=== PATIENT | female | born 1955 | race Caucasian/White ===

== ENCOUNTER 2020-04-29 09:09 | Outpatient (REF) | payer MEDICARE, OTHER, SELFPAY ==
--- NOTE | 2020-04-29 09:14 | MM_ITS ---
EXAMINATION: MM SCREENING DIGITAL BREAST TOMOSYNTHESIS, BILATERAL CLINICAL INFORMATION: Screening. Asymptomatic. The lifetime risk of breast cancer based on the Tyrer-Cuzick Model is 19%. COMPARISON: Mammography: 04/24/2019, 04/22/2018, 04/20/2017 TECHNIQUE: Digital breast tomosynthesis is performed in both the craniocaudal and mediolateral oblique views along with computer-aided detection (CAD). Synthesized 2D images are generated from the tomosynthesis. Additional exaggerated right CC view is provided. FINDINGS: The breasts are heterogeneously dense, which may obscure small masses (ACR BI-RADS breast composition Category c). Breast tissue composition borders on average fibroglandular. There are no significant masses, abnormal calcifications, or other abnormalities. No significant changes from prior studies. MM/MM tomosynthesis screening BI IMPRESSION: No significant changes from prior studies. ASSESSMENT: BI-RADS 1: Negative RECOMMENDATION: Routine annual mammography screening. This patient's information was entered into a reminder system with a target due date for their next mammogram.
== END 2020-04-29 09:10 | disposition home or self-care (01) ==
LOC: HO.MAMMO 09:09
PROVIDERS: PCP Internal Medicine; Visit Provider Internal Medicine
DX: Z12.31 Encounter for screening mammogram for malignant neoplasm of breast (principal)
CPT/HCPCS: 77063; 77067

== ENCOUNTER → 2021-01-05 08:41 | Outpatient (BNVA) | payer MEDICARE, OTHER, SELFPAY | PROVIDERS: PCP Internal Medicine; Visit Provider Advanced Practice Midwife ==

== ENCOUNTER 2021-03-30 08:45 | Outpatient (REF) | payer MEDICARE, OTHER, SELFPAY ==
[2021-03-30 11:37] LABS: MANUAL DIFF FLAG NO
[2021-03-30 11:55] LABS: Basophils Absolute Auto 0.1 X10*3/uL (0.0-0.2); Basophils Percent Auto 1.9 % (0-2); Eosinophils Absolute Auto 0.3 X10*3/uL (0.0-0.4); Eosinophils Percent Auto 8.3 % (0-4); Hematocrit 44.6 % (37-47); Hemoglobin 14.4 g/dl (12.0-16.0); Imm Gran Abs Auto 0.01 X10*3/uL (0.00-0.03); Imm Gran Pct Auto 0.3 % (0.0-0.4); Lymphocytes Absolute Auto 1.2 X10*3/uL (1.2-4.9); Lymphocytes Percent Auto 33.1 % (20-40); Mean Corpuscular HGB Conc 32.3 g/dl (31.0-35.0); Mean Corpuscular Hemoglobin 30.5 pg (27.0-33.0); Mean Corpuscular Volume 94.5 fL (80-98); Mean Platelet Volume 10.9 fL (9.4-12.3); Monocytes Absolute Auto 0.4 X10*3/uL (0.1-1.2); Monocytes Percent Auto 11.3 % (2-11); Neutrophils Absolute Auto 1.6 X10*3/uL (2.0-8.3); Neutrophils Percent Auto 45.1 % (45-73); Platelet Count 236 X10*3/uL (160-400); Red Blood Count 4.72 X10*6/uL (4.20-5.50); Red Cell Distribution Width 13.1 % (11.0-16.0); White Blood Count 3.6 X10*3/uL (4.8-10.8)
[2021-03-30 11:58] LABS: Alanine Aminotransferase 20 U/L (0-31); Albumin Level 4.3 g/dL (3.5-5.0); Alkaline Phosphatase 88 U/L (39-117); Anion Gap 11 (12-20); Aspartate Amino Transferase 16 U/L (5-31); Bilirubin Total 0.8 mg/dL (0.0-1.0); Blood Urea Nitrogen 16 mg/dL (9-16); Calcium 9.4 mg/dL (8.4-10.2); Carbon Dioxide 29 mmol/L (22-29); Chloride 105 mmol/L (96-108); Cholesterol 224 mg/dL; Estimated Glomerular Filt Rate > 60; Glucose Fasting 87 mg/dL (60-99); HDL Cholesterol 69 mg/dL; LDL Cholesterol Calculated 139 mg/dl; Potassium 3.9 mmol/L (3.3-5.1); Sodium 141 mmol/L (135-145); Total Protein 6.9 g/dL (6.5-8.0); Triglycerides 81 mg/dL
[2021-03-30 12:20] LABS: Vitamin D 25-OH Total 57.2 ng/mL (>30)
== END 2021-03-30 08:46 | disposition home or self-care (01) ==
LOC: HO.HMGCLDS 08:45
PROVIDERS: PCP Internal Medicine; Visit Provider Internal Medicine
DX: E78.00 Pure hypercholesterolemia, unspecified (principal); M54.9 Dorsalgia, unspecified; K21.9 Gastro-esophageal reflux disease without esophagitis; M85.80 Other specified disorders of bone density and structure, unspecified site
CPT/HCPCS: 36415; 80053; 80061; 82306; 85025

== ENCOUNTER 2021-05-03 13:17 | Outpatient (REF) | payer MEDICARE, OTHER, SELFPAY ==
--- NOTE | ~2021-05-03 | MM_ITS ---
EXAMINATION: BONE DENSITOMETRY CLINICAL INDICATION: Encounter for screening for osteoporosis. COMPARISON: Previous BD dated 04/10/2014 and baseline BD dated 05/28/2008. TECHNIQUE: Using a Android App Review Source DXA System (software version: 13.1) manufactured by [employer], dual-energy x-ray absorptiometry was performed of the lumbar spine and left hip. The images are of good technical quality. Summary results are attached. FINDINGS: AP SPINE L1-L4: Current: BMD 1.101 g/cm2, Z-score 2.3, T-score -0.7, normal, 0.5% increase from previous, 1.2% decrease from baseline (<5% change is not significant). Prior: BMD 1.095 g/cm2. Baseline: BMD 1.114 g/cm2. LEFT FEMUR, NECK: Current: BMD 0.813 g/cm2, Z-score 0.8, T-score -1.6, osteopenia. Prior: BMD 0.831 g/cm2. Baseline: BMD 0.981 g/cm2. LEFT FEMUR, TOTAL: Current: BMD 0.779 g/cm2, Z-score 0.4, T-score -1.8, osteopenia, 11.4% decrease from previous, 20.1% decrease from baseline (<5% change is not significant). Prior: BMD 0.879 g/cm2. Baseline: BMD 0.975 g/cm2. IDENTIFIED RISK FACTORS: Height loss, low body weight, family history (parental hip fracture), menopause. HISTORY OF FRACTURE: None listed. MEDICATIONS: Calcium supplements or multivitamin, vitamin D. MM/XR DEXA axial skeleton IMPRESSION: 1. DIAGNOSIS: Osteopenia based on the lowest T-score value of -1.8 in the total femur applying World Health Organization criteria. 2. 10-YEAR FRACTURE RISK PREDICTION, FRAX: Major osteoporotic fracture (clinical spine, forearm, hip or shoulder) 8.0%. Hip fracture 1.0%. 3. Treatment Recommendations: NOF guidelines recommend consideration for treatment in postmenopausal women and men age 50 and older presenting with the following: -A hip or vertebral (clinical or morphometric) fracture. -T-score less than or equal to -2.5 at the femoral neck or spine after appropriate evaluation to exclude secondary causes. -Low bone mass at the hip or spine and a 10-year fracture probability by FRAX of greater than or equal to 3% for hip fracture or greater than or equal to 20% for major osteoporotic fracture based on the [place] adapted WHO algorithm. 4. Other Recommendations: All treatment decisions require clinical judgment and consideration of individual patient factors, including patient preferences, comorbidities, previous drug use, risk factors not captured in the FRAX model (e.g. frailty, falls, vitamin D deficiency, increased bone turnover, interval significant decline in bone density) and possible under or overestimation of fracture risk by FRAX. Additional medical evaluation for secondary cause of low bone mineral density may be appropriate. FUTURE SCAN RECOMMENDATION: People with diagnosed cases of osteoporosis or at high risk for fracture should have regular bone mineral density tests. For patients eligible for Medicare, routine testing is allowed once every 2 years. The testing frequency can be increased to one year for patients who have rapidly progressing disease, those who are receiving or discontinuing medical therapy to restore bone mass, or have additional risk factors.
== END 2021-05-03 13:18 | disposition home or self-care (01) ==
LOC: HO.MAMMO 13:17
PROVIDERS: Visit Provider Internal Medicine
DX: Z13.820 Encounter for screening for osteoporosis (principal); M85.80 Other specified disorders of bone density and structure, unspecified site; Z78.0 Asymptomatic menopausal state; Z79.899 Other long term (current) drug therapy; Z87.81 Personal history of (healed) traumatic fracture
CPT/HCPCS: 77080

== ENCOUNTER 2021-05-11 15:05 | Outpatient (REF) | payer MEDICARE, OTHER, SELFPAY ==
--- NOTE | ~2021-05-11 | MM_ITS ---
EXAMINATION: MM SCREENING DIGITAL BREAST TOMOSYNTHESIS, BILATERAL CLINICAL INFORMATION: Screening. Asymptomatic. The lifetime risk of breast cancer based on the Tyrer-Cuzick Model is 16%. COMPARISON: Mammography: 04/29/2020, 04/24/2019, 04/22/2018 TECHNIQUE: Digital breast tomosynthesis is performed in both the craniocaudal and mediolateral oblique views along with computer-aided detection (CAD). Synthesized 2D images are generated from the tomosynthesis. FINDINGS: The breasts are heterogeneously dense, which may obscure small masses (ACR BI-RADS breast composition Category c). There are no significant masses, abnormal calcifications, or other abnormalities. Breast tissue composition borders on average fibroglandular. No significant changes. MM/MM tomosynthesis screening BI IMPRESSION: No mammographic evidence of malignancy. ASSESSMENT: BI-RADS 1: Negative RECOMMENDATION: Routine annual mammography screening. This patient's information was entered into a reminder system with a target due date for their next mammogram.
== END 2021-05-11 15:06 | disposition home or self-care (01) ==
LOC: HO.MAMMO 15:05
PROVIDERS: Visit Provider Internal Medicine
DX: Z12.31 Encounter for screening mammogram for malignant neoplasm of breast (principal)
CPT/HCPCS: 77063; 77067

== ENCOUNTER 2021-05-17 14:04 | Outpatient (REF) | payer MEDICARE, OTHER, SELFPAY ==
--- NOTE | ~2021-05-17 | XR_ITS ---
EXAMINATION: XR THORACIC SPINE XR LUMBAR SPINE CLINICAL INFORMATION: Pain COMPARISON: 04/16/2014 TECHNIQUE: 3 views of the thoracic spine. 3 views of the lumbar spine. FINDINGS: Scoliotic curvature of the spine with dextroscoliosis at the lower thoracic and upper lumbar spine. Grade 1 retrolisthesis of L1 on L2 and L2 on L3. Vertebral body height and alignment otherwise maintained. Disc spaces are maintained throughout the thoracic spine. Disc space narrowing at L1-L2, L2-L3, and L3-L4. Associated endplate osteophytes. Facet arthropathy which is greatest at the lumbar spine. The sacroiliac joints are symmetric. The visualized sacrum is intact. The visualized lungs are clear. Normal bowel gas pattern. XR/XR lumbar spine 2-3V IMPRESSION: Scoliotic curvature of the spine. Degenerative changes are present which are greatest at the upper lumbar spine. These have progressed since prior in 2013.
--- NOTE | ~2021-05-17 | XR_ITS ---
EXAMINATION: XR THORACIC SPINE XR LUMBAR SPINE CLINICAL INFORMATION: Pain COMPARISON: 04/16/2014 TECHNIQUE: 3 views of the thoracic spine. 3 views of the lumbar spine. FINDINGS: Scoliotic curvature of the spine with dextroscoliosis at the lower thoracic and upper lumbar spine. Grade 1 retrolisthesis of L1 on L2 and L2 on L3. Vertebral body height and alignment otherwise maintained. Disc spaces are maintained throughout the thoracic spine. Disc space narrowing at L1-L2, L2-L3, and L3-L4. Associated endplate osteophytes. Facet arthropathy which is greatest at the lumbar spine. The sacroiliac joints are symmetric. The visualized sacrum is intact. The visualized lungs are clear. Normal bowel gas pattern. XR/XR thoracic spine 3V IMPRESSION: Scoliotic curvature of the spine. Degenerative changes are present which are greatest at the upper lumbar spine. These have progressed since prior in 2013.
== END 2021-05-17 14:05 | disposition home or self-care (01) ==
LOC: HO.HMGCX 14:04
PROVIDERS: PCP Internal Medicine; Visit Provider Internal Medicine
DX: M41.9 Scoliosis, unspecified (principal)
CPT/HCPCS: 72072; 72100

== ENCOUNTER 2022-03-27 08:58 | Outpatient (REF) | payer MEDICARE, OTHER, SELFPAY ==
[2022-03-27 11:22] LABS: MANUAL DIFF FLAG NO
[2022-03-27 11:43] LABS: Basophils Absolute Auto 0.1 X10*3/uL (0.0-0.2); Basophils Percent Auto 1.9 % (0-2); Eosinophils Absolute Auto 0.5 X10*3/uL (0.0-0.4); Eosinophils Percent Auto 10.9 % (0-4); Hematocrit 46.4 % (37.0-47.0); Hemoglobin 15.1 g/dl (12.0-16.0); Imm Gran Abs Auto 0.02 X10*3/uL (0.00-0.03); Imm Gran Pct Auto 0.5 % (0.0-0.4); Lymphocytes Absolute Auto 1.6 X10*3/uL (1.2-4.9); Lymphocytes Percent Auto 38.1 % (20-40); Mean Corpuscular HGB Conc 32.5 g/dl (31.0-35.0); Mean Corpuscular Hemoglobin 30.8 pg (27.0-33.0); Mean Corpuscular Volume 94.5 fL (80.0-98.0); Mean Platelet Volume 10.7 fL (9.4-12.3); Monocytes Absolute Auto 0.5 X10*3/uL (0.1-1.2); Monocytes Percent Auto 11.9 % (2-11); Neutrophils Absolute Auto 1.5 x10*3/uL (2.0-8.3); Neutrophils Percent Auto 36.7 % (45-73); Platelet Count 247 X10*3/uL (160-400); Red Blood Count 4.91 X10*6/uL (4.20-5.50); Red Cell Distribution Width 12.7 % (11.0-16.0); White Blood Count 4.1 X10*3/uL (4.8-10.8)
[2022-03-27 12:13] LABS: Alanine Aminotransferase 21 U/L (0-31); Albumin Level 4.4 g/dL (3.5-5.0); Alkaline Phosphatase 94 U/L (39-117); Anion Gap 17 (12-20); Aspartate Amino Transferase 22 U/L (5-31); Bilirubin Total 0.4 mg/dL (0.0-1.0); Blood Urea Nitrogen 16 mg/dL (9-16); Calcium 9.5 mg/dL (8.4-10.2); Carbon Dioxide 28 mmol/L (22-29); Chloride 102 mmol/L (96-108); Cholesterol 244 mg/dL; Estimated Glomerular Filt Rate > 60; Glucose Fasting 90 mg/dL (60-99); HDL Cholesterol 75 mg/dL; LDL Cholesterol Calculated 149 mg/dl; Potassium 4.1 mmol/L (3.3-5.1); Sodium 143 mmol/L (135-145); Total Protein 7.2 g/dL (6.5-8.0); Triglycerides 104 mg/dL
== END 2022-03-27 08:59 | disposition home or self-care (01) ==
LOC: HO.HMGCLDS 08:58
PROVIDERS: PCP Internal Medicine; Visit Provider Internal Medicine
DX: Z00.00 Encounter for general adult medical examination without abnormal findings (principal)
CPT/HCPCS: 36415; 80053; 80061; 85025

== ENCOUNTER 2022-05-17 09:38 | Outpatient (REF) | payer MEDICARE, OTHER, SELFPAY ==
--- NOTE | ~2022-05-17 | MM_ITS ---
EXAMINATION: MM SCREENING DIGITAL BREAST TOMOSYNTHESIS, BILATERAL CLINICAL INFORMATION: Screening. Asymptomatic. Family history breast cancer, mother age 41 and maternal grandmother age 51. The lifetime risk of breast cancer based on the Tyrer-Cuzick Model is 15%. COMPARISON: Mammography: 05/11/2021, 04/29/2020, 04/24/2019 TECHNIQUE: Digital breast tomosynthesis is performed in both the craniocaudal and mediolateral oblique views along with computer-aided detection (CAD). Synthesized 2D images are generated from the tomosynthesis. FINDINGS: There are scattered areas of fibroglandular density (ACR BI-RADS breast composition Category b). Breast tissue composition borders on heterogeneously dense. There is no significant mass or developing density or architectural abnormality. Small circumscribed nodule periareolar 3:00 left breast is similar to prior exams, better appreciated on tomography. There are no abnormal calcifications. The axilla and skin contours are unremarkable. MM/MM tomosynthesis screening BI IMPRESSION: No significant changes from prior studies. ASSESSMENT: BI-RADS 2: Benign RECOMMENDATION: Routine annual mammography screening. This patient's information was entered into a reminder system with a target due date for their next mammogram.
== END 2022-05-17 09:39 | disposition home or self-care (01) ==
LOC: HO.MAMMO 09:38
PROVIDERS: PCP Internal Medicine; Visit Provider Internal Medicine
DX: Z12.31 Encounter for screening mammogram for malignant neoplasm of breast (principal)
CPT/HCPCS: 77063; 77067

== ENCOUNTER 2022-07-07 08:46 | Outpatient (REF) | payer MEDICARE, OTHER, SELFPAY ==
[2022-07-07 11:59] LABS: Cholesterol 217 mg/dL; HDL Cholesterol 64 mg/dL; LDL Cholesterol Calculated 138 mg/dl; Triglycerides 79 mg/dL
== END 2022-07-07 08:47 | disposition home or self-care (01) ==
LOC: HO.HMGCLDS 08:46
PROVIDERS: Visit Provider Internal Medicine
DX: E78.00 Pure hypercholesterolemia, unspecified (principal)
CPT/HCPCS: 36415; 80061

== ENCOUNTER 2023-03-16 07:21 | Outpatient (REF) | payer MEDICARE, OTHER, SELFPAY ==
[2023-03-16 11:29] LABS: MANUAL DIFF FLAG NO
[2023-03-16 11:46] LABS: Basophils Absolute Auto 0.1 X10*3/uL (0.0-0.2); Basophils Percent Auto 1.7 % (0-2); Eosinophils Absolute Auto 0.5 X10*3/uL (0.0-0.4); Eosinophils Percent Auto 12.6 % (0-4); Hematocrit 44.5 % (37.0-47.0); Hemoglobin 14.7 g/dl (12.0-16.0); Imm Gran Abs Auto 0.01 X10*3/uL (0.00-0.03); Imm Gran Pct Auto 0.2 % (0.0-0.4); Lymphocytes Absolute Auto 1.6 X10*3/uL (1.2-4.9); Lymphocytes Percent Auto 39.9 % (20-40); Mean Corpuscular Hemoglobin 31.5 pg (27.0-33.0); Mean Corpuscular Volume 95.3 fL (80.0-98.0); Mean Platelet Volume 10.6 fL (9.4-12.3); Monocytes Absolute Auto 0.5 X10*3/uL (0.1-1.2); Monocytes Percent Auto 12.1 % (2-11); Neutrophils Absolute Auto 1.4 x10*3/uL (2.0-8.3); Neutrophils Percent Auto 33.5 % (45-73); Platelet Count 231 X10*3/uL (160-400); Red Blood Count 4.67 X10*6/uL (4.20-5.50); Red Cell Distribution Width 12.7 % (11.0-16.0)
[2023-03-16 13:01] LABS: Alanine Aminotransferase 16 U/L (0-31); Albumin Level 4.4 g/dL (3.5-5.0); Alkaline Phosphatase 81 U/L (39-117); Anion Gap 15 (12-20); Aspartate Amino Transferase 20 U/L (5-31); Bilirubin Total 0.5 mg/dL (0.0-1.0); Blood Urea Nitrogen 19 mg/dL (9-16); Calcium 9.6 mg/dL (8.4-10.2); Carbon Dioxide 28 mmol/L (22-29); Chloride 102 mmol/L (96-108); Cholesterol 213 mg/dL (<200); Estimated Glomerular Filt Rate > 60; Glucose Fasting 76 mg/dL (60-99); HDL Cholesterol 72 mg/dL (>40); LDL Cholesterol Calculated 124 mg/dL (<100); Potassium 3.5 mmol/L (3.3-5.1); Sodium 141 mmol/L (135-145); Total Protein 7.4 g/dL (6.5-8.0); Triglycerides 88 mg/dL (<150)
[2023-03-16 13:20] LABS: Vitamin D 25-OH Total 70.7 ng/mL (>30)
== END 2023-03-16 07:22 | disposition home or self-care (01) ==
LOC: HO.HMGCLDS 07:21
PROVIDERS: PCP Internal Medicine; Visit Provider Internal Medicine
DX: E78.00 Pure hypercholesterolemia, unspecified (principal); M85.80 Other specified disorders of bone density and structure, unspecified site; K21.9 Gastro-esophageal reflux disease without esophagitis
CPT/HCPCS: 36415; 80053; 80061; 82306; 85025

== ENCOUNTER 2023-05-23 09:17 | Outpatient (REF) | payer MEDICARE, OTHER, SELFPAY | END 2023-05-23 09:18 | disposition home or self-care (01) | LOC: HO.MAMMO 09:17 | PROVIDERS: PCP Internal Medicine; Visit Provider Internal Medicine | DX: Z12.31 Encounter for screening mammogram for malignant neoplasm of breast (principal) | CPT/HCPCS: 77063; 77067 ==

== ENCOUNTER → 2023-05-23 09:30 | Outpatient (BNV) | payer MEDICARE, OTHER, SELFPAY | PROVIDERS: PCP Internal Medicine; Visit Provider Radiology Diagnostic Radiology | DX: Z12.31 Encounter for screening mammogram for malignant neoplasm of breast (principal) | CPT/HCPCS: 77063; 77067 ==

== ENCOUNTER 2023-10-23 10:12 | Outpatient (REF) | payer MEDICARE, OTHER, SELFPAY ==
[2023-10-23 11:09] LABS: MANUAL DIFF FLAG NO
[2023-10-23 11:14] LABS: Basophils Absolute Auto 0.1 X10*3/uL (0.0-0.2); Basophils Percent Auto 1.7 % (0-2); Eosinophils Absolute Auto 0.3 X10*3/uL (0.0-0.4); Eosinophils Percent Auto 8.6 % (0-4); Hemoglobin 14.5 g/dl (12.0-16.0); Imm Gran Abs Auto 0.01 X10*3/uL (0.00-0.03); Imm Gran Pct Auto 0.3 % (0.0-0.4); Lymphocytes Absolute Auto 1.2 X10*3/uL (1.2-4.9); Lymphocytes Percent Auto 33.4 % (20-40); Mean Corpuscular Hemoglobin 31.3 pg (27.0-33.0); Monocytes Absolute Auto 0.5 X10*3/uL (0.1-1.2); Monocytes Percent Auto 13.4 % (2-11); Neutrophils Absolute Auto 1.5 x10*3/uL (2.0-8.3); Neutrophils Percent Auto 42.6 % (45-73); Platelet Count 214 X10*3/uL (160-400); Red Blood Count 4.63 X10*6/uL (4.20-5.50); Red Cell Distribution Width 12.7 % (11.0-16.0); White Blood Count 3.6 X10*3/uL (4.8-10.8)
[2023-10-23 12:59] LABS: Alanine Aminotransferase 16 U/L (0-31); Albumin Level 4.3 g/dL (3.5-5.0); Alkaline Phosphatase 89 U/L (39-117); Anion Gap 13 (12-20); Aspartate Amino Transferase 18 U/L (5-31); Bilirubin Total 0.3 mg/dL (0.0-1.0); Blood Urea Nitrogen 22 mg/dL (9-16); Calcium 9.7 mg/dL (8.4-10.2); Carbon Dioxide 30 mmol/L (22-29); Chloride 100 mmol/L (96-108); Estimated Glomerular Filt Rate > 60; Lipase 37 U/L (8-78); Potassium 4.1 mmol/L (3.3-5.1); Sodium 139 mmol/L (135-145); Total Protein 7.3 g/dL (6.5-8.0)
[2023-10-23 13:09] LABS: Glucose Random 49 mg/dL (60-115)
== END 2023-10-23 10:13 | disposition home or self-care (01) ==
LOC: HO.10HDL 10:12
PROVIDERS: Visit Provider Internal Medicine
DX: R10.9 Unspecified abdominal pain (principal); R63.4 Abnormal weight loss; K21.9 Gastro-esophageal reflux disease without esophagitis
CPT/HCPCS: 36415; 80053; 83690; 85025

== ENCOUNTER 2023-10-24 13:13 | Outpatient (REF) | payer MEDICARE, OTHER, SELFPAY ==
[2023-10-24 16:45] LABS: Insulin 5 uU/mL (2-29)
== END 2023-10-24 13:14 | disposition home or self-care (01) ==
LOC: HO.HMGCLDS 13:13
PROVIDERS: PCP Internal Medicine; Visit Provider Internal Medicine
DX: D64.9 Anemia, unspecified (principal)
CPT/HCPCS: 36415; 83525

== ENCOUNTER 2023-12-18 09:15 | Outpatient (REF) | payer MEDICARE, OTHER, SELFPAY ==
[2023-12-18 10:43] LABS: MANUAL DIFF FLAG NO
[2023-12-18 10:56] LABS: Basophils Absolute Auto 0.1 X10*3/uL (0.0-0.2); Basophils Percent Auto 1.3 % (0-2); Eosinophils Absolute Auto 0.5 X10*3/uL (0.0-0.4); Eosinophils Percent Auto 10.8 % (0-4); Hematocrit 44.8 % (37.0-47.0); Hemoglobin 14.7 g/dl (12.0-16.0); Lymphocytes Absolute Auto 1.1 X10*3/uL (1.2-4.9); Lymphocytes Percent Auto 23.1 % (20-40); Mean Corpuscular HGB Conc 32.8 g/dl (31.0-35.0); Mean Corpuscular Hemoglobin 31.7 pg (27.0-33.0); Mean Corpuscular Volume 96.6 fL (80.0-98.0); Mean Platelet Volume 10.6 fL (9.4-12.3); Monocytes Absolute Auto 0.5 X10*3/uL (0.1-1.2); Monocytes Percent Auto 10.1 % (2-11); Neutrophils Absolute Auto 2.5 x10*3/uL (2.0-8.3); Neutrophils Percent Auto 54.7 % (45-73); Platelet Count 216 X10*3/uL (160-400); Red Blood Count 4.64 X10*6/uL (4.20-5.50); Red Cell Distribution Width 12.6 % (11.0-16.0); White Blood Count 4.5 X10*3/uL (4.8-10.8)
[2023-12-18 11:26] LABS: Erythrocyte Sedimentation Rate 2 MM/HR (0-20)
[2023-12-18 11:37] LABS: Alanine Aminotransferase 15 U/L (0-31); Albumin Level 4.4 g/dL (3.5-5.0); Alkaline Phosphatase 99 U/L (39-117); Amylase 71 U/L (28-100); Aspartate Amino Transferase 17 U/L (5-31); Bilirubin Direct < 0.2 mg/dL (0.0-0.5); Bilirubin Total 0.2 mg/dL (0.0-1.0); C Reactive Protein < 0.04 mg/dL (< or = 0.50); Lipase 35 U/L (8-78); Total Protein 7.2 g/dL (6.5-8.0)
[2023-12-19 13:48] LABS: Gliadin Deamidated IgA Ab <1.0 U/mL; Gliadin Deamidated IgG Ab <1.0 U/mL; Transglutaminase Ab IgG <1.0 U/mL; Transglutaminase IgA <1.0 U/mL
[2023-12-20 08:48] LABS: Immunoglobulin A 94 mg/dL (70-320)
[2023-12-26 12:03] LABS: Endomysial IgA Antibody Negative (Negative)
== END 2023-12-18 09:16 | disposition home or self-care (01) ==
LOC: HO.10HDL 09:15
PROVIDERS: Visit Provider Internal Medicine
DX: R10.13 Epigastric pain (principal); R93.3 Abnormal findings on diagnostic imaging of other parts of digestive tract; K21.9 Gastro-esophageal reflux disease without esophagitis
CPT/HCPCS: 36415; 80076; 82150; 82784; 83690; 85025; 85652; 86140; 86231; 86258; 86364

== ENCOUNTER 2023-12-19 10:16 | Outpatient (REF) | payer MEDICARE, OTHER, SELFPAY ==
--- NOTE | ~2023-12-19 | US_ITS ---
EXAMINATION: US ABDOMEN COMPLETE CLINICAL INFORMATION: History of abnormal CT imaging exam. Epigastric abdominal pain. COMPARISON: None available. TECHNIQUE: Real-time imaging of the abdominal viscera. FINDINGS: PANCREAS: Normal. ABDOMINAL AORTA: The proximal, mid, and distal segments are normal in caliber. INFERIOR VENA CAVA: Visualized portions are normal. LIVER: Liver has normal size, contour and parenchymal echotexture. No evidence of focal lesion or intrahepatic ductal dilatation. GALLBLADDER: The gallbladder is physiologically distended without evidence of stones, sludge, wall thickening or pericholecystic fluid. 0.3 cm gallbladder polyp is noted. No imaging follow-up is recommended for a polyp of this size. COMMON BILE DUCT: Normal in caliber measuring 0.6 cm in diameter. KIDNEYS: The kidneys have normal size, cortical thickness and echotexture. No renal mass, nephrolithiasis or hydronephrosis. The right kidney is 11.9 cm and left kidney 11.5 cm in length. SPLEEN: Normal. The spleen measures 10.2 cm in maximum dimension. FREE FLUID: None. US/US abdomen complete IMPRESSION: * No acute sonographic abnormalities in the visualized abdomen. No evidence of cholelithiasis, cholecystitis or biliary tract obstruction. * Incidentally noted is a 0.3 cm gallbladder polyp.
== END 2023-12-19 10:17 | disposition home or self-care (01) ==
LOC: HO.HMGCX 10:16
PROVIDERS: PCP Internal Medicine; Visit Provider Internal Medicine
DX: R10.13 Epigastric pain (principal); R93.3 Abnormal findings on diagnostic imaging of other parts of digestive tract
CPT/HCPCS: 76700

== ENCOUNTER 2023-12-20 13:41 | Day surgery (SDC) | payer MEDICARE, OTHER, SELFPAY ==
[2023-12-20 14:01] VITALS: BMI 18.5
[2023-12-20 14:03] VITALS: BP 169/92; PULSE 57; RESP 16; TEMP 36.6; O2SAT 98
[2023-12-20] MEDS: Lactated Ringers 1,000 ML 50 ML IVCONT (14:23)
--- NOTE | 2023-12-20 14:24 | HO.ANESPROP2 ---
HPI - Anesthesia Eval Consult details Narrative: 68 yo female patient for EGD PMF Active Problems Active Problems: Back pain Kyphosis GERD Abdominal pain Past Medical History Medical History Benign breast lumps GERD (gastroesophageal reflux disease) Tubular adenoma Kyphosis Family History Family History Mother Breast cancer Heart attack Father Stroke HTN (hypertension) Family history of problems with anesthesia: No Surgical History Surgical History Hx of colonoscopy History of Problems with Anesthesia: No Social History Social History Household Members: None Housing: House Alcohol intake: never Patient Tobacco Use Status: Never used Tobacco Use of substances other than those prescribed or required for medical reasons: No Are you DNR?: No Advance Directives: No Advance Directives Information Provided: Yes Meds Allergies Allergy/AdvReac Type Severity Reaction Status Date / Time No Known Allergies Allergy Verified 12/20/23 13:57 Active Medications: Current Medications Lactated Ringer's (Lr) 1,000 mls @ 50 mls/hr IVCONT .Q20H GERALD Last Admin: 12/20/23 14:23 Dose: 50 mls/hr Home Medications ?Medication ?Instructions ?Recorded ?Confirmed ?Last Taken ?Type Claritin 10 mg PO DAILY 12/19/23 12/20/23 Unknown History CoQ-10 12/19/23 Unknown History Tylenol 12/19/23 Unknown History flaxseed oil 12/19/23 Unknown History gabapentin 100 mg tablet 100 mg PO BID 12/19/23 12/19/23 12/20/23 09:30 History magnesium 12/19/23 12/19/23 Unknown History multivitamin 12/19/23 Unknown History omeprazole 20 mg capsule,delayed 20 mg PO BID 12/19/23 12/19/23 12/20/23 07:15 History release Exam Height,Weight and Vital Signs: Height 5 ft 5 in Weight 50.53 kg Last Vital Signs Temp 97.9 F 12/20/23 14:03 Pulse 57 12/20/23 14:03 Resp 16 12/20/23 14:03 BP 169/92 H 12/20/23 14:03 Pulse Ox 98 12/20/23 14:03 O2 Del Method Room Air 12/20/23 14:03 Airway Mallampati Class: II TM Dist: >3cm Neck ROM: Full Loose/Missing/Broken Teeth: No (Denies broken, loose, missing teeth) Heart: RRR Lungs: CTAB Assessment and Plan Assessment Anesthesia Assessment: Anesthesia Plan Discussed and Chart Reviewed Final Anesthetic Review Family History of Problems with Anesthesia: No History of Problems with Anesthesia: No NPO: Yes ASA Class: II Final Preanesthetic Review: No Changes in Pt Med Stat, Meds/Allgs Chart Reviewed, Consent Obtained/Reviewed and Anes Risks/Benef Reviewed Patient Risk: Low Procedure Risk: Low Assessment/Block/Sedation in SS: Assess/Block/Sedation-SS Anesthetic Plan Anesthetic Plan: TIVA Disposition: Standard PACU
[2023-12-20 15:17] VITALS: BP 101/51; PULSE 73; RESP 16; TEMP 36.3; O2SAT 97
--- NOTE | 2023-12-20 15:19 | P.BOP_ITS ---
Brief Operative Note Date of Service: 12/20/23 Pre-op diagnosis: Abnormal CT of small bowel Post-op diagnosis: other (Hiatal hernia, normal small bowel) Procedure: EGD with Enteroscopy with biopsies Surgeon: Charli Hart MD Anesthesia: MAC Was an Fisheries Technical Officer used for this Procedure?: No Estimated blood loss (mL): 2.0 Pathology: other (A. Jejunum) Condition: stable Disposition: PACU
[2023-12-20 15:32] VITALS: BP 89/52; PULSE 61; RESP 16; O2SAT 96
[2023-12-20 15:47] VITALS: BP 143/63; PULSE 57; RESP 16; TEMP 36.1; O2SAT 96
--- NOTE | 2023-12-20 17:29 | OP_ITS ---
DATE OF SERVICE: 12/20/2023 SURGEON: Charli Hart MD INDICATIONS: The patient presents for evaluation of previous abdominal discomfort and abnormal CT scan of GI tract. Full consent has been obtained from her for this, including risks of bleeding and perforation. PREOPERATIVE DIAGNOSIS: POSTOPERATIVE DIAGNOSIS: PROCEDURE PERFORMED: Esophagogastroduodenoscopy with small bowel enteroscopy and biopsies. ESTIMATED BLOOD LOSS: COMPLICATIONS: ANESTHESIA: Monitored anesthesia care. ASSISTANTS: SPECIMENS: PREOPERATIVE DIAGNOSES: Abdominal pain and abnormal CT scan of gastrointestinal tract. POSTOPERATIVE DIAGNOSES: Abdominal pain, abnormal CT scan of gastrointestinal tract, hiatal hernia. DESCRIPTION OF PROCEDURE: The patient was placed in the left lateral decubitus position. The Olympus video pediatric colonoscope was then entered into the oropharynx and upper esophagus under direct vision. The scope was passed slowly to the distal esophagus. The gastroesophageal junction appeared normal at 34 cm. There was no sign of any esophagitis nor Villanueva esophagus. The scope was advanced to the pylorus. The duodenum was cannulated. The duodenum including the bulb appeared normal. The scope was then advanced as far into the small bowel as possible. I went up to between 120 and 130 cm on the colonoscope. I was obviously well past the duodenum. All of the small bowel mucosa appeared normal. I did obtain biopsies in the jejunum. The scope was slowly withdrawn assessing all the small bowel mucosa as carefully as possible and everything appeared normal. There was no sign of any inflammatory changes nor other abnormalities. The scope was withdrawn back into the stomach. The gastric antrum and body appeared normal with good peristalsis. The scope was retroflexed, visualizing the proximal stomach carefully, which appeared normal, without any sign of mass or ulceration, other than some hyperplastic-appearing gastric polyps. The scope was straightened and withdrawn back to the esophagus. The esophageal mucosa appeared normal. The scope was withdrawn from the patient. She tolerated the procedure well and was returned to the recovery area in stable condition. IMPRESSION: Hiatal hernia. PLAN: The results of the biopsies will be checked. At this point, as of our conversation 2 days ago when she was in the office, she has been definitely feeling better than earlier in the year. The CT scan findings were somewhat indefinite and nonspecific. Her gallbladder ultrasound done yesterday was normal and without any sign of stones. Therefore, we decided that if she is continuing to improve and feel better, and the workup with the ultrasound and today's procedure is not revealing, we would then plan to simply observe things rather than put her through any further testing at this time. Of note, her laboratories including a sed rate and C-reactive protein were also normal. She does have celiac disease serologies pending. If her symptoms were to persist or relapse, then we could certainly obtain further studies with a small-bowel series, MRI with enterography, and possible small bowel capsule study. However, if things do continue to improve as they are, then we could simply observe things and see her for followup in the office. This has been discussed with her brother, Reynaldo as well. MD VIKASH Stafford/GIOVANNY / [id number] MTDD
--- NOTE | 2023-12-21 07:42 | PC.NURSE ---
24hr update documented on paper.
== END 2023-12-20 15:58 | disposition home or self-care (01) ==
PROVIDERS: PCP Internal Medicine; Visit Provider Internal Medicine
PROC: 0DJ08ZZ Inspection of Upper Intestinal Tract, Via Natural or Artificial Opening Endoscopic (ICD-10-PCS; CPT 43235; principal; 2023-12-20 14:40)
DX: K44.9 Diaphragmatic hernia without obstruction or gangrene (principal); R10.13 Epigastric pain; R93.3 Abnormal findings on diagnostic imaging of other parts of digestive tract
CPT/HCPCS: 43239; 88305; J2704

== ENCOUNTER 2024-03-19 09:05 | Outpatient (REF) | payer MEDICARE, OTHER, SELFPAY ==
[2024-03-19 09:56] LABS: MANUAL DIFF FLAG NO
[2024-03-19 10:13] LABS: Basophils Absolute Auto 0.1 X10*3/uL (0.0-0.2); Basophils Percent Auto 1.9 % (0-2); Eosinophils Absolute Auto 0.5 X10*3/uL (0.0-0.4); Eosinophils Percent Auto 12.5 % (0-4); Hematocrit 46.4 % (37.0-47.0); Hemoglobin 15.3 g/dl (12.0-16.0); Lymphocytes Absolute Auto 1.5 X10*3/uL (1.2-4.9); Lymphocytes Percent Auto 35.4 % (20-40); Mean Corpuscular Hemoglobin 31.7 pg (27.0-33.0); Mean Corpuscular Volume 96.3 fL (80.0-98.0); Mean Platelet Volume 10.6 fL (9.4-12.3); Monocytes Absolute Auto 0.5 X10*3/uL (0.1-1.2); Monocytes Percent Auto 11.8 % (2-11); Neutrophils Absolute Auto 1.6 x10*3/uL (2.0-8.3); Neutrophils Percent Auto 38.4 % (45-73); Platelet Count 239 X10*3/uL (160-400); Red Blood Count 4.82 X10*6/uL (4.20-5.50); Red Cell Distribution Width 12.5 % (11.0-16.0); White Blood Count 4.2 X10*3/uL (4.8-10.8)
[2024-03-19 10:35] LABS: Alanine Aminotransferase 18 U/L (0-31); Albumin Level 4.4 g/dL (3.5-5.0); Alkaline Phosphatase 88 U/L (39-117); Anion Gap 12 (12-20); Aspartate Amino Transferase 20 U/L (5-31); Bilirubin Total 0.4 mg/dL (0.0-1.0); Blood Urea Nitrogen 20 mg/dL (9-16); Calcium 9.2 mg/dL (8.4-10.2); Carbon Dioxide 29 mmol/L (22-29); Chloride 104 mmol/L (96-108); Cholesterol 218 mg/dL (<200); Estimated Glomerular Filt Rate > 60; Glucose Fasting 84 mg/dL (60-99); HDL Cholesterol 76 mg/dL (>40); LDL Cholesterol Calculated 126 mg/dL (<100); Potassium 3.6 mmol/L (3.3-5.1); Sodium 141 mmol/L (135-145); Total Protein 7.3 g/dL (6.5-8.0); Triglycerides 81 mg/dL (<150)
[2024-03-19 10:37] LABS: Vitamin D 25-OH Total 74.9 ng/mL (>30)
== END 2024-03-19 09:06 | disposition home or self-care (01) ==
LOC: HO.HMGCLDS 09:05
PROVIDERS: PCP Internal Medicine; Visit Provider Internal Medicine
DX: E78.00 Pure hypercholesterolemia, unspecified (principal); M81.0 Age-related osteoporosis without current pathological fracture; K21.9 Gastro-esophageal reflux disease without esophagitis
CPT/HCPCS: 36415; 80053; 80061; 82306; 85025

== ENCOUNTER 2024-04-04 10:11 | Outpatient (REF) | payer MEDICARE, OTHER, SELFPAY ==
--- NOTE | ~2024-04-04 | MM_ITS ---
EXAMINATION: BONE DENSITOMETRY CLINICAL INDICATION: Menopause. COMPARISON: Previous BD dated 05/03/2021 and baseline BD dated 05/28/2008. TECHNIQUE: Using a BIMA DXA System (software version: 13.1) manufactured by [employer], dual-energy x-ray absorptiometry was performed of the lumbar spine and left hip. The images are of good technical quality. Summary results are attached. FINDINGS: LEFT FEMUR, NECK: Current: BMD 0.786 g/cm2, Z-score 0.1, T-score -1.8, osteopenia. Prior: BMD 0.813 g/cm2. Baseline: BMD 0.981 g/cm2. LEFT FEMUR, TOTAL: Current: BMD 0.733 g/cm2, Z-score -0.5, T-score -2.2, osteopenia, 5.9% decrease from previous, 24.8% decrease from baseline (<5% change is not significant). Prior: BMD 0.779 g/cm2. Baseline: BMD 0.975 g/cm2. AP SPINE L1-L4: Current: BMD 0.942 g/cm2, Z-score 0.1, T-score -2.0, osteopenia, 14.4% decrease from previous, 15.4% decrease from baseline (<5% change is not significant). Prior: BMD 1.101 g/cm2. Baseline: BMD 1.114 g/cm2. IDENTIFIED RISK FACTORS: Menopause, family history (parent hip fracture), height loss, low body weight. HISTORY OF FRACTURE: None listed. MEDICATIONS: Calcium, multivitamin. MM/XR DEXA axial skeleton IMPRESSION: 1. DIAGNOSIS: Osteopenia based on the lowest T-score value of -2.2 in the total femur applying World Health Organization criteria. 2. 10-YEAR FRACTURE RISK PREDICTION, FRAX: Major osteoporotic fracture (clinical spine, forearm, hip or shoulder) 15.3%. Hip fracture 3.2%. 3. Treatment Recommendations: NOF guidelines recommend consideration for treatment in postmenopausal women and men age 50 and older presenting with the following: -A hip or vertebral (clinical or morphometric) fracture. -T-score less than or equal to -2.5 at the femoral neck or spine after appropriate evaluation to exclude secondary causes. -Low bone mass at the hip or spine and a 10-year fracture probability by FRAX of greater than or equal to 3% for hip fracture or greater than or equal to 20% for major osteoporotic fracture based on the [place] adapted WHO algorithm. 4. Other Recommendations: All treatment decisions require clinical judgment and consideration of individual patient factors, including patient preferences, comorbidities, previous drug use, risk factors not captured in the FRAX model (e.g. frailty, falls, vitamin D deficiency, increased bone turnover, interval significant decline in bone density) and possible under or overestimation of fracture risk by FRAX. Additional medical evaluation for secondary cause of low bone mineral density may be appropriate. FUTURE SCAN RECOMMENDATION: People with diagnosed cases of osteoporosis or at high risk for fracture should have regular bone mineral density tests. For patients eligible for Medicare, routine testing is allowed once every 2 years. The testing frequency can be increased to one year for patients who have rapidly progressing disease, those who are receiving or discontinuing medical therapy to restore bone mass, or have additional risk factors. Electronically signed by: Jamar Shelton MD 04/10/2024 03:14 PM EDT JERRY
== END 2024-04-04 10:12 | disposition home or self-care (01) ==
LOC: HO.MAMMO 10:11
PROVIDERS: PCP Internal Medicine; Visit Provider Internal Medicine
DX: M85.89 Other specified disorders of bone density and structure, multiple sites (principal); Z78.0 Asymptomatic menopausal state
CPT/HCPCS: 77080

== ENCOUNTER 2024-05-26 09:12 | Outpatient (REF) | payer MEDICARE, OTHER, SELFPAY | END 2024-05-26 09:13 | disposition home or self-care (01) | LOC: HO.MAMMO 09:12 | PROVIDERS: PCP Internal Medicine; Visit Provider Internal Medicine | DX: Z12.31 Encounter for screening mammogram for malignant neoplasm of breast (principal) | CPT/HCPCS: 77063; 77067 ==

== ENCOUNTER → 2024-05-26 09:30 | Outpatient (BNV) | payer MEDICARE, OTHER, SELFPAY | PROVIDERS: PCP Internal Medicine; Visit Provider Internal Medicine | DX: Z12.31 Encounter for screening mammogram for malignant neoplasm of breast (principal) | CPT/HCPCS: 77063; 77067 ==

== ENCOUNTER 2024-07-02 08:48 | Outpatient (REF) | payer MEDICARE, OTHER, SELFPAY ==
--- NOTE | ~2024-07-02 | MM_ITS ---
EXAMINATION: MM DIAGNOSTIC DIGITAL BREAST TOMOSYNTHESIS, LEFT Limited left breast ultrasound. CLINICAL INFORMATION: Call back from screening for focal asymmetry in the left breast. COMPARISON: Mammography: Comparison is made with prior available imaging. TECHNIQUE: Digital breast tomosynthesis is performed in both the craniocaudal and mediolateral oblique views along with computer-aided detection (CAD). Synthesized 2D images are generated from the tomosynthesis. Limited left breast ultrasound. FINDINGS: The breasts are heterogeneously dense, which may obscure small masses (ACR BI-RADS breast composition Category c). Circumscribed oval mass in the retroareolar region lower outer breast persist on additional imaging projections at anterior depth. No suspicious calcifications or other abnormal findings. Targeted color Doppler ultrasound scanning from 12-2 o'clock demonstrates normal fibroglandular breast tissue. Targeted color Doppler ultrasound 3:00 1 cm from the nipple demonstrates a hypoechoic solid mass measuring 4 x 4 x 4 mm which correlates with the focal asymmetry on mammography. MM/MM tomosynthesis added views L IMPRESSION: Solid mass at 3:00 1 cm from the nipple Mammography. Recommend histology with ultrasound guided core needle biopsy at this time. The findings and recommendations were discussed with the patient the procedure will be scheduled. ASSESSMENT: BI-RADS BI-RADS 4 - Suspicious finding RECOMMENDATION: Biopsy recommended Results were provided to the patient at time of visit by the technologist. This patient's information was entered into a reminder system with a target due date for their next mammogram. Electronically signed by: Haven Doshi DO 07/02/2024 12:29 PM [facility]
--- OUTSIDE RECORDS SUMMARY | 2024-07-02 09:04 | XMS_ITS | Patient Health Record ---
Author Organization [facility] [place] Address [address] [place] [address] Care Team Providers Care Manager Of Procurement Name Role Phone Bishop Hansen MD Primary Care Provider Magen Arrington Unavailable [phone] Allergies Allergen (clinical drug ingredient) Drug/Non Drug Allergy documented on EMR Reaction Allergy Type Onset Date Status Codeine Phosphate dizzy Drug Allergy Active meperidine Demerol nausea Drug Allergy Active Cortisone leg cramps Drug Allergy Active Adhesive rash Allergy Active Reason For Referral No Information Medications Medication SIG (Take, Route, Frequency, Duration) Notes Start Date End Date Status Doxycycline Hyclate 100 MG 1 capsule Orally Twice a day for 7 days 09/06/2022 Active Omeprazole Active Meloxicam 15 MG 1 tablet Orally Once a day for 30 day(s) Active Centrum Silver Activ e Calcium + D3 600-200 MG-UNIT 1 tablet with a meal Orally Once a day for 30 day(s) Active Stool Softener 100 MG 1 capsule as neede d Orally Once a day for 30 day(s) Active Gabapentin Active Flaxseed Oil 1000 MG as directed Orally Active Night Splint AFO - L1930 as directed 08/07/2018 Unknown Magnesium 250 MG 2 tablet with a meal Orally Once a day Active Ibuprofen Active Claritin Active Ranitidine Not-Takin g Tylenol Active Doxycycline Hyclate 100 MG 1 capsule Orally Once a day for 10 day(s) 8 days Active Zolpidem Tartrate 5 MG 1/2 tablet at bed time Orally prn Unknown CoQ10 100 MG as directed Orally Active Loratadine 10 MG 1 tablet Orally Once a day for 30 day(s) Unknown Immunizations Vaccine Route Administration Date Status Comme nts COVID-19 Nikhil & Nikhil/Lamine Unknown 09/06/2022 R efused Social History Tobacco Use: Social History Observation Description Date Details (start date - stop date) Never Smoker NA - NA Tobacco Use/Smoking Question Answer Notes Are you a: nonsmoker Additional Findings: Tobacco Non-User Current no n-smoker Alcohol Screen Question Answer Notes Did you have a drink containing alcohol in the p ast year? Yes Points 0 Interpretation Negative Tobacco use other than smoking: Question Answer Notes Are you an other tobacco user? 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 [place] [address] [id number] [place], [place] Self - patient is the insured [facility] [address] [place] [address] [id number] [place] Self - patient is the insured Medical (General) History Medical History History ICD Code Back,Hip,and Knee pain Broken bones Headaches/Eye Migraines Chicken pox Arthritis Surgical History Surgery Date(Month/Year) tonsillectomy 1967 breast mass removal 03/1991
== END 2024-07-02 08:49 | disposition home or self-care (01) ==
LOC: HO.MAMMO 08:48
PROVIDERS: PCP Internal Medicine; Visit Provider Internal Medicine
DX: N64.89 Other specified disorders of breast (principal)
CPT/HCPCS: 76642; 77061; 77065

== ENCOUNTER → 2024-07-02 09:00 | Outpatient (BNV) | payer MEDICARE, OTHER, SELFPAY | PROVIDERS: PCP Internal Medicine; Visit Provider Internal Medicine | DX: N63.23 Unspecified lump in the left breast, lower outer quadrant (principal); R92.332 Mammographic heterogeneous density, left breast | CPT/HCPCS: 76642; 77065; G0279 ==

== ENCOUNTER → 2024-07-18 10:46 | Outpatient (AMB) | payer MEDICARE, OTHER, SELFPAY | END | disposition home or self-care (01) | PROVIDERS: PCP Internal Medicine; Visit Provider Surgery | CPT/HCPCS: 99204 ==

== ENCOUNTER → 2024-07-18 10:46 | Outpatient (BNVA) | payer MEDICARE, OTHER, SELFPAY | PROVIDERS: PCP Internal Medicine; Visit Provider Surgery | DX: R92.8 Other abnormal and inconclusive findings on diagnostic imaging of breast (principal); N63.25 Unspecified lump in the left breast, overlapping quadrants; Z80.3 Family history of malignant neoplasm of breast; Z91.89 Other specified personal risk factors, not elsewhere classified | CPT/HCPCS: 99202 ==

== ENCOUNTER 2024-07-24 07:25 | Outpatient (REF) | payer MEDICARE, OTHER, SELFPAY ==
--- NOTE | ~2024-07-24 | MM_ITS ---
PROCEDURE: ULTRASOUND-GUIDED LEFT BREAST BIOPSY CLINICAL INFORMATION: Subdermal left breast mass at 3:00. COMPARISON: Comparison is made with available prior examinations. TECHNIQUE: The details of the procedure, as well as the risks, benefits, and alternatives to the procedure were explained to the patient in detail and all of her questions were answered, after which, written informed consent was obtained. PROCEDURE: Prior to the procedure, sonography revealed a subdermal hypoechoic mass at 3:00. A time-out was performed, the lesion intended for biopsy was targeted and the skin of the left breast was then prepped and draped in the usual sterile fashion. Using sonographic guidance, sterile technique, and 1% lidocaine without epinephrine for local anesthesia, a total of 5 cores were obtained through the targeted area with a 14-gauge biopsy device. At the completion of tissue sampling, a single coil metallic clip was deposited at the biopsy site. An appropriate sample was obtained. The postprocedure 2-view direct digital mammogram reveals satisfactory positioning of the biopsy clip. The patient tolerated the procedure well and, after assuring adequate hemostasis, was discharged in good condition after reviewing postbiopsy breast care instructions. Final pathology results are pending. MM/MM tomosynthesis diagnostic LT IMPRESSION: 1. Uncomplicated sonographically-guided core biopsy of the left breast. The 2-view direct digital postprocedure mammogram reveals satisfactory positioning of the biopsy clip. 2. Final pathology results are pending. A separate report with final recommendations will be issued once these results are made available. Electronically signed by: Haven Doshi DO 07/24/2024 09:59 AM [facility]
[2024-07-24] MEDS: Sodium Bicarbonate 8.4% 50 MEQ/50 ML VIAL SUBCUT (08:49)
[2024-07-24] MEDS: Lidocaine HCl 1 % 20 ML VIAL 9 ML SUBCUT (08:49)
== END 2024-07-24 07:26 | disposition home or self-care (01) ==
LOC: HO.MAMMO 07:25
PROVIDERS: PCP Internal Medicine; Visit Provider Surgery
DX: R92.8 Other abnormal and inconclusive findings on diagnostic imaging of breast (principal)
CPT/HCPCS: 19083; 77061; 77065; 88305; A4648; J2003

== ENCOUNTER → 2024-07-24 08:00 | Outpatient (BNV) | payer MEDICARE, OTHER, SELFPAY | PROVIDERS: PCP Internal Medicine; Visit Provider Internal Medicine | DX: N63.15 Unspecified lump in the right breast, overlapping quadrants (principal) | CPT/HCPCS: 19083; 77065; G0279 ==

== ENCOUNTER 2024-08-01 09:26 | Outpatient (AMB) | payer MEDICARE, OTHER, SELFPAY ==
--- NOTE | 2024-08-01 09:35 | MHC.OFFVIS ---
Vital Signs 08/01/24 09:39 Height 5 ft 5 in Weight 114 lb 10.246 oz BMI 19.1 Respiration 16 Pulse 62 Intake Visit Reasons: s/p US BX (L) Breast 3:00 mass/Results Intake Note: Patient is seen in office for ultrasound biopsy RESULTS, left breast 3 o'clock mass. 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 This was confirmed on compression images as well felt to be suspicious for malignancy. Ultrasound-guided core biopsy was recommended in his been scheduled at the [facility] on 07/24/2024. She denies any current breast symptoms including breast pain, nipple discharge, skin changes, palpable mass or enlarged lymph nodes. She reports a previous right breast biopsy performed by Dr. Hernández in 1990 which was benign. Her family history is significant for her mother having breast cancer at the age of 41 and maternal grandmother having breast cancer diagnosed at the age of 55. Her menarche was the age of 12 and menopause at the age of 57. She is G0. She used hormone replacement therapy for very short time due to heavy menstrual bleeding from fibroids. She denies Ashkenazi Bahai heritage. She underwent ultrasound-guided core biopsy 1 week ago. Pathology revealed mainly adipose tissue with no evidence of atypia or malignancy. Routine follow-up mammogram in 1 year is recommended. [facility] Medical History Benign breast lumps GERD (gastroesophageal reflux disease) Tubular adenoma Kyphosis Surgical History History of lumpectomy of right breast Hx of colonoscopy Family History Mother Breast cancer, Onset Age: 41 Heart attack Father Stroke HTN (hypertension) Maternal Grandmother Breast cancer, Onset Age: 55 Social History Household Members: None Housing: House Alcohol intake: never Patient Tobacco Use Status: Never used Tobacco Female Reproductive History Menstrual Age of Menarche: 12 Physical Exam Vital Signs: Last Vital Signs Pulse 62 08/01/24 09:39 Resp 16 08/01/24 09:39 BMI result Body Mass Index 19.1 Const Other: Exam deferred Assessment & Plan Assessment & Plan (1) Abnormal mammogram of left breast: Code(s): R92.8 - Other abnormal and inconclusive findings on diagnostic imaging of breast Category: Medical (2) Abnormal ultrasound of breast: Code(s): R92.8 - Other abnormal and inconclusive findings on diagnostic imaging of breast Category: Medical Plan 69-year-old female patient returning 1 week following ultrasound-guided core biopsy. She tolerated the procedure well and her biopsy results were benign. She should continue with the routine annual mammograms follow-up as needed. Coding Level of Care Code Est Pt Level 3 (94250) Diagnoses Abnormal mammogram of left breast R92.8 Abnormal ultrasound of breast R92.8
[2024-08-01 09:39] VITALS: PULSE 62; RESP 16; BMI 19.1
--- OUTSIDE RECORDS SUMMARY | 2024-08-01 09:58 | XMS_ITS | Patient Health Record ---
Author Organization [facility] Address [address] [place] [address] Care Team Providers Care Automatic Pattern Edger Name Role Phone Bishop Hansen MD Primary Care Provider Charli Jackson [phone] ALLERGIES Allergen (clinical drug ingredient) Drug/Non Drug Allergy documented on EMR Reaction Allergy Type Onset Date Status meperidine Demerol Unknown Drug Allergy Active RESULTS Component Value Reference Range Notes Amylase Reviewed date:12/18/2023 11:58:21 PM Interpretation: Performing Lab:[facility], [address] [place] [phone] Notes/Report: Amylase 71 28-100 U/L Lipase Reviewed date:12/18/2023 11:58:13 PM Interpretation: Performing Lab:[facility], [address] [place] [phone] Notes/Report: Lipase 35 8-78 U/L US abdomen complete Reviewed date:12/19/2023 05:23:43 PM Interpretation: Performing Lab: Notes/Report: [facility] [address] [place] [address] [place] [address] Ultrasound Report Signed Patient: Socorro Salazar MR#: [id number] : 1955 Acct:[id number] Age/Sex: 68 / F ADM Date: 12/19/23 Loc: HO.HMGCX Attending Dr: Charli Hart MD Ordering Physician: Charli Hart MD Date of Service: 12/19/23 Procedure(s): US abdomen complete Accession Number(s): [id number] cc: Bishop Hansen MD; Charli Hart MD EXAMINATION: US ABDOMEN COMPLETE CLINICAL INFORMATION: History of abnormal CT imaging exam. Epigastric abdominal pain. COMPARISON: None available. TECHNIQUE: Real-time imaging of the abdominal viscera. FINDINGS: PANCREAS: Normal. ABDOMINAL AORTA: The proximal, mid, and distal segments are normal in caliber. INFERIOR VENA CAVA: Visualized portions are normal. LIVER: Liver has normal size, contour and parenchymal echotexture. No evidence of focal lesion or intrahepatic ductal dilatation. GALLBLADDER: The gallbladder is physiologically distended without evidence of stones, sludge, wall thickening or pericholecystic fluid. 0.3 cm gallbladder polyp is noted. No imaging follow-up is recommended for a polyp of this size. COMMON BILE DUCT: Normal in caliber measuring 0.6 cm in diameter. KIDNEYS: The kidneys have normal size, cortical thickness and echotexture. No renal mass, nephrolithiasis or hydronephrosis. The right kidney is 11.9 cm and left kidney 11.5 cm in length. SPLEEN: Normal. The spleen measures 10.2 cm in maximum dimension. FREE FLUID: None. US/US abdomen complete IMPRESSION: * No acute sonographic abnormalities in the visualized abdomen. No evidence of cholelithiasis, cholecystitis or biliary tract obstruction. * Incidentally noted is a 0.3 cm gallbladder polyp. Dictated By: Gregor Man MD Signed By: <Electronically signed by Gregor Man MD in OV> 12/19/23 1144 DD/ 1101 TD/TT: Outreach Associate: PD Complete Blood Count Auto Di ff Reviewed date:12/18/2023 11:06:52 AM Interpretation: Performing Lab:[facility], [address] [place] [phone] Notes/Report: White Blood Count 4.5 4.8-10.8 X10*3/uL Red Blood Count 4.64 4.20-5.50 X10*6/uL Hemoglobin 14.7 12.0-16.0 g/dl Hematocrit 44.8 37.0-47.0 % Mean Corpuscular Volume 96.6 80.0-98.0 fL Mean Corpuscular Hemoglobin 31.7 27.0-33.0 pg Mean Corpuscular HGB Conc 32.8 31.0-35.0 g/dl Red Cell Distribution Width 12.6 11.0-16.0 % Platelet Count 216 160-400 X10*3/uL Mean Platelet Volume 10.6 9.4-12.3 fL Neutrophils Percent Auto 54.7 45-73 % Imm Gran Pct Auto 0.0 0.0-0.4 % Lymphocytes Percent Auto 23.1 20-40 % Monocytes Percent Auto 10.1 2-11 % Eosinophils Percent Auto 10.8 0-4 % Basophils Percent Auto 1.3 0-2 % NRBC Pct Auto 0.0 0.0-0.2 /100WBC Neutrophils Absolute Auto 2.5 2.0-8.3 x10*3/u L Imm Gran Abs Auto 0.00 0.00-0.03 X10*3/uL Lymphocytes Absolute Auto 1.1 1.2-4.9 X10*3/u L Monocytes Absolute Auto 0.5 0.1-1.2 X10*3/uL Eosinophils Absolute Auto 0.5 0.0-0.4 X10*3/u L Basophils Absolute Auto 0.1 0.0-0.2 X10*3/uL NRBC Abs Auto 0.000 0.0-0.012 X10*3/uL Erythrocyte Sedimentation Ra te Reviewed date:12/18/2023 11:57:43 PM Interpretation: Performing Lab:[address] [address] Notes/Report: Erythrocyte Sedimentation Rate 2 0-20 MM/HR Patients with polycythemia and many hemoglobin abnormalities may have depressed sed rates whereas patients with anemia may have elevated sed rates. Liver Panel Reviewed date:12/18/2023 11:57:52 PM Interpretation: Performing Lab:[address] [address] Notes/Report: Bilirubin Total 0.2 0.0-1.0 mg/dL Bilirubin Direct < 0.2 0.0-0.5 mg/dL Aspartate Amino Transferase 17 5-31 U/L Alanine Aminotransferase 15 0-31 U/L Total Protein 7.2 6.5-8.0 g/dL Albumin Level 4.4 3.5-5.0 g/dL Alkaline Phosphatase 99 39-117 U/L C Reactive Protein Reviewed date:12/18/2023 11:58:02 PM Interpretation: Performing Lab:[facility], [address] [place] [phone] Notes/Report: C Reactive Protein < 0.04 < or = 0.50 mg/dL Immunoglobulin A Reviewed date:12/27/2023 08:59:18 AM Interpretation: Performing Lab:[facility], [address] [place] [phone] Notes/Report: Immunoglobulin A 94 70-320 mg/dL THIS TEST WAS PERFORMED AT: [facility] [address] [place] [phone] ALYSIA GIBBONS MD Transglutaminase Ab IgG Reviewed date:12/27/2023 08:59:24 AM Interpretation: Performing Lab:[facility], [address] [place] [phone] Notes/Report: Transglutaminase Ab IgG <1.0 Value Interpretation ----- <15.0 Antibody not detected > or = 15.0 Antibody detected THIS TEST WAS PERFORMED AT: [facility] [address] [place] [phone] ALYSIA GIBBONS MD Transglutaminase IgA Reviewed date:12/27/2023 08:59:30 AM Interpretation: Performing Lab:[facility], [address] [place] [phone] Notes/Report: Transglutaminase IgA <1.0 Value Interpretation ----- <15.0 Antibody not detected > or = 15.0 Antibody detected THIS TEST WAS PERFORMED AT: [facility] [address] [place] [phone] ALYSIA GIBBONS MD Gliadin Ab Panel Reviewed date:12/27/2023 08:59:36 AM Interpretation: Performing Lab:[facility], [address] [place] [phone] Notes/Report: Gliadin Deamidated IgA Ab <1.0 Value Interpretation ----- <15.0 Antibody not detected > or = 15.0 Antibody detected Gliadin Deamidated IgG Ab <1.0 Value Interpretation ----- <15.0 Antibody not detected > or = 15.0 Antibody detected THIS TEST WAS PERFORMED AT: [facility] [address] [place] [phone] ALYSIA GIBBONS MD Endomysial IgA rflx Titer Reviewed date:12/27/2023 08:59:42 AM Interpretation: Performing Lab:[facility], [address] [place] [phone] Notes/Report: Endomysial IgA Antibody Negative Negative THIS TEST WAS PERFORMED AT: [facility] [phone] LOI SAMAYOA MD,PHD Endomysial Titer TNP Pathology Reviewed date:01/05/2024 04:36:49 PM Interpretation: Performing Lab:[facility], [address] [place] [phone] Notes/Report: REASON FOR REFERRAL No Information MEDICATIONS Medication SIG (Take, Route, Frequency, Duration) Notes Start Date End Date Status Magnesium 250 MG 2 tablet with a meal Orally Once a day Active Flax Seed Oil 1000 MG as directed Orally Active Stool Softener 250 MG 1 capsule as neede d Orally twice a day Active Calcium 600 + D 600-200 MG-UNIT Orally Active Tylenol Active Senna Active Claritin 10 MG 1 tablet Orally Once a day Active CoQ10 100 MG as directed Orally o nce a day Active Metamucil 0.52 GM 2 capsules with 8 ou nces of liquid Orally QAM Active Ibuprofen 200 MG 1 tablet as needed O rally prn Active Multi Vitamin/Minerals Orally Active Omeprazole 20 MG Oral for 90 A ctive Gabapentin 100 MG Oral for 90 Active IMMUNIZATIONS Vaccine Route Administration Date Status Comme nts Influenza Unknown 04/23/2024 Refused SOCIAL HISTORY Sex Assigned At : Social History Observation Description Sex Assigned At Unknown PROBLEMS Problem Type ICD Code Onset Dates Problem Status W/U Status Risk SNOMED Code Notes Problem Colon cancer screening (Z12.11) Active confirmed Colon cancer screening (111957209) Problem Gastro-esophage al reflux disease without esophagitis (K21.9) Active confirmed Gastro-esophage al reflux disease without esophagitis (546344443) Problem Abdominal pain, epigastric (R10.13) Active confirmed Epigastric pain (76355074) Problem Gastric polyps (K31.7) Active confirmed Benign neoplasm of stomach (29642582) Problem Abnormal CT scan, small bowel (R93.3) Active confirmed Imaging of gastrointestinal tract abnormal (934125816) Problem Chronic GERD (K21.9) Active confirmed Gastroesophagea l reflux disease (908196681) VITAL SIGNS Temperature 96.9 degrees Fahrenheit 04/23/2024 Blood pressure diastolic 00 mm Hg 04/23/2024 Height 66.5 in 04/23/2024 Blood pressure systolic 000 mm Hg 04/23/2024 Weight 115 lb 6 oz lbs 04/23/2024 BMI 18.34 kg/m2 04/23/2024 Encounters Encounter Location Date Provider Diagnosis 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 ; Abn findings-GI tract R93.3 ; Gastro-esophageal reflux disease without esophagitis K21.9 ; Gastric polyps K31.7 and Weight loss R63.4 [facility] [address] [place] [phone] 12/18/2023 Charli Hart Abdominal pain, epigastric R10.13 ; Abnormal CT scan, small bowel R93.3 and Chronic GERD K21.9 [facility] [address] [place] [phone] 04/23/[address] scan, small bowel R93.3 ; Chronic GERD K21.9 and Colon cancer screening Z12.11 [facility] [address] [place] [phone] 12/06/2023 Charli Hart [facility] [address] [place] [phone] 12/19/2023 Charli Hart [facility] [address] [place] [phone] 01/05/2024 Charli Hart ASSESSMENTS Encounter Date Diagnosis Assessment Notes Treatment Notes Treatment Clinical Notes 12/20/2023 Abn findings-GI tract (ICD-10 - R93.3) 12/20/2023 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 PLAN OF TREATMENT Pending Test Test Name Order Date LIVER PROFILE 12/18/2023 CRP 12/18/2023 CBC w DIFF 12/18/2023 SED RATE (ESR) 12/18/2023 CELIAC PANEL #10 12/18/2023 Future Test Test Name Order Date COLONOSCOPY 11/17/2014 UPPER GI ENDOSCOPY 12/18/2023 COLONOSCOPY 04/23/2024 Next Appt Details Provider Name:Charli Duarte Hailey , 10/24/2024 10:00:00 AM, [address] [place] [address] , [place], [place], [phone], Insurance Providers Payer Name Payer Address Payer Phone Subscriber Number Group Number Insured Name Patient Relationship to Insured Coverage Start Date Coverage End Date MEDICARE OF [place] [address] [place] [address] [id number] [place], [place] Self - patient is the insured [employer] ([facility] [address] [place] [address] [id number] [place] N, [place] Self - patient is the insured MEDICAL (GENERAL) HISTORY Medical History History ICD Code History of tubular adenomas removed in 1995--neg. colonoscopies in 2003 and 2009 Denies RI,DM,CVA,Lung disease,renal dise ase Seasonal allergies GERD Negative colonoscopy 02/2015 Upper endoscopy in December using a colonoscope to evaluate the proximal small intestine was unremarkable. Biopsies from the small bowel were normal. There was no evidence of any esophagitis, gastritis, inflammatory bowel disease, celiac disease, or peptic ulcer disease. An abdominal ultrasound was negative as well in regard to abdominal discomfort at that time. Surgical History Surgery Date(Month/Year) Benign breast lump
--- OUTSIDE RECORDS SUMMARY | 2024-08-01 09:58 | XMS_ITS ---
Author Organization [facility] Address [address] [place] [address] Care Team Providers Care Agricultural Service Worker Name Role Phone Bishop Hansen MD Primary Care Provider Charli Jackson [phone] ALLERGIES Allergen (clinical drug ingredient) Drug/Non Drug Allergy documented on EMR Reaction Allergy Type Onset Date Status meperidine Demerol Unknown Drug Allergy Active REASON FOR VISIT Patient presents today for ABN CT SCAN OF GI TRACT MEDICATIONS Medication SIG (Take, Route, Frequency, Duration) Notes Start Date End Date Status Claritin 10 MG 1 tablet Orally Once a day Active Metamucil 0.52 GM 2 capsules with 8 ou nces of liquid Orally QAM Active Magnesium 250 MG 2 tablet with a meal Orally Once a day Active Stool Softener 250 MG 1 capsule as neede d Orally twice a day Active Calcium 600 + D 600-200 MG-UNIT Orally Active Senna Active Ibuprofen 200 MG 1 tablet as needed O rally prn Active Multi Vitamin/Minerals Orally Active Omeprazole 20 MG Oral for 90 A ctive Gabapentin 100 MG Oral for 90 Active Tylenol Active CoQ10 100 MG as directed Orally o nce a day Active Flax Seed Oil 1000 MG as directed Orally Active IMMUNIZATIONS Vaccine Route Administration Date Status Comme nts Influenza Unknown 04/23/2024 Refused PROBLEMS Problem Type ICD Code Onset Dates Problem Status W/U Status Risk SNOMED Code Notes Problem Colon cancer screening (Z12.11) Active confirmed Colon cancer screening (680022777) VITAL SIGNS BMI 18.34 kg/m2 04/23/2024 Blood pressure systolic 000 mm Hg 04/23/20 24 Blood pressure diastolic 00 mm Hg 024 Height 66.5 in 04/23/2024 Temperature 96.9 degrees Fahrenheit 04/23/20 24 Weight 115 lb 6 oz lbs 04/23/2024 Encounters Encounter Location Date Provider Diagnosis [facility] [address] [place] [address] 04/23/[address] scan, small bowel R93.3 ; Chronic GERD K21.9 and Colon cancer screening Z12.11 ASSESSMENTS Encounter Date Diagnosis Assessment Notes Treatment Notes Treatment Clinical Notes 04/23/[address] scan, small bowel (ICD-10 - R93.3) 04/23/2024 Chronic GERD (ICD-10 - K21.9) 04/23/2024 Colon cancer screening (ICD-10 - Z12.11) PLAN OF TREATMENT Future Test Test Name Order Date COLONOSCOPY 04/23/2024 Next Appt Details Follow Up: prn, Reason: Provider Name:Charli Hart , 10/24/2024 10:00:00 AM, [address] [place] [address] , [place], [place], [phone], Progress Notes * Examination Category Sub-Category Detail Notes General Examination GENERAL APPEARANCE: pleasant , well nourished, well developed, in no acute distress EYES: sclera non-icteric NECK/THYROID: no cervical lymphade nopathy, neck supple HEART: S1, S2 normal LUNGS: clear to auscultatio n bilaterally ABDOMEN: normal bowel sounds, no guarding or rigidity, no hepatosplenomegaly, no masses palpable, soft, nontender, nondistended. NEUROLOGIC: alert and oriented SKIN: nonjaundiced, no spi nalini angiomata. EXTREMITIES: no edema ORAL CAVITY: mucosa moist
--- OUTSIDE RECORDS SUMMARY | 2024-08-01 09:58 | XMS_ITS ---
Author Organization [facility] Address [address] [place] [address] Care Team Providers Care Prestidigitator Name Role Phone Bishop Hansen MD Primary Care Provider Charli Jackson [phone] Encounters Encounter Location Date Provider Diagnosis [facility] [address] [facility] [address] [place] [phone] 01/05/2024 Charli Hart PLAN OF TREATMENT Next Appt Details Provider Name:Charli Hart , 10/24/2024 10:00:00 AM, [address] [place] [address] , [place], [place], [phone],
--- OUTSIDE RECORDS SUMMARY | 2024-08-01 09:58 | XMS_ITS ---
Author Organization [facility] Address [address] [place] [address] Care Team Providers Care Neurology Hospitalist Name Role Phone Bishop Hansen MD Primary Care Provider Charli Jackson [phone] REASON FOR VISIT epigastric pain,abn ct scan sm bwl PROBLEMS Problem Type ICD Code Onset Dates Problem Status W/U Status Risk SNOMED Code Notes Problem Gastro-esophagea l reflux disease without esophagitis (K21.9) Active confirmed Gastro-esophage al reflux disease without esophagitis (524091164) Problem Gastric polyps (K31.7) Active confirmed Benign neoplasm of stomach (16050489) Encounters Encounter Location Date Provider Diagnosis [facility] Outpatient [address] [place], [place] [phone] 12/20/2023 Charli Hart 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 ; Abn findings-GI tract R93.3 ; Gastro-esophageal reflux disease without esophagitis K21.9 ; Gastric polyps K31.7 and Weight loss R63.4 ASSESSMENTS Encounter Date Diagnosis Assessment Notes Treatment Notes Treatment Clinical Notes 12/20/2023 Other specified functional intestinal disorders (ICD-10 - K59.89) 12/20/2023 Abn findings-GI tract (ICD-10 - R93.3) 12/20/2023 Gastro-esophageal reflux disease without esophagitis (ICD-10 - K21.9) 12/20/2023 Gastric polyps (ICD-10 - K31.7) 12/20/2023 Weight loss (ICD-10 - R63.4) PLAN OF TREATMENT Next Appt Details Provider Name:Charli Hart , 10/24/2024 10:00:00 AM, [address] [place] [address], [phone],
--- OUTSIDE RECORDS SUMMARY | 2024-08-01 09:59 | XMS_ITS | Patient Health Record ---
Author Organization [facility] Address [address] [place] [address] Care Team Providers Care Benzene Operator Name Role Phone Bishop Hansen MD Primary Care Provider Magen Arrington Unavailable [phone] Allergies Allergen (clinical drug ingredient) Drug/Non Drug [...] Problem Status W/U Status Risk Notes Problem [id number] Raynaud's diseas e without gangrene (I73.00) Active [...] [employer] [address] [place] [address] [id number] [place], [place] Self - patient is the insured [facility] ([facility]) [address] [place] [address] [id number] [place] n, [place] Self - patient is the insured Medical (General) History Medical History History ICD Code Back,Hip,and Knee pain Broken bones Headaches/Eye Migraines Chicken pox Arthritis Surgical History Surgery Date(Month/Year) tonsillectomy 1967 breast mass removal 03/1991
== END 2024-08-01 09:56 | disposition home or self-care (01) ==
PROVIDERS: PCP Internal Medicine; Visit Provider Surgery
DX: R92.8 Other abnormal and inconclusive findings on diagnostic imaging of breast (principal)
CPT/HCPCS: 99213

== ENCOUNTER → 2024-08-01 09:26 | Outpatient (BNVA) | payer MEDICARE, OTHER, SELFPAY | PROVIDERS: PCP Internal Medicine; Visit Provider Surgery | DX: R92.8 Other abnormal and inconclusive findings on diagnostic imaging of breast (principal) | CPT/HCPCS: 99212 ==

== ENCOUNTER 2024-10-08 15:04 | Outpatient (AMB) | payer MEDICARE, OTHER, SELFPAY ==
[2024-10-08 15:19] VITALS: BP 122/74; PULSE 74; TEMP 36.4; O2SAT 99; BMI 19.0
--- NOTE | 2024-10-08 15:19 | MHC.PC.OV ---
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 Required: No Accompanied by: Self / Same As Patient Allergies No Known Allergies Allergy (Verified 10/08/24 15:19) Tobacco use date assessed: 10/08/24 Fall risk assessment: No Falls in past year Last assessed Fall Risk: 10/08/24 Dental Screening Dental Screen Date: 10/08/24 Did you have a dental visit in the last 12 months?: Yes Did you have a dental problem in the last 6 months where you did not have access to dental care?: No HPI HPI Comments History of Present Illness Details History of Present Illness The patient is a 69-year-old female presenting with symptoms indicative of a viral upper respiratory infection that started four days prior to the visit. She describes a mild fever with a peak temperature of 99.9?F, nasal congestion with yellow discharge, and severe, throbbing pain localized on the left side of her face, accompanied by a blocked sensation in her ear. There is no presence of respiratory involvement like cough or shortness of breath. Despite using Tylenol and saline nasal spray, she reports minimal symptom relief. The patient has an extensive medical history that includes scoliosis and kyphosis, both managed with gabapentin and ibuprofen. These conditions impose limitations on her daily physical activity. She ceased regular walking exercises due to foot discomfort being addressed by her biochemist. She manages constipation and restless legs syndrome with magnesium supplements, additionally controlling acid reflux symptoms with omeprazole. Her preventive health care includes regular screenings for breast cancer due to her family history, with a recent mammogram involving benign biopsy results. Upcoming care comprises a colonoscopy scheduled for October. For sinus issues, she regularly takes Claritin and uses Flexi for dry eye management. Review of Systems - General: Denies fever greater than 100.4?F. - ENT: Reports nasal congestion with yellow discharge, left-sided facial pain and pressure, hearing muffled in ear; denies sore throat (currently), denies ear pain. - Respiratory: Denies cough, chest congestion, dyspnea, or wheezing. - Gastrointestinal: Denies heartburn or gastroesophageal reflux symptoms. - Musculoskeletal: Reports kyphosis, scoliosis; limited physical activity (historically). - Neurologic: Reports restless legs syndrome. - Family History: Positive for breast cancer. Vital Signs - Temperature: Self-reported maximum of 99.9?F - No other vital signs were reported or documented in this conversation. Health Maintenance - Colonoscopy scheduled in October with Dr. Hart - Recent mammogram with benign findings, assessed by Dr. Baca - Bone density evaluation completed in the past year - Routine sinus medication with Claritin Physical Exam Constitutional: Awake and alert, no apparent distress Heart: RRR, S1S2, no murmurs, no edema Lungs: CTA bilaterally, no wheezing Extremities: No calf tenderness Skin: Warm and dry Neuro: Alert and oriented x 3 Assessment and Plan 1. Viral Upper Respiratory Infection Current management consists of increased nasal irrigation and supportive care due to viral etiology, avoiding unnecessary antimicrobials. Monitor for potential bacterial progression if no resolution by 10 days post- onset. 2. Scoliosis Ongoing management incorporates gabapentin to ameliorate pain, maintaining current supportive regimen and activity as suitable. 3. Kyphosis Given pain management through gabapentin, the plan involves continuation of supportive routines tailored to pain-free allowances and lifestyle. 4. Constipation Current effectiveness of magnesium supplementation for symptom control in constipation and musculature is noted, with ongoing adherence to established regimen. 5. Acid Reflux Management with omeprazole provides effective reflux symptom control, warranting continuation of this approach with ongoing surveillance for symptom change. [facility] Medical History Benign breast lumps GERD (gastroesophageal reflux disease) Tubular adenoma Kyphosis Surgical History History of lumpectomy of right breast Hx of colonoscopy Family History (Updated 10/08/24 @ 15:33 by Anjelica Alfonso MA) Mother Breast cancer, Onset Age: 41 Heart attack Father Stroke HTN (hypertension) Maternal Grandmother Breast cancer, Onset Age: 55 Social History Household Members: None Housing: House Alcohol intake: never Patient Tobacco Use Status: Never used Tobacco e-Cigarette/Vaping Use: Never Used service: No Current occupational status: retired Cognitive needs: No Hearing needs: No Vision needs: Yes (rx glasses) Female Reproductive History Menstrual Age of Menarche: 12 Questionnaire PHQ-9 Over the last 2 weeks, how often have you been bothered by any of the following problems? 1. Little interest or pleasure in doing things: not at all 2. Feeling down, depressed, or hopeless: not at all 3. Trouble falling or staying asleep, or sleeping too much: not at all 4. Feeling tired or having little energy: not at all 5. Poor appetite or overeating: not at all 6. Feeling bad about yourself - or that you are a failure or have let yourself or your family down: not at all 7. Trouble concentrating on things, such as reading the newspaper or watching television: not at all 8. Moving or speaking so slowly that other people could have noticed. Or the opposite - being so fidgety or restless that you have been moving around a lot more than usual: not at all 9. Thoughts that you would be better off or of hurting yourself in some way: not at all Total score: 0 Source: Developed by Drs. Charli Richards, Dodie Kimbrough, Houston Delgadillo and colleagues, with an educational adin from [employer] (app). Thrive Questionnaire Date Thrive assessed: 10/08/24 I am a: Patient Within the past 12 months, did the food you bought not last and you didn't have the money to get more?: Never true Within the past 12 months, did you worry whether your food would run out before you got money to buy more?: Never true Do you have trouble paying for medicines?: No Do you have trouble getting transportation to medical appointments?: No Do you have trouble paying your heating and electricity bill?: No Do you have trouble taking care of your child, family member or friend?: No Do you have trouble with day-to-day activities such as bathing, preparing meals, shopping, managing finances, etc.?: No Are you currently unemployed and looking for a job?: No Are you interested in more education?: No THRIVE Score: 0 AUDIT C Alcohol Use Questionnaire (AUDIT-C) 1. How often do you have a drink containing alcohol?: Never 3. How often do you have six or more drinks on one occasion?: Never Total Score: 0 KELLE-7 AMB Questionnaire KELLE-7 Date KELLE - 7 assessed: 10/08/24 Feeling nervous, anxious, or on edge: 0 = Not at all Not being able to stop or control worryin = Not at all Worrying too much about different things: 0 = Not at all Trouble relaxin = Not at all Being so restless that it is hard to sit still: 0 = Not at all Becoming easily annoyed or irritable: 0 = Not at all Feeling afraid as if something awful might happen: 0 = Not at all Total KELLE-7 score (0-4 normal; 5-9 mild; 10-14 moderate; 15-21 severe): 0 Source: Developed by Drs. Charli Richards, Dodie Kimbrough, Houston Delgadillo and colleagues, with an educational adin from [employer] (app). Physical exam (Primary Care) Vital Signs: Last Vital Signs Temp 97.5 F 10/08/24 15:19 Pulse 74 10/08/24 15:19 BP 122/74 10/08/24 15:19 Pulse Ox 99 10/08/24 15:19 Oxygen Delivery Method Room Air 10/08/24 15:19 BMI result Body Mass Index 19.0 Tobacco/Smoking Status: Tobacco use Status Tobacco use date assessed 10/08/24 10/08/24 15:21 Patient Tobacco Use Status Never used Tobacco 10/08/24 15:21 e-Cigarette/Vaping Use Never Used 10/08/24 15:21 PHQ-9: PHQ-9 Score PHQ-9: Total score 0 10/08/24 15:52 Thrive Assessment: Date of Thrive Assessment Date Thrive assessed 10/08/24 10/08/24 15:21 Coding Level of Care Code New Pt Level 4 (97286) Complex EM visit Add On G2211 Diagnoses Sinusitis J32.9 Kyphosis M40.209 GERD (gastroesophageal reflux disease) K21.9 Assessment & Plan Assessment & Plan (1) Sinusitis: Code(s): J32.9 - Chronic sinusitis, unspecified Category: Medical Plan: Likely viral in nature. Conservative measures reviewed. Contact the office in 10 days if no improvements (2) Kyphosis: Code(s): M40.209 - Unspecified kyphosis, site unspecified Plan: Chronic but stable. Continue gabapentin, ibuprofen, acetaminophen (3) GERD (gastroesophageal reflux disease): Code(s): K21.9 - Gastro-esophageal reflux disease without esophagitis Plan: Stable. Continue with dietary accommodations and continue omeprazole Plan Screening labs ordered. Follow-up in 6 months for Medicare wellness visit
--- OUTSIDE RECORDS SUMMARY | 2024-10-08 16:09 | XMS_ITS ---
Author Organization [facility] Address [address] [place] [address] Care Team Providers Care Cooker Syrup Name Role Phone Bishop Hansen MD Primary Care Provider Yasir Asher Unavailable [phone] REASON FOR VISIT open toed shoe Encounters Encounter Location Date Provider Diagnosis [facility] [address] [place] [address] 08/22/2024 Yasir Loaiza Plan Of Treatment No Information Progress Notes * [place] SALAZAR ADOB: (69 yo F)Acc No.[id number]:08/22/2024 Patient:?Reinaldo SALAZAR :1955???Age:69 Y???Sex:Female Address:[address] [place] [address], [address] * true * Date:? Generated for Printi keegan/Helena/eTransmitting on:?10/08/2024 04:09 PM EDT
--- OUTSIDE RECORDS SUMMARY | 2024-10-08 16:09 | XMS_ITS | Patient Health Record ---
[facility] [place] Address [address] [place] [address] Care Team Providers Care Software Engineer Name Role Phone Bishop Hansen MD Primary Care Provider Yasir Asher Unavailable [phone] Black, Tiesha Unavailable [phone] Magen Morrison Unavailable [phone] Allergies Allergen (clinical drug ingredient) Drug/Non Drug Allergy documented on EMR Reaction Allergy Type Onset Date Status Codeine Phosphate dizzy Drug Allergy Active meperidine Demerol nausea Drug Allergy Active Cortisone leg cramps Drug Allergy Active Adhesive rash Allergy Active Results Component Value Reference Range Notes X ray : Foot, right 3V Reviewed date:09/04/2024 03:36:46 PM Interpretation:See Examination above Performing Lab: Notes/Report: See Examination above Reason For Referral No Information Medications Medication SIG (Take, Route, Frequency, Duration) Notes Start Date End Date Status Ibuprofen Active Claritin Active Doxycycline Hyclate 100 MG 1 capsule Orally Once a day for 10 day(s) 8 days Not-Taking CoQ10 100 MG as directed Orally Active Meloxicam 15 MG 1 tablet Orally Once a day for 30 day(s) Not-Taking Flaxseed Oil 1000 MG as directed Orally Active Ranitidine Not-Takin g Gabapentin Active Loratadine 10 MG 1 tablet Orally Once a day for 30 day(s) Not-Taking Stool Softener 100 MG 1 capsule as neede d Orally Once a day for 30 day(s) Active Tylenol Active Calcium + D3 600-200 MG-UNIT 1 tablet with a meal Orally Once a day for 30 day(s) Active Doxycycline Hyclate 100 MG 1 capsule Orally Twice a day for 7 days Active Centrum Silver Activ e Cephalexin 500 MG 1 capsule Orally twi ce a day for 10 days 08/21/2024 Active Zolpidem Tartrate 5 MG 1/2 tablet at bed time Orally prn Not-Taking Magnesium 250 MG 2 tablet with a meal Orally Once a day Active Night Splint AFO - L1930 as directed 08/07/2018 Not-Taking Omeprazole Active Immunizations Vaccine Route Administration Date Status Comme nts COVID-19 Nikhil & Nikhil/Lamine Unknown 09/06/2022 R efused Social History Tobacco Use: Social History Observation Description Date Details (start date - stop date) Never Smoker NA - NA Tobacco use other than smoking: Question Answer Notes Are you an other tobacco user? No Tobacco Control (Standard) Question Answer Notes Tobacco use: Nonsmoker Additional Findings: Tobacco non-user Current no nsmoker AUDIT-C (Standard) Question Answer Notes Did you have a drink containing alcohol in the p ast year? No Points 0 Interpretation Negative Problems Problem Type SNOMED Code ICD Code Onset Dates Problem Status W/U Status Risk Notes Problem Acquired hammer toe of right foot (6237714222261 105) Hammer toe of right foot (M20.41) Active confirmed Problem Raynaud's disease (527254258) Raynaud's disease without gangrene (I73.00) Active confirmed Vital Signs Blood pressure diastolic 78 mm Hg 09/04/2024 Height 5ft6in in 09/04/2024 Blood pressure systolic 120 mm Hg 09/04/2024 Weight 115 lbs 09/04/2024 BMI 18.56 kg/m2 09/04/2024 Encounters Encounter Location Date Provider Diagnosis [facility] [address] [address] 08/05/2024 Yasir Josse Raynaud's disease without gangrene I73.00 ; Ingrowing nail L60.0 ; Pain in right toe(s) M79.674 and Cellulitis of toe of right foot L03.031 [facility] [address] 08/21/2024 Tiesha Black Raynaud's disease without gangrene I73.00 ; Cellulitis of toe of right foot L03.031 ; Ingrowing nail L60.0 and Pain in right toe(s) M79.674 [facility] [address] [place] [address] 09/04/2024 Tiesha Black Raynaud's disease without gangrene I73.00 ; Hammer toe of right foot M20.41 and Pain in right toe(s) M79.674 [facility] [address] [place] [address] 08/04/2024 Magen Morrison [facility] [address] 08/15/2024 [facility] [address] 08/22/2024 Yasir Loaiza Assessments Encounter Date Diagnosis (ICD Code) Assessment Notes Treatment Notes Treatment Clinical Notes Section Notes 08/05/2024 Ingrowing nail (ICD-10 - L60.0) 08/05/2024 Raynaud's disease without gangrene (ICD-10 - I73.00) 08/21/2024 Raynaud's disease without gangrene (ICD-10 - I73.00) 08/21/2024 Cellulitis of toe of right foot (ICD-10 - L03.031) 09/04/2024 Hammer toe of right foot (ICD-10 - M20.41) 09/04/2024 Raynaud's disease without gangrene (ICD-10 - I73.00) 09/04/2024 Pain in right toe(s) (ICD-10 - M79.674) 08/21/2024 Ingrowing nail (ICD-10 - L60.0) 08/05/2024 Pain in right toe(s) (ICD-10 - M79.674) 08/21/2024 Pain in right toe(s) (ICD-10 - M79.674) 08/05/2024 Cellulitis of toe of right foot (ICD-10 - L03.031) Plan Of Treatment Pending Test Test Name Order Date X ray : Foot, right 3V 08/07/2018 X ray : Foot, right 3V 09/30/2018 Insurance Providers Payer Name Payer Address Payer Phone Subscriber Number Group Number Insured Name Patient Relationship to Insured Coverage Start Date Coverage End Date Medicare National [employer] [address] [place] [address] [id number] Abundiomustapha lewSocorro Self - patient is the insured [employer] [facility] [address] [place] [address] [phone] [id number] [place], [place] Self - patient is the insured Medical (General) History Medical History History ICD Code Back,Hip,and Knee pain Broken bones Headaches/Eye Migraines Chicken pox Arthritis Surgical History Surgery Date(Month/Year) tonsillectomy 1967 breast mass removal 03/1991
--- OUTSIDE RECORDS SUMMARY | 2024-10-08 16:09 | XMS_ITS ---
Author Organization [facility] roger Ralph Address [address] [place] [address] Care Team Providers Care Mechanic Driver Name Role Phone Bishop Hansen MD Primary Care Provider Yasir Asher Unavailable [phone] Black, Tiesha Unavailable [phone] Allergies Allergen (clinical drug ingredient) Drug/Non Drug Allergy documented on EMR Reaction Allergy Type Onset Date Status Codeine Phosphate dizzy Drug Allergy Active meperidine Demerol nausea Drug Allergy Active Cortisone leg cramps Drug Allergy Active Adhesive rash Allergy Active REASON FOR VISIT Pcp-04/03, skin problem Medications Medication SIG (Take, Route, Frequency, Duration) Notes Start Date End Date Status Zolpidem Tartrate 5 MG 1/2 tablet at bed time Orally prn Not-Taking Night Splint AFO - L1930 as directed 08/07/2018 Not-Taking Doxycycline Hyclate 100 MG 1 capsule Orally Twice a day for 7 days Active Loratadine 10 MG 1 tablet Orally Once a day for 30 day(s) Not-Taking Ranitidine Not-Takin g Tylenol Active Meloxicam 15 MG 1 tablet Orally Once a day for 30 day(s) Not-Taking Magnesium 250 MG 2 tablet with a meal Orally Once a day Active Stool Softener 100 MG 1 capsule as neede d Orally Once a day for 30 day(s) Active Omeprazole Active Ibuprofen Active Gabapentin Active Flaxseed Oil 1000 MG as directed Orally Active Doxycycline Hyclate 100 MG 1 capsule Orally Once a day for 10 day(s) 8 days Not-Taking CoQ10 100 MG as directed Orally Active Claritin Active Centrum Silver Activ e Cephalexin 500 MG 1 capsule Orally twi ce a day for 10 days 08/21/2024 Active Calcium + D3 600-200 MG-UNIT 1 tablet with a meal Orally Once a day for 30 day(s) Active Social History Tobacco Use: Social History Observation Description Date Details (start date - stop date) Never Smoker NA - NA Tobacco use other than smoking: Question Answer Notes Are you an other tobacco user? No Tobacco Control (Standard) Question Answer Notes Tobacco use: Nonsmoker Additional Findings: Tobacco non-user Current no nsmoker Vital Signs Height 5ft6in in 08/21/2024 Weight 115 lbs 08/21/2024 BMI 18.56 kg/m2 08/21/2024 Blood pressure systolic 122 mm Hg 08/22/19 25 Blood pressure diastolic 78 mm Hg 025 Encounters Encounter Location Date Provider Diagnosis [facility] [place] [address] [place] [address] 08/21/2024 Tiesha Mary Raynaud's disease without gangrene I73.00 ; Cellulitis of toe of right foot L03.031 ; Ingrowing nail L60.0 and Pain in right toe(s) M79.674 Assessments Encounter Date Diagnosis (ICD Code) Assessment Notes Treatment Notes Treatment Clinical Notes Section Notes 08/21/2024 Raynaud's disease without gangrene (ICD-10 - I73.00) 08/21/2024 Cellulitis of toe of right foot (ICD-10 - L03.031) 08/21/2024 Ingrowing nail (ICD-10 - L60.0) 08/21/2024 Pain in right toe(s) (ICD-10 - M79.674) Plan Of Treatment Medication Medication Name Sig Start Date Stop Date Notes Cephalexin 500 MG 1 capsule Orally twice a day for 10 days 08/21/2024 Progress Notes * Socorro SALAZAR ADOB: (69 yo F)Acc No.[id number]:08/21/2024 Progress Notes Patient:Reinaldo MURILLO Provider:?Tiesha Mary DPM :1955???Age:69 Y???Sex:Female D ate:08/21/2024 Address:[address] [place] [address] [id number] Pcp:Bishop Hansen MD Subjective: * Chief Complaints: * ???Pcp-04/03Alyce problem * HPI: ???Skin problems:?Location:?Tip, Right , 1st, Toe(s).?Duration:?several weeks.?Onset/Cause:?unknown, denies injury, cold temperature.?Course:?worsened, unchanged.?Aggravated by:?any pressure.?Treatments:?soaks, medication ( doxycycline hyclate 100 mg x 7 days).?Severity/Quality:?moderate.? * ROS:?General/Constitutional:?Nausea?denies.?Vomiting?denies.?Hunger Thirst?denies.?Loss appetite?denies.?Chills?denies.?Fatigue?denies.?Fever?denies.?Night Sweats?denies.?Unexplained weight loss?denies.?Unexplained weight gain?denies.?HEENTM:?Dentures?denies.?Dizziness?denies.?Glasses/contacts?admits.?Retinopathy?de nies.?Blurred/double vision?denies.?TMJ?denies.?Discharge/drainage?denies.?Implants?denies.?Sore throat?denies.?Dental implants?denies.?Hard of hearing ?denies.?Difficulty chewing/swallowing/speaking?denies.?Nose bleeds?denies.?Sore mouth?denies.?Respiratory:?On Oxygen?denies.?Pneumonia/pleurisy?denies.?Bronchitis?denies.?Emphysema?denies.?C oughing?denies.?Cough blood?denies.?Shortness of breath?denies.?Wheezing?denies.?Cardiovascular:?Pacemaker?denies.?MVP?denies.?WPW?denies.?CHF?denies.?Heart attack?denies.?Septal defect?denies.?Rapid beat?denies.?Chest pain ?denies.?Atrial Fib.?denies.?Murmur/Palpitations?denies.?Gastrointestinal:?Hemorrhoids?denies.?Stomach/Abdominal pain?denies.?Dark blood stool?denies.?Irritable bowel ?denies.?Constipation?denies.?Diarrhea?denies.?Hematology:?Swelling?denies.?Clots?denies.?Varicose Veins?denies.?Bruising?denies.?Bleeding problem?denies.?Genitourinary:?Blood urine?denies.?Frequent/Painfu/urination/bladder control?denies.?Kidney stones?denies.?Infection (UTI)?denies.?Nephropathy?denies.?sex trans dis (STD)?denies.?Prostate?denies.?Musculoskeletal:?Hammertoes?denies.?Bunions?denies.?Back Pain?denies.?Muscle Cramps/ Resting?denies.?Muscle cramps / walking?denies.?Generalized aches and pains?admits.?Weakness?denies.?Integ.:?Stone?denies.?Scars?denies.?Corns/calluses?denies.?Ingrown nails?admits.?Painful nails?denies.?Open Sores?denies.?Rashes?denies.?Neurologic:?Difficulty sleeping?admits.?Brain disorder?denies.?Numbness?denies.?Balance trouble?denies.?Confusion?denies.?Fainting/blackouts?denies.?Tingling?denies.?Tr emors?denies.? * Medical History:? * Surgical History:?tonsillect sandhya 1967breast mass removal 03/1991 * Hospitalization/Major Diagno stic Procedure:?Denies Past Hospitalization * Family History:?Mother: dece ased, poor circulation, diagnosed with Other malignant neoplasm of unspecified site, Diabetic - NIDDM, Unspecified heart disease, Family history of arthritis.?Father: , diagnosed with Unspecified essential hypertension, Unspecified cerebral artery occlusion with cerebral infarction.? * Social History:?Tobacco Use:?Tobacco use other than smoking?Are you an other tobacco user??No ?Tobacco Control (Standard)?Tobacco use:?Nonsmoker ?Additional Findings: Tobacco non-user?Current nonsmoker ???Miscellaneous:?Caffeine: yes, Tea, 1 cup. ?Children: no, none. ?Exercise: yes, PT Left Leg. ?Marital status: . 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 * Medications:?TakingCalcium + D3 600-200 MG-UNIT Tablet 1 tablet with a meal Orally Once a day Centrum Silver Claritin CoQ10 100 MG Capsule as directed Orally Flaxseed Oil 1000 MG Capsule as directed Orally Gabapentin Ibuprofen Magnesium 250 MG Tablet 2 tablet with a meal Orally Once a day Omeprazole Stool Softener 100 MG Capsule 1 capsule as needed Orally Once a day Tylenol Doxycycline Hyclate 100 MG Capsule 1 capsule Orally Twice a day Taking Calcium + D3 600-200 MG-UNIT Tablet 1 tablet with a meal Orally Once a day Taking Centrum Silver Taking Claritin Taking CoQ10 100 MG Capsule as directed Orally Taking Flaxseed Oil 1000 MG Capsule as directed Orally Taking Gabapentin Taking Ibuprofen Taking Magnesium 250 MG Tablet 2 tablet with a meal Orally Once a day Taking Omeprazole Taking Stool Softener 100 MG Capsule 1 capsule as needed Orally Once a day Taking Tylenol Taking Doxycycline Hyclate 100 MG Capsule 1 capsule Orally Twice a day Not-Taking/PRNDoxycycline Hyclate 100 MG Capsule 1 capsule Orally Once a day , Notes to Pharmacist: 8 daysMeloxicam 15 MG Tablet 1 tablet Orally Once a day Ranitidine Loratadine 10 MG Tablet 1 tablet Orally Once a day Zolpidem Tartrate 5 MG Tablet 1/2 tablet at bedtime Orally prn Night Splint AFO - L1930 as directed Medication List reviewed and reconciled with the patientNot-Taking/PRN Doxycycline Hyclate 100 MG Capsule 1 capsule Orally Once a day , Notes to Pharmacist: 8 daysNot-Taking/PRN Meloxicam 15 MG Tablet 1 tablet Orally Once a day Not-Taking/PRN Ranitidine Not-Taking/PRN Loratadine 10 MG Tablet 1 tablet Orally Once a day Not-Taking/PRN Zolpidem Tartrate 5 MG Tablet 1/2 tablet at bedtime Orally prn Not-Taking/PRN Night Splint AFO - L1930 as directed Medication List reviewed and reconciled with the patient * Allergies:?Codeine Phosphate : dizzyDemerol: nauseaCortisone: leg crampsAdhesive: rashyes[Allergies Verified] Objective: * Vitals:?Ht: 5ft6in, Wt:115, BMI:18.56, Shoe size: 9.5, BP:122/78mm Hg, Ht-cm: 167.64 cm, Wt-k.16 kg. * Examination: ???General Examination: ?GENERAL APPEARANCE:?Reveals a pleasant, alert, well nourished, well- developed, well hydrated individual, who demonstrates proper attention to hygiene/body habitus, and is in no acute distress, Pt serves as own historian for office visit today.?ORIENTED:?person, place, and time.?Neurological: ?SENSORY:?Neurological exam reveals intact sensorium, pain sensation normal, vibration sensation intact, pinprick sensation is normal in the lower extremities, Pt denies, anesthesia, burning, paresthesia, tingling, B/L.?Vascular: ?DP PULSES (B):? 0/4, B/L.?PT PULSES (B):?2/4, B/L.?CAPILLARY FILL TIME:? delayed, all digits, B/L.?TROPHIC CONDITION-TEXTURE/ELASTICITY/TURGOR/HAIR GROWTH (B):? decreased,?with sparse to absent hair growth, B/L.?TEMPERTURE GRADIENT (C):? decreased, cool to cold, proximal to distal, B/L.?PIGMENTATION:?mottled, B/L.?EDEMA (C):?absent, B/L.?CLAUDICATION (C):?denies, B/L.?REST PAIN:?denies, B/L.?TELANGECTASIA:?absent, B/L.?Dermatologic: ?SKIN FINDINGS:?Skin shows sign(s) of localized cellulitis right hallux.?Orthopedic: ?MUSCLE STRENGTH:?5/5 all groups in a symmetrical fashion , B/L.?FOOTWEAR:?1/2 size too small toe pressing on shoe.?Ingrown Nail: ?INSPECTION:? Reveals cont.nail incurvation, pain on palpation,distal aspect of?T5,There is evidence of surrounding periungual tissue erythema.? Assessment: * Assessment: 1.?Raynaud's disease without gangrene - I73.00???2.?Cellulitis of toe of right foot - L03.031 (Primary)???Specify :Acute problem, Complicated w/ Multiple Tx Options(4)???3.?Ingrowing nail - L60.0???4.?Pain in right toe(s) - M79.674??? Plan: * Treatment: * Procedure Codes:? * Preventive Medicine:? ??Counseling:?Discussion:?-13: Office or other outpatient visit for the evaluation and management of an established patient, which required a medically appropriate history and/or examination and LOW level of DECISION MAKING for: 1 STABLE ACUTE UNCOMPLICATED PROBLEM, 2 OR MORE MINOR PROBLEMS, OR 1 STABLE CHRONIC PROBLEM, THAT POSE(S) A LOW RISK FOR MORBIDITY/MORTALITY. The visit on the day of the encounter encompassed interpreting the data and educating the patient as to the nature of their condition, treatment options available according to their individual PMH, meds, allergies, and overall health/living conditions, as well as any potential risks or complications that may occur from a failure to adhere to, and participate in, the recommended course of therapy. The discussion included a complete verbal, and/or written explanation of the examination results, any x-rays taken, the proposed diagnosis, and outline of the treatment plan. A schedule for future care needs was also explained. The patient verbalized an understanding of the instructions at this time and agreed to be an active participant in their treatment. If the patient should think of any questions or concerns after the visit, I have encouraged the patient to call the office.?Cellulitis/Lymphangitis?Discussed with the pt the need to change her antibiotic. Cephalexin was sent to the pharmacy.?Misc.:?Discussed other tx options for the patients condition, Discussed the pressure from the shoes. Discussed the need to change 1/2 size or wear an open toed shoe.? * Images: * Sign off status: Completed true * Provider:?Tiesha Mary DPM Date:?2024 Generated for Theresa allison/Helena/Radha on:?10/08/2024 04:09 PM EDT History and Physical Notes * HPI (History of Present Illness) Category Sub-Category Detail Notes Category Not es Skin problems Location: Tip, Right , 1st, Toe(s) Duration: several weeks Onset/Cause: unknown, denies inju ry, cold temperature Course: worsened, unchanged Aggravated by: any pressure Treatments: soaks, medication ( doxycycline hyclate 100 mg x 7 days) Severity/Quality: moderate Examination Category Sub-Category Detail Notes Category Not es Ingrown Nail INSPECTION: Reveals cont.nicolette l incurvation, pain on palpation,distal aspect of T5,There is evidence of surrounding periungual tissue erythema Neurological SENSORY: Neurological exa m reveals intact sensorium, pain sensation normal, vibration sensation intact, pinprick sensation is normal in the lower extremities, Pt denies, anesthesia, burning, paresthesia, tingling, B/L Dermatologic SKIN FINDINGS: Skin shows sign( s) of localized cellulitis right hallux Orthopedic FOOTWEAR EVALUATION: 1/2 size to o small toe pressing on shoe MUSCLE STRENGTH: 5/5 all groups in a symmetrical fashion , B/L General Examination GENERAL APPEARANCE: Reveals a pleasant, alert, well nourished, well-developed, well hydrated individual, who demonstrates proper attention to hygiene/body habitus, and is in no acute distress, Pt serves as own historian for office visit today ORIENTED: person, place, and t donna Vascular DP PULSES (B): 0/4, B/L PT PULSES (B): 2/4, B/L CAPILLARY FILL TIME: delayed, all digits , B/L TEMPERTURE GRADIENT (C): decreased, cool to cold, proximal to distal, B/L TROPHIC CONDITION-TEXTURE/ELASTICITY/TURGOR/HAIR GROWTH (B): decreased, with sparse to absent hair gr owth, B/L EDEMA (C): absent, B/L TELANGECTASIA: absent, B/L CLAUDICATION (C): denies, B/L REST PAIN: denies, B/L PIGMENTATION: mottled, B/L
--- OUTSIDE RECORDS SUMMARY | 2024-10-08 16:09 | XMS_ITS ---
Author Organization [facility] roger [place] Address [address] [place] [address] Care Team Providers Care Blacking Wheel Tender Name Role Phone Bishop Hansen MD Primary Care Provider Yasir Asher Unavailable [phone] Black, Tiesha Unavailable [phone] Allergies Allergen (clinical drug ingredient) Drug/Non Drug [...] above Performing Lab: Notes/Report: See Examination above REASON FOR VISIT Pcp-04/03, Pcp-04/03, skin problem Medications Medication SIG (Take, Route, Frequency, Duration) Notes Start Date End Date Status Claritin Active CoQ10 100 MG as directed Orally Active Calcium + D3 600-200 MG-UNIT 1 tablet with a meal Orally Once a day for 30 day(s) Active Centrum Silver Activ e Night Splint AFO - L1930 as directed 08/07/2018 Not-Taking Doxycycline Hyclate 100 MG 1 capsule Orally Once a day for 10 day(s) 8 days Not-Taking Meloxicam 15 MG 1 tablet Orally Once a day for 30 day(s) Not-Taking Ranitidine Not-Takin g Loratadine 10 MG 1 tablet Orally Once a day for 30 day(s) Not-Taking Zolpidem Tartrate 5 MG 1/2 tablet at bed time Orally prn Not-Taking Stool Softener 100 MG 1 capsule as neede d Orally Once a day for 30 day(s) Active Tylenol Active Doxycycline Hyclate 100 MG 1 capsule Orally Twice a day for 7 days Active Cephalexin 500 MG 1 capsule Orally twi ce a day for 10 days 08/21/2024 Active Omeprazole Active Flaxseed Oil 1000 MG as directed Orally Active Gabapentin Active Magnesium 250 MG 2 tablet with a meal Orally Once a day Active Ibuprofen Active Social History Tobacco Use: Social History Observation Description Date Details (start date - stop date) Never Smoker NA - NA Tobacco use other than smoking: Question Answer Notes Are you an other tobacco user? No Tobacco Control (Standard) Question Answer Notes Tobacco use: Nonsmoker Additional Findings: Tobacco non-user Current no nsmoker Problems Problem Type SNOMED Code ICD Code Onset Dates Problem Status W/U Status Risk Notes Problem Acquired hammer toe of right foot (4766003149616 105) Hammer toe of right foot (M20.41) Active confirmed Vital Signs Height 5ft6in in 09/04/2024 Weight 115 lbs 09/04/2024 BMI 18.56 kg/m2 09/04/2024 Blood pressure systolic 120 mm Hg 09/05/19 25 Blood pressure diastolic 78 mm Hg 025 Encounters Encounter Location Date Provider Diagnosis [facility] [address] [address] 09/04/2024 Tiesha Black Raynaud's disease without gangrene I73.00 ; Hammer toe of right foot M20.41 and Pain in right toe(s) M79.674 Assessments Encounter Date Diagnosis (ICD Code) Assessment Notes Treatment Notes Treatment Clinical Notes Section Notes 09/04/2024 Raynaud's disease without gangrene (ICD-10 - I73.00) 09/04/2024 Hammer toe of right foot (ICD-10 - M20.41) 09/04/2024 Pain in right toe(s) (ICD-10 - M79.674) Plan Of Treatment Next Appt Details Follow Up: prn, Reason: Progress Notes * Socorro SALAZAR ADOB: (69 yo F)Acc No.[id number]:09/04/2024 Progress Notes Patient:?Reinaldo SALAZAR Provider:?Tiesha Mary DPM :1955???Age:69 Y???Sex:Female D ate:09/04/2024 Address:[address] [place], [place] [id number] Pcp:Bishop Hansen MD Subjective: * Chief Complaints: * ???Pcp-04/03Pcp-04/03Skin pr oblem * HPI: ???Skin problems:?Location:?Tip, Right , 1st, Toe(s).?Duration:?, a month.?Onset/Cause:?unknown, denies injury, cold temperature.?Course:?, improved, unresolved.?Aggravated by:?any pressure.?Treatments:?soaks, medication ( doxycycline hyclate 100 mg x 7 days, cephalexin 500mg x 10days), chnage in shoe size, wearing opened toed shoes.?Severity/Quality:?moderate.? * ROS:?General/Constitutional:?Nausea?denies.?Vomiting?denies.?Hunger Thirst?denies.?Loss appetite?denies.?Chills?denies.?Fatigue?denies.?Fever?denies.?Night Sweats?denies.?Unexplained weight loss?denies.?Unexplained [...] ?Marital status: . 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 * Medications:?TakingCalcium + D3 600-200 MG-UNIT Tablet [...] Capsule 1 capsule Orally Twice a day Cephalexin 500 MG Capsule 1 capsule Orally twice a day Taking Calcium + D3 600-200 [...] 1 capsule Orally Twice a day Taking Cephalexin 500 MG Capsule 1 capsule Orally twice a day Not-Taking/PRNDoxycycline Hyclate 100 MG Capsule [...] Vitals:?Ht: 5ft6in, Wt:115, BMI:18.56, Shoe size: 9.5, BP:120/78mm Hg, Ht-cm: 167.64 cm, Wt-k.16 kg. * [...] anesthesia, burning, paresthesia, tingling, B/L.?Vascular: ?DP PULSES (B):?, 1/4, B/L.?PT PULSES (B):?2/4, B/L.?CAPILLARY FILL TIME:? delayed, all digits, B/L.?TROPHIC CONDITION-TEXTURE/ELASTICITY/TURGOR/HAIR GROWTH (B):? decreased,?with sparse to absent hair growth, B/L.?TEMPERTURE GRADIENT (C):? decreased, cool to cold, proximal to distal, B/L.?PIGMENTATION:?mottled, B/L, rubrous, B/L.?EDEMA (C):?absent, B/L.?CLAUDICATION (C):?denies, B/L.?REST PAIN:?denies, B/L.?TELANGECTASIA:?absent, B/L.?Orthopedic: ?MUSCLE STRENGTH:?5/5 all groups in a symmetrical fashion , B/L.?BUNION:?Medially prominent 1st MPJ, B/L, inflammation present medial and distal right hallux, contracture at IPJ noted.?FOOTWEAR:?1/2 size too small toe pressing on shoe.?X-Rays - IMAGING REPORT: ?Clinical Indication(s):?Evaluate for Fracture, Evaluate Biomechanical Deformity.?Views:?3 views of Foot, LAT RAISED HALLUX, AP, MO, Taken by a trained Podiatric Staff Trainer ( [place] ).?HAV:?No subungual exostosis evident.?Fracture:?Negative fractures identified.? Assessment: * Assessment: 1.?Hammer toe of right foot - M20.41 (Primary)???2.?Raynaud's disease without gangrene - I73.00???3.?Pain in right toe(s) - M79.674??? Plan: * Treatment: * Procedure Codes:?58254 X-RAY EXAM OF RIGHT FOOT 3V, Modifiers: 26 , RT * Preventive Medicine:? ??Counseling:?Discussion:?-13: Office or other [...] have encouraged the patient to call the office.?[employer].:?Discussed and reviewed the X-rays with the patient. We discussed how the findings relate to the patients symptoms/complaints. Answered any and all questions. Discussed wearing shoes that are the correct size thus decreasing pressure to the hallux. Discussed no signs of infection at this time. Discussed the role her Raynaud's and the pressure to the hallux are having. Pt will try and keep the toes warm and decrease the pressure to the hallux.? * Follow Up:?prn * Images: * Sign off status: Completed true * Provider:?Tiesha Mary DPM Date:?2024 Generated for Theresa allison/Helena/Radha on:?10/08/2024 04:08 PM EDT History and Physical Notes * HPI (History of Present Illness) Category Sub-Category Detail Notes Category Not es Skin problems Location: Tip, Right , 1st, Toe(s) Duration: , a month Onset/Cause: unknown, denies inju ry, cold temperature Course: , improved, unresolv ed Aggravated by: any pressure Treatments: soaks, medication ( doxycycline hyclate 100 mg x 7 days, cephalexin 500mg x 10days), chnage in shoe size, wearing opened toed shoes Severity/Quality: moderate Examination Category Sub-Category Detail Notes Category Not es Neurological SENSORY: Neurological exa m reveals intact sensorium, pain sensation normal, vibration sensation intact, pinprick sensation is normal in the lower extremities, Pt denies, anesthesia, burning, paresthesia, tingling, B/L Dermatologic SKIN FINDINGS: Orthopedic BUNION: Medially promine nt 1st MPJ, B/L, inflammation present medial and distal right hallux, contracture at IPJ noted FOOTWEAR EVALUATION: 1/2 size too small toe pressing on shoe MUSCLE STRENGTH: 5/5 all groups in a symmetrical fashion , B/L General Examination GENERAL APPEARANCE: Reveals a pleasant, alert, well nourished, well-developed, well hydrated individual, who demonstrates proper attention to hygiene/body habitus, and is in no acute distress, Pt serves as own historian for office visit today ORIENTED: person, place, and t donna Vascular DP PULSES (B): , 1/4, B/L PT PULSES (B): 2/4, B/L CAPILLARY FILL TIME: delayed, all digits , B/L TEMPERTURE GRADIENT (C): decreased, cool to cold, proximal to distal, B/L TROPHIC CONDITION-TEXTURE/ELASTICITY/TURGOR/HAIR GROWTH (B): decreased, with sparse to absent hair gr owth, B/L EDEMA (C): absent, B/L TELANGECTASIA: absent, B/L CLAUDICATION (C): denies, B/L REST PAIN: denies, B/L PIGMENTATION: mottled, B/L, rubrou s, B/L X-Rays - IMAGING REPORT Fracture: Negative fracture s identified HAV: No subungual exostos is evident Views: 3 views of Foot, LAT RAISED HALLUX, AP, MO, Taken by a trained Podiatric Staff Trainer ( SF ) Clinical Indication(s): Evaluate for Fra cture, Evaluate Biomechanical Deformity
== END 2024-10-08 15:53 | disposition home or self-care (01) ==
LOC: HO.HMCHD 15:05
PROVIDERS: PCP Physician Assistant; Visit Provider Physician Assistant
DX: J32.9 Chronic sinusitis, unspecified (principal); M40.209 Unspecified kyphosis, site unspecified; K21.9 Gastro-esophageal reflux disease without esophagitis

== ENCOUNTER → 2024-10-08 15:04 | Outpatient (BNVA) | payer MEDICARE, OTHER, SELFPAY | PROVIDERS: PCP Physician Assistant; Visit Provider Physician Assistant | DX: J32.9 Chronic sinusitis, unspecified (principal); M40.209 Unspecified kyphosis, site unspecified; K21.9 Gastro-esophageal reflux disease without esophagitis | CPT/HCPCS: 96127; 99202 ==

== ENCOUNTER 2024-10-24 08:43 | Day surgery (SDC) | payer MEDICARE, OTHER, SELFPAY ==
--- OUTSIDE RECORDS SUMMARY | 2024-10-17 11:51 | XMS_ITS ---
Author Organization [facility] Address [address] [place] [address] Care Team Providers Care Card Lacer Jacquard Name Role Phone Bishop Hansen MD Primary Care Provider Charli Jackson [phone] REASON FOR VISIT epigastric pain,abn ct scan sm bwl Problems Problem Type SNOMED Code ICD Code Onset Dates Problem Status W/U Status Risk Notes Problem Gastro-esophagea l reflux disease without esophagitis (258342272) Gastro-esophage al reflux disease without esophagitis (K21.9) Active confirmed Problem Benign neoplasm of stomach (46217079) Gastric polyps (K31.7) Active confirmed Encounters Encounter Location Date Provider Diagnosis [facility] Outpatient [address] [place], [place] [phone] 12/20/2023 Charli Hart Other specified functional intestinal [...] loss (ICD-10 - R63.4) Plan Of Treatment Next Appt Details Provider Name:Charli Hart , 10/24/2024 10:00:00 AM, [address] [place] [address] , [place], [place], [phone], Progress Notes * SABINA NEWDOB:12/1954 (69 yo F)Acc No.[id number]:12/20/2023 EGD/MAC Patient:?GEMA NEW Provider:?Charli Hart MD :1955???Age:68 Y???Sex:Female D ate:12/20/2023 Address:[address] [place] [address] Pcp:Bishop Hansen MD Subjective: * Chief Complaints: * ???1. Epigastric pain,abn ct scan sm bwl. * Medical History:? Objective: * Vitals:? 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 Plan: * Treatment: * Procedure Codes:?18652 SMALL BOWEL ENDOSCOPY/BIOPSY * * The named appointment provid er may or may not be the originator of this progress note, and it is not deemed complete until electronically signed by the appointment provider. Sign off status: Pending * Provider:?Charli Hart MD Date:? 024 Generated for Theresa allison/Helena/eTransmitting on:?10/17/2024 11:51 AM EDT
--- OUTSIDE RECORDS SUMMARY | 2024-10-17 11:51 | XMS_ITS ---
Author Organization [facility] Address [address] [place] [address] Care Team Providers Care In Store Marketing Associate Name Role Phone Bishop Hansen MD Primary Care Provider Charli Jackson [phone] Encounters Encounter Location Date Provider Diagnosis [facility] [address] [place] [address] 01/05/2024 Charli Hart Plan Of Treatment Next Appt Details Provider Name:Charli Hart , 10/24/2024 10:00:00 AM, [address] [place] [address] , [place], [place], [phone], Progress Notes * SABINA NEWDOB:12/1954 (68 yo F)Acc No.[id number]:01/05/2024 Patient:?GEMA NEW :1955???Age:68 Y???Sex:Female Address:[address] [place] [address] * true * Date:? Generated for Printi keegan/Helena/eTransmitting on:?10/17/2024 11:51 AM EDT
--- OUTSIDE RECORDS SUMMARY | 2024-10-17 11:51 | XMS_ITS ---
Author Organization [facility] Address [address] [place] [address] Care Team Providers Care Staff Electronic Warfare Officer Name Role Phone Bishop Hansen MD Primary Care Provider Yasir Asher Unavailable [phone] Black, Tiesha Unavailable [phone] Allergies Allergen (clinical drug ingredient) Drug/Non Drug [...] Problem Acquired hammer toe of right foot ([id number]) Hammer toe of right foot (M20.41) Active confirmed Vital Signs Height 5ft6in in 09/04/2024 Weight 115 lbs 09/04/2024 BMI 18.56 kg/m2 09/04/2024 Blood pressure systolic 120 mm Hg 09/05/19 25 Blood pressure diastolic 78 mm Hg 025 Encounters Encounter Location Date Provider Diagnosis [facility] [address] [address] 09/04/2024 Tiesha Black Raynaud's disease without gangrene [...] * Socorro SALAZAR ADOB: (69 yo F)Acc No.[id number]:09/04/2024 Progress Notes Patient:?Reinaldo SALAZAR Provider:?Tiesha Mary DPM :1955???Age:69 Y???Sex:Female D ate:09/04/2024 Address:[address] [place], [place] [phone] Pcp:Bishop Hansen MD Subjective: * Chief Complaints: [...] ?Marital status: . 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 * Medications:?TakingCalcium + D3 600-200 MG-UNIT Tablet [...] [place], [place], Taken by a trained Podiatric Commercial Development Manager ( SF ).?HAV:?No subungual exostosis evident.?Fracture:?Negative fractures identified.? Assessment: * Assessment: 1.?Hammer toe of right foot - M20.41 (Primary)???2.?Raynaud's disease without gangrene - I73.00???3.?Pain in right toe(s) - M79.674??? Plan: * Treatment: * Procedure Codes:?36490 X-RAY EXAM OF RIGHT FOOT 3V, Modifiers: [...] Mary DPM Date:?2024 Generated for Theresa allison/Helena/Radha on:?10/17/2024 11:51 AM EDT History and Physical Notes * HPI [...] [place], [place], Taken by a trained Podiatric Commercial Development Manager ( SF ) Clinical Indication(s): Evaluate for Fra cture, Evaluate Biomechanical Deformity
--- OUTSIDE RECORDS SUMMARY | 2024-10-17 11:52 | XMS_ITS ---
Author Organization [facility] Address [address] [place] [address] Care Team Providers Care Care Transition Manager Name Role Phone Bishop Hansen MD Primary Care Provider Charli Jackson [phone] Allergies Allergen (clinical drug ingredient) Drug/Non Drug Allergy documented on EMR Reaction Allergy Type Onset Date Status meperidine Demerol Unknown Drug Allergy Active REASON FOR VISIT Patient presents today for ABN CT SCAN OF GI TRACT Medications Medication SIG (Take, Route, Frequency, Duration) [...] Oil 1000 MG as directed Orally Active Immunizations Vaccine Route Administration Date Status Comme nts Influenza Unknown 04/23/2024 Refused Problems Problem Type SNOMED Code ICD Code Onset Dates Problem Status W/U Status Risk Notes Problem Colon cancer screening (092378600) Colon cancer screening (Z12.11) Active confirmed Vital Signs Temperature 96.9 degrees Fahrenheit 04/23/20 24 Blood pressure systolic 000 mm Hg 04/23/20 24 Blood pressure diastolic 00 mm Hg 024 Height 66.5 in 04/23/2024 Weight 115 lb 6 oz lbs 04/23/2024 BMI 18.34 kg/m2 04/23/2024 Encounters Encounter Location Date Provider Diagnosis [facility] [address] [place] [address] 04/23/[address] scan, small bowel R93.3 ; Chronic GERD K21.9 and Colon cancer screening Z12.11 Assessments Encounter Date Diagnosis (ICD Code) Assessment Notes Treatment Notes Treatment Clinical Notes Section Notes 04/23/[address] scan, small bowel (ICD-10 - R93.3) Overall, Socorro appears quite well and her previous GI complaints have completely resolved. Her GI workup with upper endoscopy, small bowel biopsies, ultrasound, and laboratories has been completely nonrevealing as well. At this point I don't think she needss any further workup in that regard. I did advise her to certainly let me know if she has any recurrent symptoms that I can be of assistance with. I did recommend a followup colonoscopy for screening purposes in 2024 given that her last exam was in 2014. We did review the rationale for that in regard to colon cancer prevention. Full consent was obtained for this, including risks of bleeding and perforation. The procedure will be done with monitored anesthesia care. Socorro was comfortable with this plan. Thank you again for allowing me to participate in Socorro's care. I shall continue to keep you advised of her progress. 04/23/2024 Chronic GERD (ICD-10 - K21.9) Overall, Socorro appears quite well and her previous GI complaints have completely resolved. Her GI workup with upper endoscopy, small bowel biopsies, ultrasound, and laboratories has been completely nonrevealing as well. At this point I don't think she needss any further workup in that regard. I did advise her to certainly let me know if she has any recurrent symptoms that I can be of assistance with. I did recommend a followup colonoscopy for screening purposes in 2024 given that her last exam was in 2014. We did review the rationale for that in regard to colon cancer prevention. Full consent was obtained for this, including risks of bleeding and perforation. The procedure will be done with monitored anesthesia care. Socorro was comfortable with this plan. Thank you again for allowing me to participate in Socorro's care. I shall continue to keep you advised of her progress. 04/23/2024 Colon cancer screening (ICD-10 - Z12.11) Overall, Socorro appears quite well and her previous GI complaints have completely resolved. Her GI workup with upper endoscopy, small bowel biopsies, ultrasound, and laboratories has been completely nonrevealing as well. At this point I don't think she needss any further workup in that regard. I did advise her to certainly let me know if she has any recurrent symptoms that I can be of assistance with. I did recommend a followup colonoscopy for screening purposes in 2024 given that her last exam was in 2014. We did review the rationale for that in regard to colon cancer prevention. Full consent was obtained for this, including risks of bleeding and perforation. The procedure will be done with monitored anesthesia care. Socorro was comfortable with this plan. Thank you again for allowing me to participate in Socorro's care. I shall continue to keep you advised of her progress. Plan Of Treatment Future Test Test Name Order Date COLONOSCOPY 04/23/2024 Next Appt Details Follow Up: prn, Reason: Provider Name:Charli Hart , 10/24/2024 10:00:00 AM, [address] [place] [address], [phone], Progress Notes * SOCORRO NEWDOB:12/1954 (69 yo F)Acc No.[id number]:04/23/2024 Progress Notes Patient:?GEMA NEW Provider:?Charli Hart MD :1955???Age:69 Y???Sex:Female D ate:04/23/2024 Address:[address] [place], [place] [id number] Pcp:Bishop Hansen MD Subjective: * Chief Complaints: * ???Patient presents today fo r ABN CT SCAN OF GI TRACT * HPI: ???incontinence:? I saw Socorro in followup today in regard to her previous abdominal discomfort and abnormal CT scan of the small intestine. ?As you know, Socorro underwent an upper endoscopy in December for evaluation of her previously abnormal CT scan of her small intestine and some abdominal discomfort. I used a colonoscope to evaluate the proximal small intestine for as far as possible. There was no evidence of any mucosal abnormalities and specifically there was no sign of inflammatory bowel disease nor peptic ulcer disease. Biopsies from the small bowel were unremarkable. An abdominal ultrasound at that time was negative for gallstones or any other pathology. She denies any significant ongoing GI symptoms at this time. She denies any significant heartburn, dysphagia, anorexia, early satiety, nausea, nor vomiting. She reports that her previous abdominal discomfort has resolved and her weight has been stable. She denies any signs of jaundice. Her bowel movements have also been regular and without any sign of bleeding. In general, she is feeling much better than she had been earlier in the year. ?Laboratories just last month revealed a normal CBC, chemistries and renal function, and LFTs. Laboratories for celiac disease were negative back in December as well. * ROS:?General/Constitutional:?Change in appetite?denies.?Chills?denies.?Fatigue?denies.?Ophthalmologic:?Patient denies? Negative..?ENT:?Patient denies?Negative..?Respiratory:?Patient denies?No coughing/hemoptysis..?Cardiovascular:?Patient denies? No chest pain/orthopnea..?Gastrointestinal:?Comments?See HPI for details.?Genitourinary:?Patient denies? No dysuria/hematuria..?Incontinence?denies.?Musculoskeletal:?Comments?Back pain.?Skin:?Patient denies?No rash/pruritus..?Neurologic:?Patient denies? No headaches/seizures..?Psychiatric:?Patient denies?Negative..? * Medical History:? * Surgical History:?Benign ryan ast lump * Hospitalization/Major Diagno stic Procedure:?No Hospitalization History. * Family History:?Father: dece ased, diagnosed with Heart disease, HTN (hypertension).?Mother: , diagnosed with Diabetes, Heart disease.?Siblings: brother, diagnosed with HTN (hypertension), Heart disease.? There is no family history of colon cancer. No family history of liver cancer. * Social History:?Tobacco Use:?Tobacco Use/Smoking?Are you a: nonsmoker.?Drugs/Alcohol:?Alcohol Screen?Points: 2, Interpretation: Negative.?Miscellaneous:?Marital status: . Occupation: [employer]. ???Nonsmoker; no sig alcohol. * Medications:?TakingFlax Seed Oil 1000 MG Capsule as directed Orally CoQ10 100 MG Capsule as directed Orally once a dayTylenol Senna Omeprazole 20 MG Capsule Delayed Release Oral Gabapentin 100 MG Capsule Oral Ibuprofen 200 MG Tablet 1 tablet as needed Orally prnMulti Vitamin/Minerals Tablet Orally Stool Softener 250 MG Capsule 1 capsule as needed Orally twice a dayCalcium 600 + D 600-200 MG-UNIT Tablet Orally Magnesium 250 MG Tablet 2 tablet with a meal Orally Once a dayClaritin 10 MG Tablet 1 tablet Orally Once a dayMetamucil 0.52 GM Capsule 2 capsules with 8 ounces of liquid Orally QAMMedication List reviewed and reconciled with the patientTaking Flax Seed Oil 1000 MG Capsule as directed Orally Taking CoQ10 100 MG Capsule as directed Orally once a dayTaking Tylenol Taking Senna Taking Omeprazole 20 MG Capsule Delayed Release Oral Taking Gabapentin 100 MG Capsule Oral Taking Ibuprofen 200 MG Tablet 1 tablet as needed Orally prnTaking Multi Vitamin/Minerals Tablet Orally Taking Stool Softener 250 MG Capsule 1 capsule as needed Orally twice a dayTaking Calcium 600 + D 600- 200 MG-UNIT Tablet Orally Taking Magnesium 250 MG Tablet 2 tablet with a meal Orally Once a dayTaking Claritin 10 MG Tablet 1 tablet Orally Once a dayTaking Metamucil 0.52 GM Capsule 2 capsules with 8 ounces of liquid Orally QAMMedication List reviewed and reconciled with the patient * Allergies:?Demerolyes[Allerg ies Verified] Objective: * Vitals:?Wt: 115 lb 6 oz, Ht: 66.5 in, BMI:18.34 Index, BP: 000/00 mm Hg, Temp: 96.9. * Examination: ???General Examination: ?GENERAL APPEARANCE:?pleasant, well nourished, well developed, in no acute distress.?EYES:?sclera non-icteric.?ORAL CAVITY:?mucosa moist.?NECK/THYROID:?no cervical lymphadenopathy, neck supple.?SKIN:?nonjaundiced, no spider angiomata..?HEART:?S1, S2 normal.?LUNGS:?clear to auscultation bilaterally.?ABDOMEN:?normal bowel sounds, no guarding or rigidity, no hepatosplenomegaly, no masses palpable, soft, nontender, nondistended..?EXTREMITIES:?no edema.?NEUROLOGIC:?alert and oriented.? Assessment: * Assessment: 1.?Abnormal CT scan, small b owel - R93.3 (Primary)?2.?Chronic GERD - K21.9?3.?Colon cancer screening - Z12.11? Overall, Socorro appears qu ite well and her previous GI complaints have completely resolved. Her GI workup with upper endoscopy, small bowel biopsies, ultrasound, and laboratories has been completely nonrevealing as well. At this point I don't think she needss any further workup in that regard. I did advise her to certainly let me know if she has any recurrent symptoms that I can be of assistance with. I did recommend a followup colonoscopy for screening purposes in 2024 given that her last exam was in 2014. We did review the rationale for that in regard to colon cancer prevention. Full consent was obtained for this, including risks of bleeding and perforation. The procedure will be done with monitored anesthesia care. Socorro was comfortable with this plan. Thank you again for allowing me to participate in Socorro's care. I shall continue to keep you advised of her progress. Plan: * Treatment: * Immunizations:? Influenza (Not administered - Refused: Patient decision) * Procedure Codes:?3017F COLOR ECTAL CA SCREEN DOC [id number] TOBACCO [id number] BP SCR NOT PRFRM REC REASON NOS * Preventive Medicine:? ??Counseling:?Care goal follow-up plan:?Below Normal BMI Follow-up?Dietary education for weight gain,?BMI management provided?Yes.? ??Urinary Incontinence:?Urinary Incontinence?Assessment:?Absent,?Plan of care documented:?No, reason not specified.? ??Screenings:?Fall Risk Screening?Fall Risk Assessment:?No falls in the past year,?Screening:?No falls in the past year,?Assessment:?Not performed, no reason specified,?Plan of Care:?Not documented, no reason specified.? * Follow Up:?prn * * Sign off status: Completed true * Provider:?Charli Hart MD Date:? 024 Generated for Theresa allison/Helena/eTransmitting on:?10/17/2024 11:51 AM EDT History and Physical Notes * HPI (History of Present Illness) Category Sub-Category Detail Notes Category Not es incontinence I saw Socorro in followup today in regard to her previous abdominal discomfort and abnormal CT scan of the small intestine. As you know, Socorro underwent an upper endoscopy in December for evaluation of her previously abnormal CT scan of her small intestine and some abdominal discomfort. I used a colonoscope to evaluate the proximal small intestine for as far as possible. There was no evidence of any mucosal abnormalities and specifically there was no sign of inflammatory bowel disease nor peptic ulcer disease. Biopsies from the small bowel were unremarkable. An abdominal ultrasound at that time was negative for gallstones or any other pathology. She denies any significant ongoing GI symptoms at this time. She denies any significant heartburn, dysphagia, anorexia, early satiety, nausea, nor vomiting. She reports that her previous abdominal discomfort has resolved and her weight has been stable. She denies any signs of jaundice. Her bowel movements have also been regular and without any sign of bleeding. In general, she is feeling much better than she had been earlier in the year. Laboratories just last month revealed a normal CBC, chemistries and renal function, and LFTs. Laboratories for celiac disease were negative back in December as well. Examination Category Sub-Category Detail Notes Category Not es General Examination GENERAL APPEARANCE: pleasant , well [...]
--- OUTSIDE RECORDS SUMMARY | 2024-10-17 11:52 | XMS_ITS | Patient Health Record ---
Author Organization [facility] Address [address] [place] [address] Care Team Providers Care Sales Administration Specialist Name Role Phone Bishop Hansen MD Primary Care Provider Charli Jackson [phone] Allergies Allergen (clinical drug ingredient) Drug/Non Drug Allergy documented on EMR Reaction Allergy Type Onset Date Status meperidine Demerol Unknown Drug Allergy Active Results Component Value Reference Range Notes Amylase Reviewed date:12/18/2023 11:58:21 PM Interpretation: Performing Lab:[facility], [address] [place] [phone] Notes/Report: Amylase 71 28-100 U/L Lipase Reviewed date:12/18/2023 11:58:13 PM Interpretation: Performing Lab:[facility], [address] [place] [address] Notes/Report: Lipase 35 8-78 U/L US abdomen complete Reviewed date:12/19/2023 05:23:43 PM Interpretation: Performing Lab: Notes/Report: [facility] [address] [place] [address] [place] [address] Ultrasound Report Signed Patient: Socorro Salazar MR#: [id number] : 1955 Acct:[id number] Age/Sex: 68 / F ADM Date: 12/19/23 Loc: HO.HMGCX Attending Dr: Charli Hart MD Ordering Physician: Charli Hart MD Date of Service: 12/19/23 Procedure(s): US abdomen complete Accession Number(s): [id number] cc: Bishop Hansen MD; Charli Hart MD [...] in OV> 12/19/23 1144 DD/ 1101 TD/TT: Traffic Coordinator: [facility] [address] [place] [address] Ultrasound Report Signed Patient: Socorro Salazar MR#: [id number] : 1955 Acct:[id number] Age/Sex: 68 / F ADM Date: 12/19/23 Loc: HO.HMGCX Attending Dr: Charli Hart MD Ordering Physician: Charli Hart MD Date of Service: 12/19/23 Procedure(s): US abdomen complete Accession Number(s): [id number] cc: Bishop Hansen MD ; Charli Hart MD EXAMINATION: US ABDOMEN COMPLETE CLINICAL INFORMATION: History of abnormal CT imaging exam. Epigastric abdominal pain. COMPARISON: None available. TECHNIQUE: Real-time imaging of the abdominal viscera. FINDINGS: PANCREAS: Normal. ABDOMINAL AORTA: The proximal, mid, and distal segments are normal in caliber. INFERIOR VENA CAVA: Visualized portions are normal. LIVER: Liver has nor mal size, contour and parenchymal echotexture. No evidence [...] normal size, cortical thickness and echotexture. No sachin l mass, nephrolithiasis or hydronephrosis. The right kidney is 11.9 cm and left kidney 11.5 cm in length. SPLEEN: Normal. The spleen measures 10.2 cm in maximum dimension. FREE FLUID: None. US/US abdomen complete IMPRESSION: * No acute sonograph ic abnormalities in the visualized abdomen. No evidence of cholelithiasis, cholecystitis or biliary tract obstruction. * Incidentally noted is a 0.3 cm gallbladder polyp. Dictated By: Gregor Man MD Signed By: <Electronically signed by Gregor Man MD in OV> 12/19/23 1144 DD/ 1101 TD/TT: Traffic Coordinator: Complete Blood Count Auto Di ff Reviewed date:12/18/2023 11:06:52 AM Interpretation: Performing Lab:[facility], [address] [place] [phone] Notes/Report: White Blood Count 4.5 4.8-10.8 X10*3/uL [...] te Reviewed date:12/18/2023 11:57:43 PM Interpretation: Performing Lab:[facility], [address] [place] [address] Notes/Report: Erythrocyte Sedimentation Rate 2 0-20 MM/HR Patients with polycythemia and many hemoglobin abnormalities may have depressed sed rates whereas patients with anemia may have elevated sed rates. Liver Panel Reviewed date:12/18/2023 11:57:52 PM Interpretation: Performing Lab:[facility], [address] [place] [address] Notes/Report: Bilirubin Total 0.2 0.0-1.0 mg/dL Bilirubin Direct < 0.2 0.0-0.5 mg/dL Aspartate Amino Transferase 17 5-31 U/L Alanine Aminotransferase 15 0-31 U/L Total Protein 7.2 6.5-8.0 g/dL Albumin Level 4.4 3.5-5.0 g/dL Alkaline Phosphatase 99 39-117 U/L C Reactive Protein Reviewed date:12/18/2023 11:58:02 PM Interpretation: Performing Lab:[facility], [address] [place] [phone] Notes/Report: C Reactive Protein < 0.04 < or = 0.50 mg/dL Immunoglobulin A Reviewed date:12/27/2023 08:59:18 AM Interpretation: Performing Lab:[facility], [address] [place] [phone] Notes/Report: Immunoglobulin A 94 70-320 mg/dL THIS TEST WAS PERFORMED AT: [facility] [address] [place] [phone] ALYSIA GIBBONS MD Transglutaminase Ab IgG Reviewed date:12/27/2023 08:59:24 AM Interpretation: Performing Lab:[facility], [address] [place] [address] Notes/Report: Transglutaminase Ab IgG <1.0 Value Interpretation ----- <15.0 Antibody not detected > or = 15.0 Antibody detected THIS TEST WAS PERFORMED AT: [facility] [address] [place] [phone] ALYSIA GIBBONS MD Transglutaminase IgA Reviewed date:12/27/2023 08:59:30 AM Interpretation: Performing Lab:[facility], [address] [place] [address] Notes/Report: Transglutaminase IgA <1.0 Value Interpretation ----- <15.0 Antibody not detected > or = 15.0 Antibody detected THIS TEST WAS PERFORMED AT: [facility] [address] [place] [phone] ALYSIA GIBBONS MD Gliadin Ab Panel Reviewed date:12/27/2023 08:59:36 AM Interpretation: Performing Lab:[facility], [address] [place] [address] Notes/Report: Gliadin Deamidated IgA Ab <1.0 Value Interpretation ----- <15.0 Antibody not detected > or = 15.0 Antibody detected Gliadin Deamidated IgG Ab <1.0 Value Interpretation ----- <15.0 Antibody not detected > or = 15.0 Antibody detected THIS TEST WAS PERFORMED AT: [email or web address] [address] [place] [phone] ALYSIA GIBBONS MD Endomysial IgA rflx Titer Reviewed date:12/27/2023 08:59:42 AM Interpretation: Performing Lab:[facility], [address] [place] [address] Notes/Report: Endomysial IgA Antibody Negative Negative THIS TEST WAS PERFORMED AT: [email or web address]/[address] [address] LOI SAMAYOA MD,PHD Endomysial Titer TNP Pathology Reviewed date:01/05/2024 04:36:49 PM Interpretation: Performing Lab:[facility], [address] [place] [address] Notes/Report: --- Name: Socorro Salazar Age/Sex: 68/F : 1955 [id number] [id number] Attend Dr: Charli Hart MD Re12/20/23 Status : [facility] Location: [facility] Disch: --- SPEC : [id number] RECD : 12/21/23 STATUS: JOSE A GOMEZ NUM: [id number] GREG: 12/20/23-1507 [facility] [place] DR: Charli Hart MD ENTERED: 12/21/23-08 57 SP TYPE: Surgical OTHR DR: Bishop Hansen MD ORDERED: HE Stain/3, Gross Micro L4 Diagnosis Jejunum, biopsy: Sma ll bowel mucosa with no specific change. Clinical History Pre-Op Dx: Abnormal imaging on CT scan Post-Op Dx: Hiatal hernia Microscopic Description Microscopic sections reviewed. Material Received Bx of jejunum Gross Description Received in formalin are 3 graham 3-4 mm soft tissue fragments, totally submitted in cassette A1. ([place]) Copies To: Bishop Hansen MD [facility] [address] [place] [address] [address] [place] [phone] Charli Hart MD [facility] [address] [place] [address] --- Signed (signature on file) Socorro [place] 12/24/23 1522 --- END OF REPORT Reason For Referral No Information Medications Medication [...] Gabapentin 100 MG Oral for 90 Active Immunizations Vaccine Route Administration Date Status Comme nts Influenza Unknown 04/23/2024 Refused Problems Problem Type SNOMED Code ICD Code Onset Dates Problem Status W/U Status Risk Notes Problem Colon cancer screening (139930823) Colon cancer screening (Z12.11) Active confirmed Problem Gastro-esophageal reflux disease without esophagitis (967558816) Gastro-esophag eal reflux disease without esophagitis (K21.9) Active confirmed Problem Epigastric pain (62060246) Abdominal pain, epigastric (R10.13) Active confirmed Problem Benign neoplasm of stomach (63228403) Gastric polyps (K31.7) Active confirmed Problem Imaging of gastrointestinal tract abnormal (604018054) Abnormal CT scan, small bowel (R93.3) Active confirmed Problem Gastroesophageal reflux disease (594389290) Chronic GERD (K21.9) Active confirmed Vital Signs Temperature 96.9 degrees Fahrenheit 04/23/2024 Blood pressure diastolic 00 mm Hg 04/23/2024 Height 66.5 in 04/23/2024 Blood pressure systolic 000 mm Hg 04/23/2024 Weight 115 lb 6 oz lbs 04/23/2024 BMI 18.34 kg/m2 04/23/2024 Encounters Encounter Location Date Provider Diagnosis [facility] [address] [place] [phone] 12/20/2023 Charli Hart 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 ; Abn findings-GI tract R93.3 ; Gastro-esophageal reflux disease without esophagitis K21.9 ; Gastric polyps K31.7 and Weight loss R63.4 [facility] [address] [place] [phone] 12/18/2023 Charli Hart Abdominal pain, epigastric R10.13 ; Abnormal CT scan, small bowel R93.3 and Chronic GERD K21.9 [facility] [address] [place] [address] 04/23/[address] scan, small bowel R93.3 ; Chronic GERD K21.9 and Colon cancer screening Z12.11 [facility] [address] [place] [address] 12/06/2023 [facility] [address] [place] [address] 12/19/2023 Charli Hart [facility] [address] [place] [address] 01/05/2024 Charli Hart Assessments Encounter Date Diagnosis (ICD Code) Assessment Notes Treatment Notes Treatment Clinical Notes Section Notes 12/20/2023 Abn findings-GI tract (ICD-10 - R93.3) 12/20/2023 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 It does appear that she has had some clinical improvement compared to her initial symptoms in the Spring. The CT scan findings in regard to the small bowel are rather nonspecific but I do think warrant some further investigation to try to definitively exclude any pathology such as Crohn's disease. I shall schedule her for an upper endoscopy but use a colonoscope to try to get down as far as possible into the small bowel and see if there is any pathology that would correlate with the CT scan findings. I will also obtain biopsies to rule out celiac disease. Full consent was obtained from her for the endoscopy, including risks of bleeding and perforation. The procedure will be done with monitored anesthesia care. I also want to exclude any gallbladder pathology such as gallstones given the CT scan's inability to get a good look at the gallbladder and her ongoing upper abdominal complaints.I shall order an ultrasound in that regard. I shall also repeat some laboratories and also check laboratories for sedimentation rate, C-reactive protein, and celiac disease laboratories. If the workup is completely negative and her symptoms continue to stabilize and improve we can then observe things. However, if there remains any questions we could further evaluate things with either a small bowel series, MRI of the small bowel with enterography, and/or a small bowel video capsule study. I did advise Socorro to contact me in the interim if she develops any worsening problems or if has any questions. Socorro was comfortable with this plan. Thank you again for allowing me to participate in Socorro's care. I shall continue to keep you advised of her progress. 12/18/[address] scan, small bowel (ICD-10 - R93.3) Overall, Socorro appears well from a clinical standpoint at the present time. It does appear that she has had some clinical improvement compared to her initial symptoms in the Spring. The CT scan findings in regard to the small bowel are rather nonspecific but I do think warrant some further investigation to try to definitively exclude any pathology such as Crohn's disease. I shall schedule her for an upper endoscopy but use a colonoscope to try to get down as far as possible into the small bowel and see if there is any pathology that would correlate with the CT scan findings. I will also obtain biopsies to rule out celiac disease. Full consent was obtained from her for the endoscopy, including risks of bleeding and perforation. The procedure will be done with monitored anesthesia care. I also want to exclude any gallbladder pathology such as gallstones given the CT scan's inability to get a good look at the gallbladder and her ongoing upper abdominal complaints.I shall order an ultrasound in that regard. I shall also repeat some laboratories and also check laboratories for sedimentation rate, C-reactive protein, and celiac disease laboratories. If the workup is completely negative and her symptoms continue to stabilize and improve we can then observe things. However, if there remains any questions we could further evaluate things with either a small bowel series, MRI of the small bowel with enterography, and/or a small bowel video capsule study. I did advise Socorro to contact me in the interim if she develops any worsening problems or if has any questions. Socorro was comfortable with this plan. Thank you again for allowing me to participate in Socorro's care. I shall continue to keep you advised of her progress. 04/23/[address] scan, small bowel (ICD-10 [...] to keep you advised of her progress. 12/20/2023 Gastro-esophage al reflux disease without esophagitis (ICD-10 - K21.9) 12/18/2023 Chronic GERD (ICD-10 - K21.9) Overall, Socorro appears well from a clinical standpoint at the present time. It does appear that she has had some clinical improvement compared to her initial symptoms in the Spring. The CT scan findings in regard to the small bowel are rather nonspecific but I do think warrant some further investigation to try to definitively exclude any pathology such as Crohn's disease. I shall schedule her for an upper endoscopy but use a colonoscope to try to get down as far as possible into the small bowel and see if there is any pathology that would correlate with the CT scan findings. I will also obtain biopsies to rule out celiac disease. Full consent was obtained from her for the endoscopy, including risks of bleeding and perforation. The procedure will be done with monitored anesthesia care. I also want to exclude any gallbladder pathology such as gallstones given the CT scan's inability to get a good look at the gallbladder and her ongoing upper abdominal complaints.I shall order an ultrasound in that regard. I shall also repeat some laboratories and also check laboratories for sedimentation rate, C-reactive protein, and celiac disease laboratories. If the workup is completely negative and her symptoms continue to stabilize and improve we can then observe things. However, if there remains any questions we could further evaluate things with either a small bowel series, MRI of the small bowel with enterography, and/or a small bowel video capsule study. I did advise Socorro to contact me in the interim if she develops any worsening problems or if has any questions. Socorro was comfortable with this plan. Thank [...] to keep you advised of her progress. 12/20/2023 Gastric polyps (ICD-10 - K31.7) 12/20/2023 Weight loss (ICD-10 - R63.4) 12/18/2023 Other You will be due for a colonoscopy for screening purposes in 2024. Overall, Socorro appears well from a clinical standpoint at the present time. It does appear that she has had some clinical improvement compared to her initial symptoms in the Spring. The CT scan findings in regard to the small bowel are rather nonspecific but I do think warrant some further investigation to try to definitively exclude any pathology such as Crohn's disease. I shall schedule her for an upper endoscopy but use a colonoscope to try to get down as far as possible into the small bowel and see if there is any pathology that would correlate with the CT scan findings. I will also obtain biopsies to rule out celiac disease. Full consent was obtained from her for the endoscopy, including risks of bleeding and perforation. The procedure will be done with monitored anesthesia care. I also want to exclude any gallbladder pathology such as gallstones given the CT scan's inability to get a good look at the gallbladder and her ongoing upper abdominal complaints.I shall order an ultrasound in that regard. I shall also repeat some laboratories and also check laboratories for sedimentation rate, C-reactive protein, and celiac disease laboratories. If the workup is completely negative and her symptoms continue to stabilize and improve we can then observe things. However, if there remains any questions we could further evaluate things with either a small bowel series, MRI of the small bowel with enterography, and/or a small bowel video capsule study. I did advise Socorro to contact me in the interim if she develops any worsening problems or if has any questions. Socorro was comfortable with this plan. Thank you again for allowing me to participate in Socorro's care. I shall continue to keep you advised of her progress. Plan Of Treatment Pending Test Test Name Order Date LIVER PROFILE 12/18/2023 CRP 12/18/2023 CBC w DIFF 12/18/2023 SED RATE (ESR) 12/18/2023 CELIAC PANEL #10 12/18/2023 Future Test Test Name Order Date COLONOSCOPY 11/17/2014 UPPER GI ENDOSCOPY 12/18/2023 COLONOSCOPY 04/23/2024 Next Appt Details Provider Name:Charli Hart , 10/24/2024 10:00:00 AM, [address] [place] [address] , [place], [place], [phone], Insurance Providers Payer Name Payer Address Payer Phone Subscriber Number Group Number Insured Name Patient Relationship to Insured Coverage Start Date Coverage End Date [place] OF [place] [address] [place] [address] [id number] SOCORRO MAYS Self - patient is the insured [employer] ([facility]) [address] [place] [address] [id number] SOCORRO MAYS Self - patient is the insured Medical (General) History Medical History History ICD Code History of tubular adenomas removed in 1995--neg. colonoscopies in 2003 and 2009 Denies NE,DM,CVA,Lung disease,renal dise ase Seasonal allergies GERD Negative [...]
--- OUTSIDE RECORDS SUMMARY | 2024-10-17 11:52 | XMS_ITS | Patient Health Record ---
Author [facility] [place] Address [address] [place] [address] Care Team Providers Care Case Monitor Name Role Phone Bishop Hansen MD Primary Care Provider Yasir Asher Unavailable [phone] Black, Tiesha Unavailable [phone] Magen Morrison Unavailable [phone] Allergies Allergen (clinical drug ingredient) Drug/Non Drug [...] Problem Acquired hammer toe of right foot (6447496952419 105) Hammer toe of right foot (M20.41) Active confirmed Problem Raynaud's disease (775093600) Raynaud's disease without gangrene (I73.00) Active confirmed Vital Signs Blood pressure diastolic 78 mm Hg 09/04/2024 Height 5ft6in in 09/04/2024 Blood pressure systolic 120 mm Hg 09/04/2024 Weight 115 lbs 09/04/2024 BMI 18.56 kg/m2 09/04/2024 Encounters Encounter Location Date Provider Diagnosis [facility] [address] [address] 08/05/2024 Yasir Josse Raynaud's disease without gangrene I73.00 ; Ingrowing nail L60.0 ; Pain in right toe(s) M79.674 and Cellulitis of toe of right foot L03.[address] [facility] [address] [address] 08/21/2024 Tiesha Black Raynaud's disease without gangrene I73.00 ; Cellulitis of toe of right foot L03.031 ; Ingrowing nail L60.0 and Pain in right toe(s) M79.674 [facility] [address] [place] [address] 09/04/2024 Tiesha Black Raynaud's disease without gangrene I73.00 ; Hammer toe of right foot M20.41 and Pain in right toe(s) M79.674 [facility] [address] [place] [address] 08/04/2024 Magen Morrison [facility] [address] 08/15/2024 [facility] Lo[facility] [address] 08/22/2024 Yasir Loaiza Assessments Encounter Date Diagnosis [...] Medicare National [employer] [address] [place] [address] [id number] Abundiomustapha lewSocorro Self - patient is the insured [employer] ([facility] [employer]) [address] [place] [address] [phone] [id number] [place], Socorro Self - patient is the insured Medical (General) History Medical History History ICD Code Back,Hip,and Knee pain Broken bones Headaches/Eye Migraines Chicken pox Arthritis Surgical History Surgery Date(Month/Year) tonsillectomy 1967 breast mass removal 03/1991
--- OUTSIDE RECORDS SUMMARY | 2024-10-17 11:52 | XMS_ITS ---
Author Organization [facility] Address [address] [place] [address] Care Team Providers Care Research Quality Assurance Specialist Name Role Phone Bishop Hansen MD Primary Care Provider Yasir Asher Unavailable [phone] REASON FOR VISIT open toed shoe Encounters Encounter Location Date Provider Diagnosis [facility] [address] [place] [address] 08/22/2024 Yasir Loaiza Plan Of Treatment No Information Progress Notes * Socorro SALAZAR ADOB: (69 yo F)Acc No.[id number]:08/22/2024 Patient:?Reinaldo SALAZAR :1955???Age:69 Y???Sex:Female Address:[address] [place] [address], [address] * true * Date:? Generated for Florindai keegan/Helena/eTransmitting on:?10/17/2024 11:52 AM EDT
--- OUTSIDE RECORDS SUMMARY | 2024-10-17 11:52 | XMS_ITS ---
Author Organization [facility] roger [place] Address [address] [place] [address] Care Team Providers Care Timekeeper Name Role Phone Bishop Hansen MD Primary Care Provider Yasir Asher Unavailable [phone] Black, Tiesha Unavailable [phone] Allergies Allergen (clinical drug ingredient) Drug/Non Drug [...] 025 Encounters Encounter Location Date Provider Diagnosis [facility] [address] [place] [address] 08/21/2024 Tiesha Mary Raynaud's disease without gangrene [...] * Socorro SALAZAR ADOB: (69 yo F)Acc No.[id number]:08/21/2024 Progress Notes Patient:Reinaldo MURILLO Provider:?Tiesha Mary DPM :1955???Age:69 Y???Sex:Female D ate:08/21/2024 Address:[address] [place] [address] [place]-[id number] Pcp:Bishop Hansen MD Subjective: * Chief Complaints: [...] ?Marital status: . 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 * Medications:?TakingCalcium + D3 600-200 MG-UNIT Tablet [...] DPM Date:?2024 Generated for Theresa allison/Helena/Radha on:?10/17/2024 11:52 AM EDT History and Physical Notes * [...]
[2024-10-22 10:53] VITALS: BMI 18.3
--- NOTE | 2024-10-23 09:39 | P.CONAN_ITS ---
Documented by User: Vane Umanzor NP 10/23/24 09:39 HPI - Anesthesia Eval Consult details Narrative: 69yo F for Colonoscopy PMFSH Active Problems Active Problems: All Active Problems Sinusitis (Acute) Family history of breast cancer (Acute) Increased risk of breast cancer (Acute) Abnormal ultrasound of breast (Acute) Abnormal mammogram of left breast (Acute) Past Medical History Medical History Seasonal allergies Benign breast lumps GERD (gastroesophageal reflux disease) Tubular adenoma Kyphosis Family History Family History Mother Breast cancer, Onset Age: 41 Heart attack Father Stroke HTN (hypertension) Maternal Grandmother Breast cancer, Onset Age: 55 Family history of problems with anesthesia: No Surgical History Surgical History History of esophagogastroduodenoscopy (EGD) History of lumpectomy of right breast Hx of colonoscopy History of Problems with Anesthesia: No Social History Social History Household Members: None Housing: House Are you a primary workforce investment act career manager to a significant other at home: No Do you presently have visiting nurse or other home services: No Alcohol intake: never Patient Tobacco Use Status: Never used Tobacco e-Cigarette/Vaping Use: Never Used Use of substances other than those prescribed or required for medical reasons: No Have you been hit, kicked, punched, or otherwise hurt by someone within the past year? If so, by whom?: No Are you DNR?: No Advance Directives: No Advance Directives Information Provided: No Advance Directives on File: No Patient : No : No Poor oral hygiene: No service: No Current occupational status: retired Cognitive needs: No Hearing needs: No Vision needs: Yes (rx glasses) Meds Allergies Allergy/AdvReac Type Severity Reaction Status Date / Time meperidine [From Demerol] Allergy Intermediate Nausea Verified 10/24/24 09:37 Home Medications ?Medication ?Instructions ?Recorded ?Confirmed ?Last Taken ?Type Claritin 10 mg PO DAILY 12/19/23 10/24/24 Unknown History gabapentin 100 mg tablet 100 mg PO BID 12/19/23 10/24/24 12/20/23 09:30 History omeprazole 20 mg capsule,delayed 20 mg PO BID 12/19/23 10/24/24 10/24/24 History release ibuprofen 200 mg tablet 200 mg PO Q6H PRN Pain 07/18/24 10/24/24 10/17/24 History acetaminophen 500 mg oral powder 500 mg PO DAILY 10/08/24 10/24/24 Unknown History packet (Tylenol Extra Strength) coenzyme Q10 100 mg capsule (Co 100 mg PO DAILY 10/08/24 10/24/24 Unknown History Q-10) flaxseed oil 1,000 mg capsule 1,000 mg PO DAILY 10/08/24 10/24/24 10/17/24 History magnesium 250 mg tablet 500 mg PO DAILY 10/08/24 10/24/24 Unknown History multivitamin (Multiple Vitamins 1 tab PO DAILY 10/08/24 10/24/24 Unknown History tablet) psyllium husk 0.52 gram capsule 1.04 g PO DAILY 10/22/24 10/24/24 Unknown History Exam Height,Weight and Vital Signs: Height 5 ft 6.5 in Weight 52.163 kg Assessment and Plan Assessment Anesthesia Assessment: Chart Reviewed Final Anesthetic Review Family History of Problems with Anesthesia: No History of Problems with Anesthesia: No Documented by User: Nasreen Garcia MD 10/24/24 10:10 [facility] Past Medical History Medical History Seasonal allergies Benign breast lumps GERD (gastroesophageal reflux disease) Tubular adenoma Kyphosis Family History Family History Mother Breast cancer, Onset Age: 41 Heart attack Father Stroke HTN (hypertension) Maternal Grandmother Breast cancer, Onset Age: 55 Surgical History Surgical History History of esophagogastroduodenoscopy (EGD) History of lumpectomy of right breast Hx of colonoscopy Social History Social History Household Members: None Housing: House Are you a primary workforce investment act career manager to a significant other at home: No Do you presently have visiting nurse or other home services: No Alcohol intake: never Patient Tobacco Use Status: Never used Tobacco e-Cigarette/Vaping Use: Never Used Use of substances other than those prescribed or required for medical reasons: No Have you been hit, kicked, punched, or otherwise hurt by someone within the past year? If so, by whom?: No Are you DNR?: No Advance Directives: No Advance Directives Information Provided: No Advance Directives on File: No Patient : No : No Poor oral hygiene: No service: No Current occupational status: retired Cognitive needs: No Hearing needs: No Vision needs: Yes (rx glasses) Meds Allergies Allergy/AdvReac Type Severity Reaction Status Date / Time meperidine [From Demerol] Allergy Intermediate Nausea Verified 10/24/24 09:37 Home Medications ?Medication ?Instructions ?Recorded ?Confirmed ?Last Taken ?Type Claritin 10 mg PO DAILY 12/19/23 10/24/24 Unknown History gabapentin 100 mg tablet 100 mg PO BID 12/19/23 10/24/24 12/20/23 09:30 History omeprazole 20 mg capsule,delayed 20 mg PO BID 12/19/23 10/24/24 10/24/24 History release ibuprofen 200 mg tablet 200 mg PO Q6H PRN Pain 07/18/24 10/24/24 10/17/24 History acetaminophen 500 mg oral powder 500 mg PO DAILY 10/08/24 10/24/24 Unknown History packet (Tylenol Extra Strength) coenzyme Q10 100 mg capsule (Co 100 mg PO DAILY 10/08/24 10/24/24 Unknown History Q-10) flaxseed oil 1,000 mg capsule 1,000 mg PO DAILY 10/08/24 10/24/24 10/17/24 History magnesium 250 mg tablet 500 mg PO DAILY 10/08/24 10/24/24 Unknown History multivitamin (Multiple Vitamins 1 tab PO DAILY 10/08/24 10/24/24 Unknown History tablet) psyllium husk 0.52 gram capsule 1.04 g PO DAILY 05/14/25 05/16/25 Unknown History Exam Airway Mallampati Class: II TM Dist: >3cm Neck ROM: Full Loose/Missing/Broken Teeth: No Heart: RRR Lungs: CTA Assessment and Plan Assessment Anesthesia Assessment: Anesthesia Plan Discussed Final Anesthetic Review NPO: Yes ASA Class: II Final Preanesthetic Review: Meds/Allgs Chart Reviewed, Consent Obtained/Reviewed and Anes Risks/Benef Reviewed Patient Risk: Low Procedure Risk: Low Anesthetic Plan Anesthetic Plan: MAC: Disposition: Standard PACU
[2024-10-24 09:22] VITALS: BMI 18.1
[2024-10-24] MEDS: Albuterol Sulfate (0.083%) 2.5 MG/3 ML VIAL.NEB INHALE (09:45)
[2024-10-24 09:52] VITALS: BP 135/87; PULSE 68; RESP 16; TEMP 36.4; O2SAT 99
[2024-10-24] MEDS: Lactated Ringers 1,000 ML 100 ML IVCONT (09:57)
--- NOTE | 2024-10-24 09:59 | PC.NURSE ---
Patient in preop. Recent sinus infection with 7 days of PO antibiotics complete, finished yesterday. Patient stated I was coughing up green stuff but that's all gone . No productive cough today. SaO2 99% room air. Lung sounds bronchial with faint insp/elsie wheezing. Dr. Garcia made aware. New order for Ventolin Neb preop. Medication administered, tolerated well. Lung sounds clear post treatment. Dr. Garcia aware.
[2024-10-24 11:13] VITALS: BP 104/67; PULSE 71; RESP 18; TEMP 36.6; O2SAT 100
--- NOTE | 2024-10-24 11:20 | PM.OP ---
Brief Operative Note Date of Service: 10/24/24 Pre-op diagnosis: Screening Post-op diagnosis: other (Colon polyps) Procedure: Colonoscopy to the cecum with bx/removal of polyps Surgeon: Charli Hart MD Anesthesia: MAC Was an Tufting Supervisor used for this Procedure?: No Estimated blood loss (mL): 2.0 Pathology: other (A. Cecal polyp B. Polyp at 40cm) Condition: stable Disposition: PACU
[2024-10-24 11:28] VITALS: BP 132/63; PULSE 79; RESP 16; O2SAT 99
[2024-10-24 11:42] VITALS: BP 134/67; PULSE 67; RESP 16; TEMP 36.7; O2SAT 99
--- NOTE | 2024-10-24 11:53 | OP_ITS ---
DATE OF SERVICE: 10/24/2024 SURGEON: Charli Hart MD INDICATIONS: The patient presents for evaluation of colorectal cancer screening. Full consent obtained from her for this, including risks of bleeding and perforation. PREOPERATIVE DIAGNOSIS: Colorectal cancer screening. POSTOPERATIVE DIAGNOSIS: PROCEDURE PERFORMED: Colonoscopy to the cecum with biopsy and removal of polyps. ESTIMATED BLOOD LOSS: COMPLICATIONS: ANESTHESIA: Medication used; monitored anesthesia care. ASSISTANTS: SPECIMENS: POSTOPERATIVE DIAGNOSES: Colorectal cancer screening, colon polyps, diverticulosis, and internal hemorrhoids. DESCRIPTION OF PROCEDURE: The patient was placed in the left lateral decubitus position. The digital rectal exam revealed no abnormalities. The Olympus videopediatric colonoscope was entered into the rectum, advanced to the cecum. Advancement to the cecum was difficult and required abdominal wall pressure. Preparation in various parts of the colon was limited initially due to a lot of liquid stool. However once in the cecum, after copious irrigation in the cecum with suctioning, I was able to visualize cecal pouch with appendiceal orifice and a normal-appearing ileocecal valve. In the cecum, was a flat approximately 5 mm polyp, which was biopsied and removed with cold biopsy forceps in piecemeal fashion. The scope was then slowly withdrawn assessing all mucosal surfaces carefully. Again, there was a lot of residual liquid stool, which took copious irrigation and suctioning, but ultimately preparation became good throughout the colon. At 40 cm, was a flat 3 or 4 mm polyp, which was biopsied and completely removed with cold biopsy forceps. I did not visualize any other polyps, colitis, nor angiodysplasia. There was a mild amount of sigmoid diverticulosis. In the rectum, scope was retroflexed visualizing internal hemorrhoids, but no other pathology. The rectal mucosa appeared normal. The scope was straightened and withdrawn from the patient. She tolerated the procedure well and was returned to recovery area in stable condition. IMPRESSION: 1. Colon polyps. 2. Diverticulosis. 3. Internal hemorrhoids. PLAN: The results of biopsy will be checked. I would recommend a repeat colonoscopy in 5 years for further screening and surveillance. She will otherwise see me on a p.r.n. basis. MD VIKASH Stafford/GIOVANNY / [phone]
== END 2024-10-24 12:15 | disposition home or self-care (01) ==
PROVIDERS: PCP Physician Assistant; Visit Provider Internal Medicine
PROC: 0DJD8ZZ Inspection of Lower Intestinal Tract, Via Natural or Artificial Opening Endoscopic (ICD-10-PCS; CPT 45378; principal; 2024-10-24 10:00)
DX: Z12.11 Encounter for screening for malignant neoplasm of colon (principal); Z86.0101 Personal history of adenomatous and serrated colon polyps; D12.0 Benign neoplasm of cecum; D12.5 Benign neoplasm of sigmoid colon; K57.30 Diverticulosis of large intestine without perforation or abscess without bleeding; K64.8 Other hemorrhoids; K21.9 Gastro-esophageal reflux disease without esophagitis; J30.2 Other seasonal allergic rhinitis; Z79.1 Long term (current) use of non-steroidal anti-inflammatories (NSAID); Z79.51 Long term (current) use of inhaled steroids; Z79.899 Other long term (current) drug therapy; Z88.5 Allergy status to narcotic agent; Z98.890 Other specified postprocedural states
CPT/HCPCS: 45380; 88305; J2003; J2704

== ENCOUNTER 2024-11-19 09:00 | Outpatient (AMB) | payer MEDICARE, OTHER, SELFPAY ==
--- NOTE | 2024-11-19 08:56 | MHC.PC.OV ---
Vital Signs 11/19/24 09:08 Height 5 ft 5 in Weight 113 lb BMI 18.8 BP 128/76 Blood Pressure Location Rt brachial Position Sitting Pulse 67 Pulse Source Pulse Oximeter Temp 97.8 F Temp Source Axillary Pulse Oximetry (%) 99 Oxygen Delivery Method Room Air Intake Visit Reasons: sinus infection & weezing Ship Worker Required: No Accompanied by: Self / Same As Patient Allergies meperidine [From Demerol] Allergy (Intermediate, Verified 11/19/24 09:43) Nausea Medication List - Last Reconciled 11/19/24 by Greg Cazares MD acetaminophen (Tylenol Extra Strength) 500 mg PO DAILY arginine (L-arginine) 2 pils once a day orally; azithromycin take 500 mg today (day 1), then 250 mg for 4 days (days 2-5) PO calcium carbonate-vitamin D3 600 mg-12.5 mcg (500 unit) (Calcium with Vit D3) caps PO [Claritin 10 mg PO DAILY] coenzyme Q10 (Co Q-10) 100 mg PO DAILY docusate sodium 100 mg PO BID flaxseed oil 1,000 mg PO DAILY fluticasone propionate 50 mcg/actuation (Flonase Allergy Relief) 1 spray intranasal DAILY gabapentin 100 mg PO BID ibuprofen 200 mg PO Q6H PRN magnesium 500 mg PO DAILY montelukast (Singulair) 10 mg PO BEDTIME multivitamin (Multiple Vitamins tablet) 1 tab PO DAILY omeprazole 20 mg PO DAILY psyllium 1 tbsp PO DAILY Tobacco use date assessed: 11/19/24 Fall risk assessment: No Falls in past year Last assessed Fall Risk: 11/19/24 Dental Screening Dental Screen Date: 11/19/24 Did you have a dental visit in the last 12 months?: Yes Did you have a dental problem in the last 6 months where you did not have access to dental care?: No PFSH Medical History Seasonal allergies Benign breast lumps GERD (gastroesophageal reflux disease) Tubular adenoma Kyphosis Surgical History History of esophagogastroduodenoscopy (EGD) History of lumpectomy of right breast Hx of colonoscopy (~10/24/24) Family History Mother Breast cancer, Onset Age: 41 Heart attack Father Stroke HTN (hypertension) Maternal Grandmother Breast cancer, Onset Age: 55 Social History Household Members: None Housing: House Are you a primary child care specialist to a significant other at home: No Do you presently have visiting nurse or other home services: No Alcohol intake: never Patient Tobacco Use Status: Never used Tobacco e-Cigarette/Vaping Use: Never Used service: No Current occupational status: retired Cognitive needs: No Hearing needs: No Vision needs: Yes (rx glasses) Female Reproductive History Menstrual Age of Menarche: 12 Questionnaire PHQ-9 Over the last 2 weeks, how often have you been bothered by any of the following problems? 1. Little interest or pleasure in doing things: not at all 2. Feeling down, depressed, or hopeless: not at all 3. Trouble falling or staying asleep, or sleeping too much: not at all 4. Feeling tired or having little energy: not at all 5. Poor appetite or overeating: not at all 6. Feeling bad about yourself - or that you are a failure or have let yourself or your family down: not at all 7. Trouble concentrating on things, such as reading the newspaper or watching television: not at all 8. Moving or speaking so slowly that other people could have noticed. Or the opposite - being so fidgety or restless that you have been moving around a lot more than usual: not at all 9. Thoughts that you would be better off or of hurting yourself in some way: not at all Total score: 0 Source: Developed by Drs. Charli Richards, Dodie Kimbrough, Houston Delgadillo and colleagues, with an educational adin from [employer]. Thrive Questionnaire Date Thrive assessed: 11/19/24 I am a: Patient Within the past 12 months, did the food you bought not last and you didn't have the money to get more?: Never true Within the past 12 months, did you worry whether your food would run out before you got money to buy more?: Never true Do you have trouble paying for medicines?: No Do you have trouble getting transportation to medical appointments?: No Do you have trouble paying your heating and electricity bill?: No Do you have trouble taking care of your child, family member or friend?: No Do you have trouble with day-to-day activities such as bathing, preparing meals, shopping, managing finances, etc.?: No Are you currently unemployed and looking for a job?: No Are you interested in more education?: No THRIVE Score: 0 AUDIT C Alcohol Use Questionnaire (AUDIT-C) 1. How often do you have a drink containing alcohol?: Never 3. How often do you have six or more drinks on one occasion?: Never Total Score: 0 KELLE-7 AMB Questionnaire KELLE-7 Date KELLE - 7 assessed: 11/19/24 Feeling nervous, anxious, or on edge: 0 = Not at all Not being able to stop or control worryin = Not at all Worrying too much about different things: 0 = Not at all Trouble relaxin = Not at all Being so restless that it is hard to sit still: 0 = Not at all Becoming easily annoyed or irritable: 0 = Not at all Feeling afraid as if something awful might happen: 0 = Not at all Total KELLE-7 score (0-4 normal; 5-9 mild; 10-14 moderate; 15-21 severe): 0 Source: Developed by Drs. Charli Richards, Dodie Kimbrough, Houston Delgadillo and colleagues, with an educational adin from [employer]. Physical exam (Primary Care) Vital Signs: Last Vital Signs Temp 97.8 F 11/19/24 09:08 Pulse 67 11/19/24 09:08 BP 128/76 11/19/24 09:08 Pulse Ox 99 11/19/24 09:08 Oxygen Delivery Method Room Air 11/19/24 09:08 BMI result Body Mass Index 18.8 Tobacco/Smoking Status: Tobacco use Status Tobacco use date assessed 11/19/24 11/19/24 08:58 Patient Tobacco Use Status Never used Tobacco 11/19/24 08:58 e-Cigarette/Vaping Use Never Used 11/19/24 08:58 PHQ-9: PHQ-9 Score PHQ-9: Total score 0 11/19/24 08:58 Thrive Assessment: Date of Thrive Assessment Date Thrive assessed 11/19/24 11/19/24 08:58 Coding Level of Care Code Est Pt Level 4 (74103) Complex EM visit Add On G2211 Diagnoses Sinusitis J32.9 Assessment & Plan Assessment & Plan (1) Sinusitis: Code(s): J32.9 - Chronic sinusitis, unspecified Category: Medical Plan: History of Present Illness - The patient is a 69-year-old female presenting with persistent sinus issues. - Sinus symptoms began at the end of September, with nasal congestion and post-nasal drip with an unpleasant taste. - Takes Claritin regularly; has not been diagnosed with specific allergies but experienced sinus-related symptoms. - Completed a 7-day course of antibiotics, which initially alleviated symptoms but they reappeared. - Wheezing identified during a routine colonoscopy on October 24, requiring a breathing treatment. - The patient was unaware of the wheezing, has no known respiratory conditions, but experiences mild shortness of breath intermittently. Social History Review of Systems - Respiratory: Reports intermittent shortness of breath, denies chronic cough. - Ear/Nose/Throat: Reports nasal congestion and post-nasal drip with bad taste; denies nasal discharge of yellow or green color. - General: Denies current medications apart from Claritin. Physical Exam General: Cooperative and healthy appearing Nutritional Appearance: Well nourished Orientation/consciousness: Patient oriented x3 Limitations: No limitations Head: Normal to inspection General: Appearance normal, both eyes and all related structures Neck: Normal visual inspection Chest: Normal palpation of entire chest wall Respiratory: Wheezing detected previously, but none currently. No shortness of breath. ormal respiratory effort Neurology: Patient oriented x3 Results - Colonoscopy on October 24 revealed polyps; patient requires follow-up. - Wheezing was detected during colonoscopy pre-procedure assessment. Plan 1. Chronic Sinusitis - Administered another course of antibiotics and a nasal spray as part of treatment strategy. - Singulair and continuation of Claritin included in management plan to address suspected underlying allergy issues. 2. Wheezing - Currently, no wheezing noted; no specific treatment initiated for respiratory symptoms at this time. - Continue to observe for any developments. Discussion Notes During the consultation, I discussed the persistent sinus problems with the patient, explaining the suspected chronic sinusitis and the plan to treat with another round of antibiotics, nasal spray, and Singulair. I clarified that Claritin is suitable for continued use and explained the role of Flonase as it contains a mild steroid safe for local use. We also reviewed the concern of wheezing noted during a colonoscopy, confirmed the absence of current respiratory distress, and advised continued monitoring. I assured the patient that the proposed treatments aim to stabilize allergic responses and reduce congestion, emphasizing the importance of compliance and timely follow-up for her sinus condition. Patient Instructions - Take prescribed antibiotics for 5 days as directed. - Use nasal spray one squirt per nostril each morning. - Start taking Singulair daily as prescribed. - Continue taking Claritin for allergy control. - Monitor for symptoms such as persistent shortness of breath or wheezing, and report if they occur. - Follow up for further evaluation if sinus symptoms persist or worsen. - Schedule any follow-ups needed for recent colonoscopy findings with your production sanitizer. Medications: New azithromycin take 500 mg today (day 1), then 250 mg for 4 days (days 2-5) PO 6 tabs 0RF fluticasone propionate 50 mcg/actuation (Flonase Allergy Relief) administer into each nostril 1 spray intranasal DAILY 9.9 mL 1RF montelukast (Singulair) 10 mg PO BEDTIME 30 tabs 1RF
[2024-11-19 09:08] VITALS: BP 128/76; PULSE 67; TEMP 36.6; O2SAT 99; BMI 18.8
--- OUTSIDE RECORDS SUMMARY | 2024-11-19 09:27 | XMS_ITS ---
Author Organization [facility] Address [address] [place] [address] Care Team Providers Care Electrical Controls Designer Name Role Phone Bishop Hansen MD Primary Care Provider Unavaila Charli Oro [phone] REASON FOR VISIT antibiotic Encounters Encounter Location Date Provider Diagnosis [facility] [address] [place] [address] 10/20/2024 Charli Hart Plan Of Treatment No Information Progress Notes * SABINA NEWDOB:12/1954 (69 yo F)Acc No.[id number]:10/20/2024 Patient:?GEMA NEW :1955???Age:69 Y???Sex:Female Address:[address] [place] [id number] * true * Date:? Generated for Theresa allison/Helena/eTransmitting on:?11/19/2024 09:26 AM EDT
== END 2024-11-19 10:35 | disposition home or self-care (01) ==
LOC: HO.HMCHD 09:01
PROVIDERS: PCP Physician Assistant; Visit Provider Internal Medicine
DX: J32.9 Chronic sinusitis, unspecified (principal)

== ENCOUNTER → 2024-11-19 09:00 | Outpatient (BNVA) | payer MEDICARE, OTHER, SELFPAY | PROVIDERS: PCP Physician Assistant; Visit Provider Internal Medicine | DX: J32.9 Chronic sinusitis, unspecified (principal) | CPT/HCPCS: 99212 ==

== ENCOUNTER 2024-12-22 15:01 | Outpatient (AMB) | payer MEDICARE, OTHER, SELFPAY ==
--- OUTSIDE RECORDS SUMMARY | 2023-12-20 10:20 | XMS_ITS ---
Author Organization [facility] Address [address] [place] [address] Care Team Providers Care Cloth Coverer Name Role Phone Tyrone (RETIRED) Bishop ALVARADO Primary Care Provide r Unavailable Charli Hart Unavailable [phone] REASON FOR VISIT epigastric pain,abn ct scan sm bwl Problems Problem Type SNOMED Code ICD Code Onset Dates Problem Status W/U Status Risk Notes Problem Gastro-esophagea l reflux disease without esophagitis (174666329) Gastro-esophage al reflux disease without esophagitis (K21.9) Active confirmed Problem Benign neoplasm of stomach (11471715) Gastric polyps (K31.7) Active confirmed Encounters Encounter Location Date Provider Diagnosis [facility] [place] [place] Out[facility] [address] [place], [place] [phone] 12/20/2023 Charli Hart Other specified functional intestinal [...] No Information Progress Notes * DIANE NEWB:12/1954 (69 yo F)Acc No.[id number]:12/20/2023 EGD/MAC Patient: SABINA TOM Provider: Castro Hart MD :1955 A ge:68 Y S ex:Female Date:12/20/2023 Address:[address] [place] [address] Pcp:Bishop Hansen (RETIRED )MD Subjective: * Chief [...] Date: 12/20/2023 Generated for Theresa allison/Helena/Arletteitting on: 12/22/2024 04:16 PM EDT
--- NOTE | 2024-12-22 15:08 | MHC.PC.OV ---
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 Required: No Accompanied by: Self / Same As Patient Allergies meperidine (From Demerol) Allergy (Intermediate, Verified 12/22/24 15:09) Nausea Tobacco use date assessed: 12/22/24 Fall risk assessment: No Falls in past year Last assessed Fall Risk: 12/22/24 Dental Screening Dental Screen Date: 12/22/24 Did you have a dental visit in the last 12 months?: Yes Did you have a dental problem in the last 6 months where you did not have access to dental care?: No [facility] History Seasonal allergies Benign breast lumps GERD (gastroesophageal reflux disease) Tubular adenoma Kyphosis Surgical History History of esophagogastroduodenoscopy (EGD) History of lumpectomy of right breast Hx of colonoscopy (~10/24/24) Family History (Updated 12/22/24 @ 15:16 by Anjelica Alfonso MA) Mother Breast cancer, Onset Age: 41 Heart attack Father Stroke HTN (hypertension) Maternal Grandmother Breast cancer, Onset Age: 55 Social History Household Members: None Housing: House Are you a primary home care associate to a significant other at home: No Do you presently have visiting nurse or other home services: No Alcohol intake: never Patient Tobacco Use Status: Never used Tobacco e-Cigarette/Vaping Use: Never Used service: No Current occupational status: retired Cognitive needs: No Hearing needs: No Vision needs: Yes (rx glasses) Female Reproductive History Menstrual Age of Menarche: 12 Questionnaire PHQ-9 Over the last 2 weeks, how often have you been bothered by any of the following problems? 1. Little interest or pleasure in doing things: not at all 2. Feeling down, depressed, or hopeless: not at all 3. Trouble falling or staying asleep, or sleeping too much: not at all 4. Feeling tired or having little energy: not at all 5. Poor appetite or overeating: not at all 6. Feeling bad about yourself - or that you are a failure or have let yourself or your family down: not at all 7. Trouble concentrating on things, such as reading the newspaper or watching television: not at all 8. Moving or speaking so slowly that other people could have noticed. Or the opposite - being so fidgety or restless that you have been moving around a lot more than usual: not at all 9. Thoughts that you would be better off or of hurting yourself in some way: not at all Total score: 0 Source: Developed by Drs. Charli Richards, Dodie Kimbrough, Houston Delgadillo and colleagues, with an educational adin from [employer]. Thrive Questionnaire Date Thrive assessed: 12/22/24 I am a: Patient Within the past 12 months, did the food you bought not last and you didn't have the money to get more?: Never true Within the past 12 months, did you worry whether your food would run out before you got money to buy more?: Never true Do you have trouble paying for medicines?: No Do you have trouble getting transportation to medical appointments?: No Do you have trouble paying your heating and electricity bill?: No Do you have trouble taking care of your child, family member or friend?: No Do you have trouble with day-to-day activities such as bathing, preparing meals, shopping, managing finances, etc.?: No Are you currently unemployed and looking for a job?: No Are you interested in more education?: No THRIVE Score: 0 AUDIT C Alcohol Use Questionnaire (AUDIT-C) 1. How often do you have a drink containing alcohol?: Never 3. How often do you have six or more drinks on one occasion?: Never Total Score: 0 KELLE-7 AMB Questionnaire KELLE-7 Date KELLE - 7 assessed: 12/22/24 Feeling nervous, anxious, or on edge: 0 = Not at all Not being able to stop or control worryin = Not at all Worrying too much about different things: 0 = Not at all Trouble relaxin = Not at all Being so restless that it is hard to sit still: 0 = Not at all Becoming easily annoyed or irritable: 0 = Not at all Feeling afraid as if something awful might happen: 0 = Not at all Total KELLE-7 score (0-4 normal; 5-9 mild; 10-14 moderate; 15-21 severe): 0 Source: Developed by Drs. Charli Richards, Dodie Kimbrough, Houston Delgadillo and colleagues, with an educational adin from [employer]. Physical exam (Primary Care) Vital Signs: Last Vital Signs Temp 97.4 F 12/22/24 15:09 Pulse 61 12/22/24 15:09 BP 130/74 12/22/24 15:09 Pulse Ox 99 12/22/24 15:09 Oxygen Delivery Method Room Air 12/22/24 15:09 BMI result Body Mass Index 18.6 Tobacco/Smoking Status: Tobacco use Status Tobacco use date assessed 12/22/24 12/22/24 15:10 Patient Tobacco Use Status Never used Tobacco 12/22/24 15:10 e-Cigarette/Vaping Use Never Used 12/22/24 15:10 PHQ-9: PHQ-9 Score PHQ-9: Total score 0 12/22/24 15:16 Thrive Assessment: Date of Thrive Assessment Date Thrive assessed 12/22/24 12/22/24 15:16 Coding Level of Care Code Est Pt Level 4 (95834) Complex EM visit Add On G2211 Diagnoses Inguinal lymphadenopathy R59.0 Assessment & Plan Assessment & Plan (1) Inguinal lymphadenopathy: Code(s): R59.0 - Localized enlarged lymph nodes Plan: History of Present Illness - The patient is a 69-year-old female presenting with bilateral groin lumps. - The lumps were first noticed about three to four weeks ago during a shower. - There is no associated pain with the lumps. - The patient has experienced weight loss, previously weighing 125 pounds and currently weighing 112 pounds. - The weight loss is attributed to a cholesterol diet, and the patient finds it difficult to regain weight. - The patient has a history of kyphosis and scoliosis, which became more pronounced later in life. - No treatment was offered during childhood, and the patient regrets not seeking treatment earlier. - The patient is retired, having worked at [employer] for 43 years. - Preventative care includes [facility] mamm[facility]. Social History - The patient is retired and previously worked at [employer] for 43 years. Review of Systems - General: Denies pain associated with groin lumps. - Weight: Reports weight loss from 125 pounds to 112 pounds. - Musculoskeletal: Reports history of kyphosis and scoliosis. Physical Exam General: Cooperative and healthy appearing Nutritional Appearance: Well nourished Orientation/consciousness: Patient oriented x3 Limitations: No limitations Head: Normal to inspection General: Appearance normal, both eyes and all related structures Neck: Normal visual inspection Chest: Normal palpation of entire chest wall Respiratory: N ormal respiratory effort Neurology: Patient oriented x3, kyphosis and scoliosis noted Back: Significant kyphoscoliosis Abd: Bilateral inguinal lymph nodes palpable. Discrete, not painful and firm Results Plan 1. Localized enlarged lymph nodes R59.0 US of the abdomen will be obtained. Will proceed based on the results. Discussion Notes Patient Instructions Orders: Orders US pelvic limited 12/22/24 R59.0 - Localized enlarged lymph nodes
[2024-12-22 15:09] VITALS: BP 130/74; PULSE 61; TEMP 36.3; O2SAT 99; BMI 18.6
--- OUTSIDE RECORDS SUMMARY | 2024-12-22 16:16 | XMS_ITS | Patient Health Record ---
Author Organization [facility] [place] Address [address] [place] [address] Care Team Providers Care Precision Thread Grinder Operator Name Role Phone Bishop Hansen MD Primary Care Provider Yasir Asher Unavailable [phone] BlackTiesha Unavailable [phone] Magen Morrison Unavailable [phone] Allergies Allergen (clinical drug ingredient) Drug/Non Drug [...] 100 MG 1 capsule Orally Once a day; Duration: 10 day(s) 8 days Not-Taking CoQ10 100 MG as directed Orally Active Meloxicam 15 MG 1 tablet Orally Once a day; Duration: 30 day(s) Not-Taking Flaxseed Oil 1000 MG as directed Orally Active Ranitidine Not-Takin g Gabapentin Active Loratadine 10 MG 1 tablet Orally Once a day; Duration: 30 day(s) Not-Taking Stool Softener 100 MG 1 capsule as neede d Orally Once a day; Duration: 30 day(s) Active Tylenol Active Calcium + D3 600-200 MG-UNIT 1 tablet with a meal Orally Once a day; Duration: 30 day(s) Active Doxycycline Hyclate 100 MG 1 capsule Orally Twice a day; Duration: 7 days Active Centrum Silver Activ e Cephalexin 500 MG 1 capsule Orally twi ce a day; Duration: 10 days 08/21/2024 Active Zolpidem Tartrate 5 [...] Problem Status W/U Status Risk Notes Problem Hammer toe of right foot (M20.41) Active confirmed Problem Raynaud's disease (809036943) Raynaud's disease without gangrene (I73.00) Active confirmed Vital Signs Blood pressure diastolic 78 mm Hg 09/04/2024 Height 5ft6in in 09/04/2024 Blood pressure systolic 120 mm Hg 09/04/2024 Weight 115 lbs 09/04/2024 BMI 18.56 kg/m2 09/04/2024 Encounters Encounter Location Date Provider Diagnosis [facility] [address] [address] 08/05/2024 Yasir Josse Raynaud's disease without gangrene I73.00 ; Ingrowing nail L60.0 ; Pain in right toe(s) M79.674 and Cellulitis of toe of right foot L03.031 [facility] [address] 08/21/2024 Tiesha Black Raynaud's disease without gangrene I73.00 ; Cellulitis of toe of right foot L03.031 ; Ingrowing nail L60.0 and Pain in right toe(s) M79.674 [facility] [address] [place] [address] 09/04/2024 Tiesha Black Raynaud's disease without gangrene I73.00 ; Hammer toe of right foot M20.41 and Pain in right toe(s) M79.674 [facility] [address] [place] [address] 08/04/2024 Magen Morrison [facility] [address] 08/15/2024 [facility] [address] 08/22/2024 Yasir Loaiza Assessments Encounter Date Diagnosis [...] Medicare [employer] [address] [place] [address] [id number] Zamzam lewSocorro Self - patient is the insured [employer]agne [employer] ([employer]) [address] [place] [address] [phone] [id number] [place] n, [place] Self - patient is the insured Medical (General) History Medical History History ICD Code Back,Hip,and Knee pain Broken bones Headaches/Eye Migraines Chicken pox Arthritis Surgical History Surgery Date(Month/Year) tonsillectomy 1967 breast mass removal 03/1991
== END 2024-12-22 16:15 | disposition home or self-care (01) ==
LOC: HO.HMCHD 15:01
PROVIDERS: PCP Physician Assistant; Visit Provider Internal Medicine
DX: R59.0 Localized enlarged lymph nodes (principal)

== ENCOUNTER → 2024-12-22 15:01 | Outpatient (BNVA) | payer MEDICARE, OTHER, SELFPAY | PROVIDERS: PCP Physician Assistant; Visit Provider Internal Medicine | DX: R59.0 Localized enlarged lymph nodes (principal) | CPT/HCPCS: 99212 ==

== ENCOUNTER 2025-01-19 15:18 | Outpatient (REF) | payer MEDICARE, OTHER, SELFPAY ==
--- OUTSIDE RECORDS SUMMARY | 2023-12-20 10:20 | XMS_ITS ---
Author Organization [facility] Address [address] [place] [address] Care Team Providers Care Food Safety Auditor Name Role Phone Tyrone (RETIRED) Bishop ALVARADO Primary Care Provide r Unavailable Charli Hart Unavailable [phone] REASON FOR VISIT epigastric pain,abn ct scan sm bwl Problems Problem Type SNOMED Code ICD Code Onset Dates Problem Status W/U Status Risk Notes Problem Gastro-esophagea l reflux disease without esophagitis (674175115) Gastro-esophage al reflux disease without esophagitis (K21.9) Active confirmed Problem Benign neoplasm of stomach (86667728) Gastric polyps (K31.7) Active confirmed Encounters Encounter Location Date Provider Diagnosis [facility] [address] [place], [place] [phone] 12/20/2023 Charli Hart Other specified functional intestinal [...] Notes * DIANE NEWB:12/1954 (70 yo F)Acc No.[id number]:12/20/2023 EGD/MAC Patient: SABINA TOM Provider: Castro Hart MD :1955 A ge:68 Y S ex:Female Date:12/20/2023 Address:[address] [place] [address] Pcp:Bishop Hansen (RETIRED )MD Subjective: * Chief [...] Date: 12/20/2023 Generated for Theresa allison/Helena/Arletteitting on: 01/19/2025 03:33 PM EDT
--- NOTE | ~2025-01-19 | US_ITS ---
EXAMINATION: US PELVIS LIMITED HISTORY: R59.0 - Localized enlarged lymph nodes COMPARISON: There are no prior studies available for comparison. TECHNIQUE: Sonographic examination of the bilateral inguinal regions was performed. FINDINGS: On the right, multiple normal-appearing lymph nodes are identified measuring 14 x 4 x 8 mm, 12 x 5 x 9 mm, 18 x 5 x 13 mm, and 6 x 4 x 5 mm. All lymph nodes demonstrate prominent fatty selin and thin cortices. On the left, multiple normal-appearing lymph nodes are identified measuring 12 x 5 x 14 mm, 9 x 6 x 8 mm, and 18 x 5 x 9 mm. All lymph nodes demonstrate prominent fatty selin and thin cortices. US/US pelvic limited IMPRESSION: Multiple normal-appearing lymph nodes are identified in the bilateral inguinal regions, as described. Electronically signed by: Charli Gill MD 01/19/2025 03:53 PM EDT
--- OUTSIDE RECORDS SUMMARY | 2025-01-19 15:34 | XMS_ITS | Patient Health Record ---
Author Organization [facility] [place] Address [address] [place] [address] Care Team Providers Care Cold Roller Name Role Phone Bishop Hansen MD Primary Care Provider Yasir Asher Unavailable [phone] BlackTiesha Unavailable [phone] Magen Morrison Unavailable [phone] Allergies Allergen (clinical drug ingredient) Drug/Non Drug [...] Problem Acquired hammer toe of right foot ([id number] 105) Hammer toe of right foot (M20.41) Active confirmed Problem Raynaud's disease (302637328) Raynaud's disease without gangrene (I73.00) Active confirmed Vital Signs Blood pressure diastolic 78 mm Hg 09/04/2024 Height 5ft6in in 09/04/2024 Blood pressure systolic 120 mm Hg 09/04/2024 Weight 115 lbs 09/04/2024 BMI 18.56 kg/m2 09/04/2024 Encounters Encounter Location Date Provider Diagnosis [facility] [address] [address] 08/05/2024 Yasir Josse Raynaud's disease without gangrene I73.00 ; Ingrowing nail L60.0 ; Pain in right toe(s) M79.674 and Cellulitis of toe of right foot L03.[address] [facility] [address] 08/21/2024 Tiesha Black Raynaud's disease without gangrene I73.00 ; Cellulitis of toe of right foot L03.031 ; Ingrowing nail L60.0 and Pain in right toe(s) M79.674 [facility] [address] 09/04/2024 Tiesha Black Raynaud's disease without gangrene I73.00 ; Hammer toe of right foot M20.41 and Pain in right toe(s) M79.[address] [address] 08/04/2024 [facility] [address] 08/15/2024 [facility] [address] 08/22/2024 Yasir Loaiza Assessments Encounter Date Diagnosis [...] Medicare National [employer] [address] [place] [address] [id number] [place] nCharleySocorro Self - patient is the insured [facility] ([facility] [address] [place] [address] [id number] [place], [place] Self - patient is the insured Medical (General) History Medical History History ICD Code Back,Hip,and Knee pain Broken bones Headaches/Eye Migraines Chicken pox Arthritis Surgical History Surgery Date(Month/Year) tonsillectomy 1967 breast mass removal 03/1991
== END 2025-01-19 15:19 | disposition home or self-care (01) ==
LOC: HO.HMGCX 15:18
PROVIDERS: PCP Internal Medicine; Visit Provider Internal Medicine
DX: R59.0 Localized enlarged lymph nodes (principal)
CPT/HCPCS: 76857

== ENCOUNTER → 2025-01-19 15:36 | Outpatient (BNV) | payer MEDICARE, OTHER, SELFPAY | PROVIDERS: PCP Internal Medicine; Visit Provider Radiology Diagnostic Radiology | DX: R59.0 Localized enlarged lymph nodes (principal) | CPT/HCPCS: 76857 ==

== ENCOUNTER 2025-04-20 09:55 | Outpatient (AMB) | payer MEDICARE, OTHER, SELFPAY ==
[2025-04-20 10:03] VITALS: BP 149/66; PULSE 62; RESP 14; TEMP 36.4; O2SAT 98; BMI 18.8
--- NOTE | 2025-04-20 10:03 | MHC.PC.OV ---
Vital Signs 04/20/25 10:03 Height 5 ft 5 in Weight 113 lb BMI 18.8 BP 149/66 H Blood Pressure Location Rt brachial Position Sitting Respiration 14 Pulse 62 Pulse Source Pulse Oximeter Temp 97.5 F Temp Source Temporal Artery Scan Pulse Oximetry (%) 98 Oxygen Delivery Method Room Air Intake Visit Reasons: 4 month f/u - see comments Test Eng Required: No Accompanied by: Self / Same As Patient Allergies meperidine (From Demerol) Allergy (Intermediate, Verified 04/20/25 10:03) Nausea Tobacco use date assessed: 12/22/24 Dental Screening Dental Screen Date: 12/22/24 [facility] Medical History (Updated 04/20/25 @ 10:24 by Greg Cazares MD) Hyperlipidemia Seasonal allergies Benign breast lumps GERD (gastroesophageal reflux disease) Tubular adenoma Kyphosis Surgical History History of esophagogastroduodenoscopy (EGD) History of lumpectomy of right breast Hx of colonoscopy (~10/24/24) Family History Mother Breast cancer, Onset Age: 41 Heart attack Father Stroke HTN (hypertension) Maternal Grandmother Breast cancer, Onset Age: 55 Social History Household Members: None Housing: House Are you a primary critical care physician assistant to a significant other at home: No Do you presently have visiting nurse or other home services: No Alcohol intake: never Patient Tobacco Use Status: Never used Tobacco e-Cigarette/Vaping Use: Never Used service: No Current occupational status: retired Cognitive needs: No Hearing needs: No Vision needs: Yes (rx glasses) Female Reproductive History Menstrual Age of Menarche: 12 Questionnaire PHQ-9 Over the last 2 weeks, how often have you been bothered by any of the following problems? 1. Little interest or pleasure in doing things: not at all 2. Feeling down, depressed, or hopeless: not at all 3. Trouble falling or staying asleep, or sleeping too much: not at all 4. Feeling tired or having little energy: not at all 5. Poor appetite or overeating: not at all 6. Feeling bad about yourself - or that you are a failure or have let yourself or your family down: not at all 7. Trouble concentrating on things, such as reading the newspaper or watching television: not at all 8. Moving or speaking so slowly that other people could have noticed. Or the opposite - being so fidgety or restless that you have been moving around a lot more than usual: not at all 9. Thoughts that you would be better off or of hurting yourself in some way: not at all Total score: 0 Source: Developed by Drs. Charli Richards, Dodie Kimbrough, Houston Delgadillo and colleagues, with an educational adin from [employer]. Thrive Questionnaire Date Thrive assessed: 12/22/24 I am a: Patient Within the past 12 months, did the food you bought not last and you didn't have the money to get more?: Never true Within the past 12 months, did you worry whether your food would run out before you got money to buy more?: Never true Do you have trouble paying for medicines?: No Do you have trouble getting transportation to medical appointments?: No Do you have trouble paying your heating and electricity bill?: No Do you have trouble taking care of your child, family member or friend?: No Do you have trouble with day-to-day activities such as bathing, preparing meals, shopping, managing finances, etc.?: No Are you currently unemployed and looking for a job?: No Are you interested in more education?: No THRIVE Score: 0 AUDIT C Alcohol Use Questionnaire (AUDIT-C) 1. How often do you have a drink containing alcohol?: Never 3. How often do you have six or more drinks on one occasion?: Never Total Score: 0 KELLE-7 AMB Questionnaire KELLE-7 Date KELLE - 7 assessed: 12/22/24 Feeling nervous, anxious, or on edge: 0 = Not at all Not being able to stop or control worryin = Not at all Worrying too much about different things: 0 = Not at all Trouble relaxin = Not at all Being so restless that it is hard to sit still: 0 = Not at all Becoming easily annoyed or irritable: 0 = Not at all Feeling afraid as if something awful might happen: 0 = Not at all Total KELLE-7 score (0-4 normal; 5-9 mild; 10-14 moderate; 15-21 severe): 0 Source: Developed by Drs. Charli Richards, Dodie Kimbrough, Housotn Delgadillo and colleagues, with an educational adin from [employer]. Physical exam (Primary Care) Vital Signs: Last Vital Signs Temp 97.5 F 04/20/25 10:03 Pulse 62 04/20/25 10:03 Resp 14 04/20/25 10:03 BP 149/66 H 04/20/25 10:03 Pulse Ox 98 04/20/25 10:03 Oxygen Delivery Method Room Air 04/20/25 10:03 BMI result Body Mass Index 18.8 Tobacco/Smoking Status: Tobacco use Status Tobacco use date assessed 12/22/24 04/20/25 10:05 Patient Tobacco Use Status Never used Tobacco 04/20/25 10:05 e-Cigarette/Vaping Use Never Used 04/20/25 10:05 PHQ-9: PHQ-9 Score PHQ-9: Total score 0 04/20/25 10:05 Thrive Assessment: Date of Thrive Assessment Date Thrive assessed 12/22/24 04/20/25 10:05 Office Procedures Flu Questionnaire Does the patient have a severe egg allergy?: No Does the patient have severe life threatening allergies?: No Does the patient have a fever or illness today?: No Has the patient ever had Guillain-Rosedale Syndrome?: No Has the patient ever had any past reaction to a flu shot?: No Immunizations Fluarix [id number] (PF) 45 mcg (15 mcg x 3)/0.5 mL IM syringe Performing Provider: Greg Cazares MD [facility] Documented (not given) by: TIMI Alatorre on 04/20/25 10:07 Reason Not Given: Patient Refused Coding Level of Care Code Est Pt Level 4 (88758) Complex EM visit Add On G2211 Diagnoses Hyperlipidemia E78.5 Assessment & Plan Assessment & Plan (1) Hyperlipidemia: Code(s): E78.5 - Hyperlipidemia, unspecified Category: Medical Plan: History of Present Illness - The patient is a 70-year-old female presenting for an annual wellness visit and to establish primary care. - She reports chronic back pain but has no other specific health concerns at this time. - In the past, she was evaluated for inguinal lymphadenopathy, and a subsequent ultrasound was normal. - Her preventative screenings are up to date, including a mammogram, which required a follow-up biopsy that was benign, as well as a bone density scan and a colonoscopy, all completed this year. - Her current medications include omeprazole, magnesium, flaxseed, and two different strengths of gabapentin. - She takes gabapentin 100 mg capsules four times a day and a 300 mg capsule once a day, sometimes altering the schedule at night. - She has refills available and will update her pharmacy, [facility], with the new primary care provider information. - The patient's last blood work was done in March of the previous year. - She reports a past history of low vitamin D, but it was normal on the last check, and she takes supplements to maintain adequate levels. - She declines the annual flu shot. - She has cataracts in both eyes, which are monitored by an sketch liner, and reports issues with car lights at night. - She also reports occasional urinary incontinence and does not always sleep well. - For exercise, she walks daily and performs strengthening and stretching exercises for her back. Social History - Employment: The patient is retired. 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 - Functional Status: The patient drives, including at night, and is able to conduct phone conversations without difficulty. - Exercise: She walks every day and does strengthening and stretching exercises for her back. Review of Systems - General: Denies any new health concerns. - Eyes: Reports cataracts in both eyes and notes issues with bright car lights at night. - Ears: Reports hearing is okay. - Musculoskeletal: Reports chronic back pain. - Genitourinary: Reports occasional urinary leakage. - Neurological/Sleep: Reports not always sleeping well. Physical Exam General: Cooperative and healthy appearing Nutritional Appearance: Well nourished Orientation/consciousness: Patient oriented x3 Limitations: No limitations Head: Normal to inspection General: Appearance normal, both eyes and all related structures Neck: Normal visual inspection Chest: Normal palpation of entire chest wall Respiratory: N ormal respiratory effort Neurology: Patient oriented x3, no issues with hearing, able to make phone conversations. Results - Imaging: An ultrasound of the groin for lymphadenopathy was normal. - Screening Tests: A mammogram followed by a biopsy was benign. - Screening Tests: Colonoscopy and bone density scan were completed this year, with no adverse results mentioned. - Labs: Previous vitamin D level was reportedly fine at the last check. Plan - Will order routine annual blood work, including checks for anemia, glucose, kidney function, liver function, and cholesterol. - A vitamin D level test will be added to the lab order as requested. - Patient advised to go to the lab fasting. - Will send a prescription to [facility] to update the patient's primary care provider in their system for future refills. - Patient declined the flu shot. - Patient to continue with her current exercise regimen of daily walking and back strengthening exercises. - Patient to continue follow-up with ophthalmology for cataracts, with her next appointment in June. - Recommended a follow-up visit in six months, which will be scheduled as a wellness visit. Discussion Notes I discussed with the patient that I will be ordering routine annual blood work for her, which includes checks for anemia, sugar, kidney and liver functions, and cholesterol. At her request, I also added a vitamin D level check to the order, noting her past history. I instructed her to go for the labs fasting and confirmed she could use the lab on [address]. We reviewed her medication list, and I will send a script to her pharmacy to establish myself as her primary care provider for future refill authorizations. The patient declined the flu shot. I recommended she return for a follow-up visit in six months and clarified how today's visit and the next wellness visit would be handled with her insurance. Patient Instructions - Please go for the blood work that has been ordered for you. - You must not eat or drink anything after midnight the night before your blood test. - You can go to the lab on [address] for your blood test. - Continue taking your current medications as prescribed. - To ensure you can get refills in the future, please make sure your pharmacy ([facility]) knows that I am your new primary care doctor. - Continue your daily walks and back-strengthening exercises. - Keep your follow-up appointment with your eye doctor, Dr. Cope, in June to monitor your cataracts. - Please schedule a follow-up appointment with our office to be seen in six months. Orders: Orders Complete Blood Count no Diff Today E78.5 - Hyperlipidemia, unspecified Basic Metabolic Panel Today E78.5 - Hyperlipidemia, unspecified Liver Panel Today E78.5 - Hyperlipidemia, unspecified Thyroid Stimulating Hormone Today E78.5 - Hyperlipidemia, unspecified UA and rflx microscopic Today E78.5 - Hyperlipidemia, unspecified Influenza [id number] Immunization Today Z23 - Encounter for immunization Lipid Panel Today E78.5 - Hyperlipidemia, unspecified Vitamin D 25-OH (D2 and D3) Today E78.5 - Hyperlipidemia, unspecified Medications: New gabapentin 300 mg PO BEDTIME 90 caps 1RF Refilled omeprazole 20 mg PO DAILY 90 caps 3RF
== END 2025-04-20 10:34 | disposition home or self-care (01) ==
LOC: HO.HMCSH 09:55
PROVIDERS: PCP Internal Medicine; Visit Provider Internal Medicine
DX: E78.5 Hyperlipidemia, unspecified (principal); Z23 Encounter for immunization

== ENCOUNTER → 2025-04-20 09:55 | Outpatient (BNVA) | payer MEDICARE, OTHER, SELFPAY | PROVIDERS: PCP Internal Medicine; Visit Provider Internal Medicine | DX: E78.5 Hyperlipidemia, unspecified (principal) | CPT/HCPCS: 90471; 99212 ==

== ENCOUNTER 2025-04-21 09:04 | Outpatient (REF) | payer MEDICARE, OTHER, SELFPAY ==
--- OUTSIDE RECORDS SUMMARY | 2023-12-20 09:20 | XMS_ITS ---
Author Organization [facility] Address [address] [place] [address] Care Team Providers Care Deodorizer Operator Name Role Phone Tyrone (RETIRED) Bishop ALVARADO Primary Care Provide r Unavailable Charli Hart Unavailable [phone] REASON FOR VISIT epigastric pain,abn ct scan sm bwl Problems Problem Type SNOMED Code ICD Code Onset Dates Problem Status W/U Status Risk Notes Problem Gastro-esophagea l reflux disease without esophagitis (716174743) Gastro-esophage al reflux disease without esophagitis (K21.9) Active confirmed Problem Benign neoplasm of stomach (45907778) Gastric polyps (K31.7) Active confirmed Encounters Encounter Location Date Provider Diagnosis [facility] [place] [address] [id number] 12/20/2023 Charli Hart 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 ; Abn findings-GI tract R93.3 ; Gastro-esophageal reflux disease without esophagitis K21.9 ; Gastric polyps K31.7 and Weight loss R63.4 Assessments Encounter Date Diagnosis (ICD Code) Assessment Notes Treatment Notes Treatment Clinical Notes Section Notes 12/20/2023 Other specified functional intestinal disorders (ICD-10 - K59.89) 12/20/2023 Abn findings-GI tract (ICD-10 - R93.3) 12/20/2023 Gastro-esophagea l reflux disease without esophagitis (ICD-10 - K21.9) 12/20/2023 Gastric polyps (ICD-10 - K31.7) 12/20/2023 Weight loss (ICD-10 - R63.4) Plan Of Treatment No Information Progress Notes * DIANE NEWB:12/1954 (70 yo F)Acc No.[id number]:12/20/2023 EGD/MAC Patient: SABINA TOM Provider: Castro Hart MD :1955 A ge:68 Y S ex:Female Date:12/20/2023 Address:[address] [place] [address] Pcp:Bishop Hansen (RETIRED )MD Subjective: * Chief Complaints: * 1 . Epigastric pain,abn ct scan sm bwl. * Medical History: Objective: * Vitals: Assessment: * Assessment: 1. O ther specified functional intestinal disorders - K59.89 (Primary) 2 . A bn findings-GI tract - R93.3 3 . G jane-esophageal reflux disease without esophagitis - K21.9 4 . G astric polyps - K31.7 5 . W eight loss - R63.4 Plan: * Treatment: * Procedure Codes: 4 4361 SMALL BOWEL ENDOSCOPY/BIOPSY * * The named appointment provid er may or may not be the originator of this progress note, and it is not deemed complete until electronically signed by the appointment provider. Sign off status: Pending * Provider: Castro Hart MD Date: 12/20/2023 Generated for Theresa allison/Helena/Arletteitting on: 06/21/2024 09:42 AM EST
--- OUTSIDE RECORDS SUMMARY | 2024-10-24 05:00 | XMS_ITS ---
Author Organization [facility] Address [address] [place] [id number] Care Team Providers Care Racking Technician Name Role Phone Tyrone (RETIRED) Bishop ALVARADO Primary Care Provide Charli Cox [phone] REASON FOR VISIT screening Encounters Encounter Location Date Provider Diagnosis [facility] [place] Outpatient [address] [place] [id number] 10/24/2024 Charli Hart Colon cancer scree brittani Z12.11 ; Adenomatous polyp of cecum D12.0 ; Adenoma of colon D12.6 and Diverticulosis of large intestine without perforation or abscess without bleeding K57.30 Assessments Encounter Date Diagnosis (ICD Code) Assessment Notes Treatment Notes Treatment Clinical Notes Section Notes 10/24/2024 Colon cancer screening (ICD-10 - Z12.11) 10/24/2024 Adenomatous polyp of cecum (ICD-10 - D12.0) 10/24/2024 Adenoma of colon (ICD-10 - D12.6) 10/24/2024 Diverticulosis of large intestine without perforation or abscess without bleeding (ICD-10 - K57.30) Plan Of Treatment No Information Progress Notes * SABINA NEWDOB:12/1954 (70 yo F)Acc No.[id number]:10/24/2024 COLON WITH MAC Patient: SABINA TOM Provider: Castro Hart MD :1955 A ge:69 Y S ex:Female Date:10/24/2024 Address:[address] [place] [address] Pcp:Bishop Hansen (RETIRED )MD Subjective: * Chief Complaints: * 1 . Screening. * Medical History: Objective: * Vitals: Assessment: * Assessment: 1. C olon cancer screening - Z12.11 (Primary) 2 . A denomatous polyp of cecum - D12.0 3 . A denoma of colon - D12.6 4 . D iverticulosis of large intestine without perforation or abscess without bleeding - K57.30 Plan: * Treatment: * Procedure Codes: 4 5380 COLONOSCOPY AND BIOPSY, Modifiers: PT , 0529F INTRVL 3+YRS PTS CLNSCP DOCD, 0528F RCMND FLW-UP 10 YRS DOCD, Modifiers: 1P * * The named appointment provid er may or may not be the originator of this progress note, and it is not deemed complete until electronically signed by the appointment provider. Sign off status: Pending * Provider: Castro Hart MD Date: 0 10/24/2024 Generated for Theresa allison/Helena/Arletteitting on: 1 06/21/2024 09:43 AM EST
--- OUTSIDE RECORDS SUMMARY | 2025-04-21 09:43 | XMS_ITS | Patient Health Record ---
[facility] [place] Address [address] [place] [address] Care Team Providers Care Actuarial Analyst Name Role Phone Bishop Hansen MD Primary Care Provider Yasir Asher Unavailable [phone] Tiesha Mary Unavailable [phone] Magen Mcintosh Unavailable [phone] Allergies Allergen (clinical drug ingredient) Drug/Non Drug [...] Problem Acquired hammer toe of right foot ([id number] 105) Hammer toe of right foot (M20.41) Active confirmed Problem Raynaud's disease (900600778) Raynaud's disease without gangrene (I73.00) Active confirmed Vital Signs Blood pressure diastolic 78 mm Hg 09/04/2024 Height 5ft6in in 09/04/2024 Blood pressure systolic 120 mm Hg 09/04/2024 Weight 115 lbs 09/04/2024 BMI 18.56 kg/m2 09/04/2024 Encounters Encounter Location Date Provider Diagnosis [facility] [address] [address] 08/05/2024 Yasir Josse Raynaud's disease without gangrene I73.00 ; Ingrowing nail L60.0 ; Pain in right toe(s) M79.674 and Cellulitis of toe of right foot L03.[address] [facility] [address] 08/21/2024 Tiesha Black Raynaud's disease without gangrene I73.00 ; Cellulitis of toe of right foot L03.031 ; Ingrowing nail L60.0 and Pain in right toe(s) M79.674 [facility] [address] 09/04/2024 Tiesha Black Raynaud's disease without gangrene I73.00 ; Hammer toe of right foot M20.41 and Pain in right toe(s) M79.[address] [address] 08/04/2024 Magen Mcintosh [address] [address] 08/15/2024 Yasir Loaiza [address] [address] 08/22/2024 Yasir Loaiza Assessments Encounter Date Diagnosis [...] Medicare [employer] [address] [place] [address] [id number] [place], [place] Self - patient is the insured [facility] ([facility]) [address] [place] [address] [id number] [place], [place] Self - patient is the insured Medical (General) History Medical History History ICD Code Back,Hip,and Knee pain Broken bones Headaches/Eye Migraines Chicken pox Arthritis Surgical History Surgery Date(Month/Year) tonsillectomy 1967 breast mass removal 03/1991
--- OUTSIDE RECORDS SUMMARY | 2025-04-21 09:43 | XMS_ITS | Patient Health Record ---
Author Organization [facility] Address [address] [place] [address] Care Team Providers Care Telephone Repairer Name Role Phone Tyrone (RETIRED) Bishop ALVARADO Primary Care Provide Charli Cox [phone] Allergies Allergen (clinical drug ingredient) Drug/Non Drug Allergy documented on EMR Reaction Allergy Type Onset Date Status meperidine Demerol Unknown Drug Allergy Active Results Component Value Reference Range Notes Pathology (Not yet reviewed by provider) Interpretation: Performing Lab:[facility], [address] [place] [id number] Notes/Report: Reason For Referral No Information Medications Medication [...] Multi Vitamin/Minerals Orally Active Omeprazole 20 MG Oral; Duration: 90 Active Gabapentin 100 MG Oral; Duration: 90 Active Immunizations Vaccine Route Administration Date Status Comme nts Influenza Unknown 04/23/2024 Refused Problems Problem Type SNOMED Code ICD Code Onset Dates Problem Status W/U Status Risk Notes Problem Colon cancer screening (663310737) Colon cancer screening (Z12.11) Active confirmed Problem Gastro-esophageal reflux disease without esophagitis (772489234) Gastro-esophag eal reflux disease without esophagitis (K21.9) Active confirmed Problem Epigastric pain (51921802) Abdominal pain, epigastric (R10.13) Active confirmed Problem Benign neoplasm of stomach (24115434) Gastric polyps (K31.7) Active confirmed Problem Abnormal CT scan, small bowel (R93.3) Active confirmed Problem Gastroesophageal reflux disease (disorder) (627131743) Chronic GERD (K21.9) Active confirmed Vital Signs Temperature 96.9 degrees Fahrenheit 04/23/2024 Blood pressure diastolic 00 mm Hg 04/23/2024 Height 66.5 in 04/23/2024 Blood pressure systolic 000 mm Hg 04/23/2024 Weight 115 lb 6 oz lbs 04/23/2024 BMI 18.34 kg/m2 04/23/2024 Encounters Encounter Location Date Provider Diagnosis [facility] [address] [place] [address] [phone] 10/24/2024 Charli Hart Colon cancer screeni ng Z12.11 ; Adenomatous polyp of cecum D12.0 ; Adenoma of colon D12.6 and Diverticulosis of large intestine without perforation or abscess without bleeding K57.30 [facility] [address] [place] [phone] 04/23/[address] scan, sm all bowel R93.3 ; Chronic GERD K21.9 and Colon cancer screening Z12.11 [facility] [address] [place] [phone] 10/20/2024 Charli Hart Assessments Encounter Date Diagnosis (ICD Code) Assessment Notes Treatment Notes Treatment Clinical Notes Section Notes 10/24/2024 Colon cancer screening (ICD-10 - Z12.11) 10/24/2024 Adenomatous polyp of cecum (ICD-10 - D12.0) 04/23/[address] scan, small bowel (ICD-10 [...] to keep you advised of her progress. 10/24/2024 Adenoma of colon (ICD-10 - D12.6) 04/23/2024 Colon cancer screening (ICD-10 - Z12.11) [...] to keep you advised of her progress. 10/24/2024 Diverticulosis of large intestine without perforation or abscess without bleeding (ICD-10 - K57.30) Plan Of Treatment Pending Test Test Name Order Date LIVER PROFILE 12/18/2023 CRP 12/18/2023 CBC w DIFF 12/18/2023 SED RATE (ESR) 12/18/2023 CELIAC PANEL #10 12/18/2023 Pathology 10/24/2024 Future Test Test Name Order Date COLONOSCOPY 11/17/2014 UPPER GI ENDOSCOPY 12/18/2023 COLONOSCOPY 04/23/2024 Insurance Providers Payer Name Payer Address Payer Phone Subscriber Number Group Number Insured Name Patient Relationship to Insured Coverage Start Date Coverage End Date MEDICARE OF [place] [address] [place] [address] [id number] [place], [place] Self - patient is the insured [employer] ([employer]) [address] [place] [address] [id number] JOSETO N, [place] Self - patient is the insured Medical (General) History Medical History History ICD Code History of tubular adenomas removed in 1995--neg. colonoscopies in 2003 and 2009 Denies ND,DM,CVA,Lung disease,renal dise ase Seasonal allergies GERD Negative colonoscopy 02/2015 Upper endoscopy in December of 024 using a colonoscope to evaluate the proximal [...]
[2025-04-21 10:35] LABS: Appearance Urine Cloudy; Glucose Urine UA Negative (Negative); PH 7.0 (5.0-9.0); Specific Gravity - Urine 1.020 (1.005-1.025); UMIC TRIGGER UA YES
[2025-04-21 10:46] LABS: Hematocrit 45.8 % (37.0-47.0); Hemoglobin 14.8 g/dl (12.0-16.0); Mean Corpuscular HGB Conc 32.3 g/dl (31.0-35.0); Mean Corpuscular Hemoglobin 31.4 pg (27.0-33.0); Mean Corpuscular Volume 97.0 fL (80.0-98.0); NRBC Abs Auto 0.000 X10*3/uL (0.0-0.012); NRBC Pct Auto 0.0 /100WBC (0.0-0.2); Platelet Count 236 X10*3/uL (160-400); Red Blood Count 4.72 X10*6/uL (4.20-5.50); White Blood Count 3.7 X10*3/uL (4.8-10.8)
[2025-04-21 11:11] LABS: Alanine Aminotransferase 25 U/L (0-31); Albumin Level 4.5 g/dL (3.5-5.0); Alkaline Phosphatase 94 U/L (39-117); Anion Gap 10 (12-20); Aspartate Amino Transferase 28 U/L (5-31); Blood Urea Nitrogen 21 mg/dL (9-16); Calcium 9.4 mg/dL (8.4-10.2); Carbon Dioxide 30 mmol/L (22-29); Chloride 104 mmol/L (96-108); Cholesterol 221 mg/dL (<200); Estimated Glomerular Filt Rate 60; HDL Cholesterol 81 mg/dL (>40); Potassium 3.4 mmol/L (3.3-5.1); Sodium 141 mmol/L (135-145); Total Protein 7.1 g/dL (6.5-8.0); Triglycerides 73 mg/dL (<150)
[2025-04-21 11:13] LABS: Thyroid Stimulating Hormone 1.91 uIU/mL (0.32-4.0)
[2025-04-25 13:33] LABS: Vitamin D 25-OH, D2 <4 ng/mL; Vitamin D 25-OH, D3 59 ng/mL; Vitamin D 25-OH, Total 59 ng/mL (30-100)
== END 2025-04-21 09:05 | disposition home or self-care (01) ==
LOC: HO.HMGCLDS 09:04
PROVIDERS: PCP Internal Medicine; Visit Provider Internal Medicine
DX: E78.5 Hyperlipidemia, unspecified (principal); Z13.21 Encounter for screening for nutritional disorder
CPT/HCPCS: 36415; 80048; 80061; 80076; 81001; 82306; 84443; 85027